=== PATIENT | female | born 1940 | race Caucasian/White ===

== ENCOUNTER 2019-11-13 14:49 | Outpatient (CLI) | payer MEDICARE, OTHER, SELFPAY ==
--- NOTE | ~2019-11-13 | MM_ITS ---
EXAMINATION: MM screening [facility] BI w cynthia HISTORY: Screening mammogram TECHNIQUE: Craniocaudal and mediolateral oblique 3-D tomosynthesis images were obtained and synthetic 2-D images were generated. CAD analysis was submitted and interpreted. COMPARISON: 10/16/2018, 09/06/2017, 07/18/2016 BREAST PARENCHYMAL COMPOSITION: There are scattered areas of fibroglandular density. FINDINGS: There is no evidence of suspicious mass, calcification, or architectural distortion to sugg est malignancy in either breast. There has been no suspicious interval change. IMPRESSION: 1. No mammographic evidence of malignancy. 2. Recommend routine screening mammography in one year. BI-RADS Category 1: Negative Reviewed, dictated and finalized at location A.
--- NOTE | ~2019-11-13 | DEXA_ITS ---
Bone Density Report Name: Elisabet Quan Age: 79 Sex: Female Ethnicity: White Date of : 1940 Indication: postmenopausal; prior fracture; asthma or emphysema; Referring Provider: NEELAM DODD Study: Bone densitometry was performed. Exam Date: November 13, 2019 Accession number: [id number] Bone Density: Region BMD T-score Z-score Classification AP Spine (L1-L4) 0.877 -1.5 1.0 Osteopenia Femoral Neck (Left) 0.559 -2.6 -0.4 Osteoporosis Total Hip (Left) 0.768 -1.4 0.5 Osteopenia Total Hip Bilateral Avg 0.760 -1.5 0.4 Osteopenia Femoral Neck (Right) 0.555 -2.6 -0.5 Osteoporosis Total Hip (Right) 0.750 -1.6 0.3 Osteopenia World Health Organization criteria for BMD impression classify patients as: Normal (T-score at or above -1.0), Osteopenia (T-score between -1.0 and -2.5), or Osteoporosis (T-score at or below -2.5). 10-year Fracture Risk: FRAX not reported because: Some T-score for Spine Total or Hip Total or Femoral Neck at or below -2.5 Clinical Information Provided by Patient: Has had a low trauma fracture Has used the following medications: Vitamin D Has the following medical conditions: Asthma or Emphysema Patient maximum height was 64 Menopause Age: 57 Does not regularly consume dairy products Drinks caffeinated beverages Onset of menses at age 16 Number of children 1 Impression: The patient has established osteoporosis, based on the Left Femoral Neck T-score and the existence of a prior fracture. The patient has risk factors, including: previous fracture. Discussion: HIGH RISK OF FRACTURE. BONE DENSITY IS UNDESIRABLY LOW AT ONE OR MORE SKELETAL SITES, CONSISTENT WITH POSTMENOPAUSAL OSTEOPOROSIS. This patient's lowest T-score, in a patient who has previously fractured, meets the World Health Organization's (WHO) criteria for severe osteoporosis. In untreated patients, the risk of osteoporotic fracture increases approximately two-fold for each 1.0 SD decrease in T-score. Low bone density is not the only risk factor for fracture; also consider factors such as patient's age, frailty or poor health, risk of falling, risk of injury, previous osteoporotic fracture, family history of osteoporosis, cigarette smoking, low body weight, etc. Not everyone with low bone mineral density has osteoporosis; osteomalacia and other metabolic bone disorders should also be considered. Patients who have osteoporosis should be evaluated for specific diseases and conditions (secondary causes) that may cause or contribute to bone loss. The [place] [employer]ocrinologists (AACE) and National Osteoporosis Foundation (NOF) recommend pharmacologic intervention for all postmenopausal women whose T-score is in this range. The patient should follow a healthful lifestyle (good nutrition with adequate calcium and vitamin D,
== END 2019-11-13 14:50 | disposition home or self-care (01) ==
LOC: ANHIMG 14:57
PROVIDERS: Visit Provider Obstetrics & Gynecology Gynecology
DX: Z12.31 Encounter for screening mammogram for malignant neoplasm of breast (principal); Z78.0 Asymptomatic menopausal state; M85.89 Other specified disorders of bone density and structure, multiple sites; M81.0 Age-related osteoporosis without current pathological fracture
CPT/HCPCS: 77063; 77067; 77080

== ENCOUNTER 2019-11-22 11:19 | Outpatient (CLI) | payer MEDICARE, OTHER, SELFPAY ==
--- NOTE | ~2019-11-22 | XR_ITS ---
XR foot RT min 3V 11/22/2019 11:43 Indication: Right foot pain. No recent trauma. Procedure: 4 views right foot Comparison: No prior studies for comparison. Findings: There is osteotomy of the first metatarsal medially consistent with hallux correction. Ther e is mild degenerative change of the first MTP joint. Osteopenia. Lisfranc joint intact. There is a d egenerative calcaneal enthesophyte of the plantar surface. No acute fracture or traumatic malalignmen t. No radiopaque foreign bodies. Impression: 1: Mild osteoarthritis of the first MTP joint with surgical changes consistent with hallux correction . Reviewed, dictated and finalized at location A. Impression: 1: Mild osteoarthritis of the first MTP joint with surgical changes consistent with hallux correction.
== END 2019-11-22 11:20 | disposition home or self-care (01) ==
LOC: ANHIMG 11:28
PROVIDERS: PCP Family Medicine; Visit Provider Physician Assistant
DX: M79.671 Pain in right foot (principal); M19.071 Primary osteoarthritis, right ankle and foot
CPT/HCPCS: 73630

== ENCOUNTER 2020-02-12 10:49 | Outpatient (CLI) | payer MEDICARE, OTHER, SELFPAY ==
--- NOTE | ~2020-02-12 | CT_ITS ---
EXAMINATION:CT lung screening DATE: 02/12/2020 11:05 INDICATION: Personal history of nicotine dependence. Smoker who quit 12 years ago with 45 pack year h istory. TECHNIQUE: Computed tomography (CT) of the chest was performed without intravenous contrast. Automate d exposure control and iterative reconstruction technique were employed. The dose-length product (DLP ) was 68.20 mGy-cm. COMPARISON: Chest CT 01/07/2019 FINDINGS: There is mild scarring at the lung apices. There is severe emphysema. There is mild atelect asis bilaterally. No pleural effusion. The heart size is normal. There are coronary artery calcificat ions. No pericardial effusion. There are old healed right rib fractures. There is mild thoracic spond ylosis. IMPRESSION: 1. Lung-RADS category 2: Benign appearance or behavior. Continue annual screening with noncontrast lo w-dose chest CT in 12 months. Reviewed, dictated and finalized at location A. IMPRESSION: 1. Lung-RADS category 2: Benign appearance or behavior. Continue annual screeni ng with noncontrast low-dose chest CT in 12 months.
== END 2020-02-12 10:50 | disposition home or self-care (01) ==
LOC: ANHIMG 10:51
PROVIDERS: PCP Family Medicine; Visit Provider Internal Medicine Critical Care Medicine
DX: Z12.2 Encounter for screening for malignant neoplasm of respiratory organs (principal); Z87.891 Personal history of nicotine dependence
CPT/HCPCS: G0297

== ENCOUNTER 2020-02-17 11:06 | Emergency (ER) | payer MEDICARE, OTHER, SELFPAY ==
--- NOTE | ~2020-02-17 | CT_ITS ---
EXAMINATION: CT facial & cervical spine wo DATE: 02/17/2020 13:44 INDICATION: Head injury. TECHNIQUE: Computed tomography (CT) of the maxillofacial region and cervical spine was performed with out intravenous contrast. Automated exposure control and iterative reconstruction technique were empl oyed. The dose-length product was 199.05 mGy-cm. COMPARISON: None FINDINGS: MAXILLOFACIAL CT: There are likely changes of ocular lens replacement surgeries. There is mild mucosal thickening in th e ethmoid sinuses. There is leftward deviation of the nasal septum. No fracture. CERVICAL SPINE CT: There is 11 degrees levoscoliosis of cervical spine. There is kyphosis of cervical spine. There is 2 mm anterolisthesis of C3 on C4. There is mild chronic height loss of T7 vertebral body. There is mild ly decreased disc height at C4-C5 and C5-C6 and moderately decreased disc height at C6-C7. The follow ing disc levels are specifically discussed: C2-C3: There is no uncovertebral joint osteoarthritis. There is severe bilateral facet joint osteoart hritis. There is no neural foraminal stenosis. There is no central canal stenosis. C3-C4: There is mild bilateral uncovertebral joint osteoarthritis. There is severe right and mild lef t facet joint osteoarthritis. There is mild right neural foraminal stenosis. There is mild central ca nal stenosis. C4-C5: There is severe right and mild left uncovertebral joint osteoarthritis. There is severe right facet joint osteoarthritis. There is mild right neural foraminal stenosis. There is mild central nam l stenosis. C5-C6: There is mild bilateral uncovertebral joint osteoarthritis. There is moderate facet joint oste oarthritis. There is mild right neural foraminal stenosis. There is mild central canal stenosis. C6-C7: There is mild right and severe left uncovertebral joint osteoarthritis. There is no facet join t osteoarthritis. There is mild left neural foraminal stenosis. There is mild central canal stenosis. C7-T1: There is no uncovertebral joint osteoarthritis. There is mild bilateral facet joint osteoarthr itis. There is no neural foraminal stenosis. There is no central canal stenosis. IMPRESSION: 1. No fracture. 2. Moderate cervical spondylosis. 3. Cervical levoscoliosis. Reviewed, dictated and finalized at location A.
--- NOTE | ~2020-02-17 | CT_ITS ---
EXAMINATION: CT brain wo con DATE: 02/17/2020 13:43 INDICATION: Head injury. TECHNIQUE: Computed tomography (CT) of the head was performed without intravenous contrast. The mA wa s adjusted according to patient size. Iterative reconstruction technique was employed. The dose-lengt h product was 605.33 mGy-cm. COMPARISON: None FINDINGS: There is no intracranial hemorrhage, acute infarction, or abnormal intracranial mass lesion . There are scattered areas of low attenuation in the cerebral white matter, which is within normal l imits for the patient's age. The ventricles are normal in size. There are likely changes of ocular le ns replacement surgeries. The paranasal sinuses are clear. The mastoid air cells are normal. IMPRESSION: 1. Normal aging brain. Reviewed, dictated and finalized at location A. IMPRESSION: 1. Normal aging brain.
[2020-02-17 11:15] VITALS: BP 151/67; PULSE 81; RESP 18; TEMP 37; O2SAT 97
--- NOTE | 2020-02-17 11:25 | PC.NURSE ---
Pt unable to verify home medications. Pt states she forgot her list at home.
--- NOTE | 2020-02-17 12:59 | ED.FALL ---
HPI - Fall General Chief Complaint: Fall Stated Complaint: fall, head injury Time Seen by Provider: 02/17/20 12:36 Source: patient History of Present Illness HPI Narrative: Patient 3 and her oxygen nasal cannula tube and fell forward, complaining of facial pain. Patient denies any loss of consciousness headache, possible neck pain. Patient denies other injuries, drove herself to the emergency room. Related Data Home Medications Medication Instructions Recorded Confirmed arformoterol 15 mcg/2 mL solution 2 ml INHALATION BID 06/10/19 10/17/19 for nebulization aspirin 81 mg tablet,delayed 81 mg PO DAILY 06/10/19 10/17/19 release fluticasone propionate 50 1 spray NASAL DAILY 06/10/19 10/17/19 mcg/actuation nasal spray,suspension revefenacin 175 mcg/3 mL solution 175 mcg INHALATION DAILY 06/10/19 10/17/19 for nebulization budesonide 0.5 mg/2 mL suspension 0.5 mg INHALATION BID ml 10/15/19 10/17/19 for nebulization Allergies Allergy/AdvReac Type Severity Reaction Status Date / Time amlodipine Allergy Unknown unk Verified 02/17/20 11:24 amoxicillin Allergy Unknown unk Verified 02/17/20 11:24 cefdinir Allergy Unknown unk Verified 02/17/20 11:24 fosinopril Allergy Unknown unk Verified 02/17/20 11:24 Sulfa (Sulfonamide Allergy Unknown unk Verified 02/17/20 11:24 Antibiotics) sulfamethizole Allergy Unknown unk Verified 02/17/20 11:24 trimethoprim Allergy Unknown unk Verified 02/17/20 11:24 promethazine AdvReac Severe Jittery Verified 02/17/20 11:24 Review of Systems Review of Systems: Narrative: CONSTITUTIONAL: Denies fever, chills, or sweats. EYES: Denies visual changes, redness, or discharge. ENT: Denies rhinorrhea, congestion, sore throat, or otalgia. CARDIOVASCULAR: Denies chest pain, palpitations, or edema. RESPIRATORY: Denies cough or dyspnea. GASTROINTESTINAL: Denies abdominal pain, nausea, vomiting, or diarrhea. GENITOURINARY: Denies dysuria or hematuria. SKIN: Denies rash or itching. MUSCULOSKELETAL: Denies back pain, joint pain, or myalgia. NEUROLOGIC: Denies headache, numbness, or weakness. PSYCHIATRIC: Denies anxiety or depression. [facility] Past Medical History Medical History Acute viral pharyngitis BMI 26.0-26.9,adult COPD exacerbation Depression with anxiety History of kidney stones History of peptic ulcer History of tobacco abuse Low back pain radiating to left leg Mixed hyperlipidemia Osteoarthritis involving multiple joints on both sides of body Right foot pain Seasonal allergic rhinitis Urinary frequency Vitamin D deficiency Family History Family History Mother Hypertension Cerebrovascular accident, Onset Age: 72 Sibling Asthma Father Acute myocardial infarction Family history of coronary artery disease Family history of congestive heart failure Patient's father is , Onset Age: 71 Grandparent Acute myocardial infarction Cerebrovascular accident Family history of malignant neoplasm Social History Social History Smoking status: Former smoker Smoking end date: 07/23/07 Alcohol intake: never Exam Narrative: Exam Narrative: General appearance: Well-developed, well-nourished Skin: Normal color, nasal abrasion, left forearm skin tear. Head: Normocephalic, nontraumatic Eyes: Clear conjunctiva ENT: Oropharynx normal, ears normal, nose normal Neck: Supple, nontender Chest and respiratory: Airway patent, no respiratory distress, no accessory muscle use Heart: Regular rate/rhythm Abdomen: Soft, nontender, no organomegaly, quiet bowel sounds Vascular: Normal peripheral pulses, normal capillary refill. Musculoskeletal: Normal range of motion, nontender back mild tenderness left neck, Neurologic: Alert and oriented ?3, TAP PULLER is normal as tested, no gross motor deficit
[2020-02-17] MEDS: ACETAMINOPHEN 325 MG TABLET 650 MG PO (13:27)
[2020-02-17] MEDS: IBUPROFEN 600 MG TABLET PO (13:28)
--- NOTE | 2020-02-17 13:28 | PC.NURSE ---
Pt to CT
[2020-02-17 14:30] VITALS: BP 162/78; PULSE 62; RESP 18; O2SAT 100
== END 2020-02-17 14:35 | disposition home or self-care (01) ==
PROVIDERS: Emergency Provider Emergency Medicine; PCP Family Medicine
DX: S00.83XA Contusion of other part of head, initial encounter (principal); J44.9 Chronic obstructive pulmonary disease, unspecified; E78.2 Mixed hyperlipidemia; M19.90 Unspecified osteoarthritis, unspecified site; E55.9 Vitamin D deficiency, unspecified; Z87.442 Personal history of urinary calculi; Z87.11 Personal history of peptic ulcer disease; Z87.891 Personal history of nicotine dependence; Z79.82 Long term (current) use of aspirin; W18.09XA Striking against other object with subsequent fall, initial encounter
CPT/HCPCS: 70450; 70486; 72125; 99284; A9270

== ENCOUNTER 2020-11-13 13:27 | Outpatient (CLI) | payer MEDICARE, OTHER, SELFPAY ==
[2020-11-13 15:04] LABS: Vitamin D 25 Hydroxy 82.8 ng/mL
== END 2020-11-13 13:28 | disposition home or self-care (01) ==
PROVIDERS: PCP Physician Assistant; Visit Provider Obstetrics & Gynecology Gynecology
DX: E55.9 Vitamin D deficiency, unspecified (principal)
CPT/HCPCS: 36415; 82306

== ENCOUNTER 2020-11-13 13:34 | Outpatient (CLI) | payer MEDICARE, OTHER, SELFPAY ==
--- NOTE | ~2020-11-13 | XR_ITS ---
XR wrist LT min 3V 11/13/2020 13:53 Indication: Left wrist pain Procedure: 4 views left wrist Comparison: No prior studies for comparison. Findings: There is polyarticular osteoarthritis of the triscaphe and first carpometacarpal joint. Nor mal mineralization. No significant soft tissue abnormality. No foreign bodies. No acute fracture or t raumatic malalignment. Impression: 1: No acute bone or joint abnormality. Reviewed, dictated and finalized at location A. Impression: 1: No acute bone or joint abnormality.
--- NOTE | ~2020-11-13 | XR_ITS ---
XR wrist RT min 3V 11/13/2020 13:53 Indication: Right wrist pain Procedure: 4 views right wrist Comparison: No prior studies for comparison. Findings: There is osteoarthritis of the first carpal metacarpal, MCP and triscaphe joints. No fractu re or traumatic malalignment. No significant soft tissue abnormality. No foreign bodies. Impression: 1: Moderate polyarticular osteoarthritis Reviewed, dictated and finalized at location A. Impression: 1: Moderate polyarticular osteoarthritis
== END 2020-11-13 13:35 | disposition home or self-care (01) ==
PROVIDERS: PCP Physician Assistant; Visit Provider Plastic Surgery
DX: M19.031 Primary osteoarthritis, right wrist (principal)
CPT/HCPCS: 36415; 73110; 82306

== ENCOUNTER 2020-11-20 10:56 | Outpatient (CLI) | payer MEDICARE, OTHER, SELFPAY ==
--- NOTE | ~2020-11-20 | MM_ITS ---
EXAMINATION: MM screening [facility] w cynthia HISTORY: Screening TECHNIQUE: Craniocaudal and mediolateral oblique 3-D tomosynthesis images were obtained and synthetic 2-D images were generated. CAD analysis was submitted and interpreted. COMPARISON: No prior mammogram is available for comparison at this institution. BREAST PARENCHYMAL COMPOSITION: There are scattered areas of fibroglandular density. FINDINGS: There is no evidence of suspicious mass, calcification, or architectural distortion to sugg est malignancy in either breast. There has been no suspicious interval change. IMPRESSION: 1. No mammographic evidence of malignancy. 2. Recommend routine screening mammography in one year. BI-RADS Category 1: Negative Reviewed, dictated and finalized at location A.
== END 2020-11-20 10:57 | disposition home or self-care (01) ==
LOC: ANHIMG 10:59
PROVIDERS: PCP Physician Assistant; Visit Provider Obstetrics & Gynecology Gynecology
DX: Z12.31 Encounter for screening mammogram for malignant neoplasm of breast (principal)
CPT/HCPCS: 77063; 77067

== ENCOUNTER 2020-11-20 11:28 | Outpatient (CLI) | payer MEDICARE, OTHER, SELFPAY ==
[2020-11-20 12:12] LABS: Alanine Aminotransferase 15 U/L (4-35); Alkaline Phosphatase 54 U/L (38-126); Anion Gap 6 mmol/L (8-16); Aspartate Amino Transferase 25 U/L (14-36); Bilirubin,Total 0.4 mg/dL (0.2-1.3); Blood Urea Nitrogen 28 mg/dL (7-17); Calcium 8.6 mg/dL (8.4-10.2); Carbon Dioxide 28 mmol/L (22-30); Chloride 107 mmol/L (98-107); Estimated Glomerular Filt Rate 48; Glucose 98 mg/dL (65-105); Potassium 4.5 mmol/L (3.4-5.0); Sodium 141 mmol/L (137-145)
[2020-11-20 12:43] LABS: Thyroid Stimulating Hormone 0.629 uIU/mL (0.465-4.680)
[2020-11-20 13:20] LABS: Folic Acid > 20.0 ng/mL (2.76->20)
== END 2020-11-20 11:29 | disposition home or self-care (01) ==
PROVIDERS: PCP Physician Assistant; Visit Provider Physician Assistant
DX: I10 Essential (primary) hypertension (principal)
CPT/HCPCS: 36415; 77063; 77067; 80053; 82607; 82746; 84443

== ENCOUNTER 2021-02-14 09:45 | Outpatient (CLI) | payer MEDICARE, OTHER, SELFPAY ==
--- NOTE | ~2021-02-14 | CT_ITS ---
EXAMINATION: CT lung screening DATE: 02/14/2021 10:12 INDICATION: Personal history of nicotine dependence, prior smoker with 80 pack year history TECHNIQUE: Computed tomography (CT) of the chest was performed without intravenous contrast. The dose -length product (DLP) was 81.96 mGy-cm. Automated exposure control and iterative reconstruction techn [employer] were employed. COMPARISON: 02/12/2020 FINDINGS: There is severe emphysema. The lungs are free of acute opacities. There is a 4 mm groundgla ss nodule of the right middle lobe on image 77. There is no pleural effusion or pneumothorax. No path ologically enlarged thoracic lymph nodes are identified. The heart size is normal. Calcified coronary artery atherosclerosis is noted. There is mild thoracic spondylosis. There are healed right rib frac tures. IMPRESSION: 1. Lung-RADS category 2: Benign appearance or behavior. Continue annual screening with noncontrast lo w-dose chest CT in 12 months. Reviewed, dictated and finalized at location A. IMPRESSION: 1. Lung-RADS category 2: Benign appearance or behavior. Continue annual screeni ng with noncontrast low-dose chest CT in 12 months.
== END 2021-02-14 09:46 | disposition home or self-care (01) ==
PROVIDERS: PCP Family Medicine; Visit Provider Internal Medicine Critical Care Medicine
DX: Z12.2 Encounter for screening for malignant neoplasm of respiratory organs (principal); Z87.891 Personal history of nicotine dependence
CPT/HCPCS: 71271

== ENCOUNTER 2021-03-10 14:11 | Outpatient (CLI) | payer MEDICARE, OTHER, SELFPAY ==
--- NOTE | ~2021-03-10 | US_ITS ---
EXAMINATION: US art doppler w press UE BI DATE: 03/10/2021 14:55 INDICATION: Peripheral vascular disease TECHNIQUE: Segmental pressures and plethysmographic and Doppler waveforms of the upper extremity kameron micaela were obtained. COMPARISON: None. FINDINGS: Right and left brachial artery pressures of 131 mm Hg and 141 mm Hg, respectively, are concordant (no rmal difference <= 30 mmHg). The right finger:brachial systolic pressure ratio is 0.91 (normal > 0.8) . Segmental pressure gradients are normal. Arterial waveforms are triphasic at the right brachial, ra dial and ulnar arteries and biphasic at the right subclavian and axillary arteries with brisk systoli c upstrokes throughout (normal upstroke < 0.2 s). The left finger:brachial systolic pressure ratio is 0.95. Segmental pressure gradients are normal. Ar terial waveforms are triphasic at the left radial and ulnar arteries and biphasic at the left subclav gela axillary and brachial arteries with brisk systolic upstrokes throughout. IMPRESSION: 1. No significant arterial occlusive disease to either upper limb with normal bilateral finger brachi al indices. Reviewed, dictated and finalized at location A. IMPRESSION: 1. No significant arterial occlusive disease to either upper limb with normal b ilateral finger brachial indices.
== END 2021-03-10 14:12 | disposition home or self-care (01) ==
PROVIDERS: PCP Family Medicine; Visit Provider Family Medicine
DX: I73.9 Peripheral vascular disease, unspecified (principal)
CPT/HCPCS: 93923

== ENCOUNTER 2021-04-21 11:13 | Outpatient (CLI) | payer MEDICARE, OTHER, SELFPAY ==
--- NOTE | 2021-04-21 11:18 | ECG_ITS ---
Measurements Intervals [place] Rate: 74 P: 79 AR: 144 QRS: 48 QRSD: 82 T: 62 QT: 366 QTc: 408 Interpretive Statements SINUS RHYTHM DELAYED PRECORDIAL R/S TRANSITION BORDERLINE ECG Electronically Signed On 04-21-2021 11:56:20 CDT by Gigi Capellan D.O.
[2021-04-21 15:04] LABS: Anion Gap 8 mmol/L (8-16); Blood Urea Nitrogen 32 mg/dL (7-17); Calcium 9.3 mg/dL (8.4-10.2); Carbon Dioxide 25 mmol/L (22-30); Chloride 108 mmol/L (98-107); Estimated Glomerular Filt Rate 36; Glucose 106 mg/dL (65-110); Potassium 4.8 mmol/L (3.4-5.0); Sodium 141 mmol/L (137-145)
== END 2021-04-21 11:14 | disposition home or self-care (01) ==
PROVIDERS: Anesthesiology; PCP Family Medicine; Visit Provider Plastic Surgery
DX: Z01.818 Encounter for other preprocedural examination (principal); I10 Essential (primary) hypertension; Z51.81 Encounter for therapeutic drug level monitoring; Z79.899 Other long term (current) drug therapy
CPT/HCPCS: 36415; 80048; 93005

== ENCOUNTER 2021-04-28 01:06 | Day surgery (SDC) | payer MEDICARE, OTHER, SELFPAY ==
[2021-04-18 10:48] VITALS: BMI 25.4
--- NOTE | 2021-04-27 12:50 | WPDANESEPPF ---
Anes - Initial Pre Proc Eval Procedure: Operation Date: 04/28/21 10:00 Proposed Procedures p Left Trapezium Resection Arthroplasty with Arthrex Internal Brace - Castillo Vasquez MD Date/Time: 04/27/21 12:50 Surgeon: Castillo Vasquez MD Pre Op Diagnosis: Lt Basal Joint Arthritis Patient Data Age: 80 Gender: F Height: 1.63 m Weight: 67.27 kg Allergies Allergy/AdvReac Type Severity Reaction Status Date / Time amoxicillin Allergy Unknown Gastrointestinal Verified 04/18/21 10:38 Upset cefdinir Allergy Unknown Gastrointestinal Verified 04/18/21 10:38 Upset fosinopril Allergy Unknown Gastrointestinal Verified 04/18/21 10:38 Upset Sulfa (Sulfonamide Allergy Unknown Gastrointestinal Verified 04/18/21 10:38 Antibiotics) Upset sulfamethizole Allergy Unknown Gastrointestinal Verified 03/02/21 14:18 Upset trimethoprim Allergy Unknown Gastrointestinal Verified 04/18/21 10:38 Upset promethazine AdvReac Severe Jittery Verified 03/02/21 14:18 Home Medications Medication Instructions Recorded Confirmed Type aspirin 81 mg tablet,delayed 81 mg PO HS 06/10/19 04/28/21 History release meloxicam 15 mg tablet 15 mg PO DAILY #30 tablet 12/31/19 04/28/21 Rx inhalational spacing device #1 ea 07/02/20 04/28/21 Rx methylcellulose (laxative) 500 mg 500 mg PO DAILY 07/05/20 04/28/21 History tablet mirabegron 50 mg tablet,extended 50 mg PO HS 07/05/20 04/28/21 History release 24 hr ergocalciferol (vitamin D2) 1,250 50,000 unit PO WEEKLY #12 cap 07/26/20 04/28/21 Rx mcg (50,000 unit) capsule gabapentin 100 mg capsule 100 mg PO QAM 08/05/20 04/28/21 History albuterol sulfate See Rx Instructions .ROUTE 08/16/20 04/28/21 Rx .COMPLEX #30 vial budesonide 0.5 mg/2 mL suspension See Rx Instructions .ROUTE 08/16/20 04/28/21 Rx for nebulization .COMPLEX #60 vial revefenacin 175 mcg/3 mL solution See Rx Instructions .ROUTE 08/16/20 04/28/21 Rx for nebulization .COMPLEX #30 vial arformoterol 15 mcg/2 mL solution 2 ml INHALATION BID 11/18/20 04/28/21 History for nebulization fluticasone propionate 50 1 - 2 spray INTRANASAL BID #16 ml 01/18/21 04/28/21 Rx mcg/actuation nasal spray,suspension lactobacillus combination no.4 3 3,000 mmu cells PO DAILY 03/02/21 04/28/21 History billion cell capsule multivitamin with minerals 1 tablet PO DAILY 03/02/21 04/28/21 History omeprazole 40 mg capsule,delayed 40 mg PO DAILY #30 cap 03/02/21 04/28/21 Rx release amiloride-hydrochlorothiazide 1 tablet PO HS 04/18/21 04/28/21 History escitalopram oxalate 10 mg PO QAM 04/18/21 04/28/21 History hydrocodone-acetaminophen 0.5 tablet PO HS PRN 04/18/21 04/28/21 History losartan 100 mg PO HS 04/18/21 04/28/21 History mupirocin 1 applic TOPICAL TID PRN 04/18/21 04/28/21 History Patient hx anesthesia problems: none Family hx anesthesia problems: none Results Review: All pre-operative results and documents have been reviewed as part of the pre-operative evaluation. [facility] Past Medical History Medical History (Updated 04/27/21 @ 12:50 by Maciel Buckner, ) Acute viral pharyngitis BMI 26.0-26.9,adult COPD exacerbation Depression with anxiety History of kidney stones History of peptic ulcer History of tobacco abuse Hypertension Idiopathic sleep related nonobstructive alveolar hypoventilation Internal hemorrhoids Kidney stone Low back pain radiating to left leg Melena Mixed hyperlipidemia On home O2 PRN Opioid use, unspecified, uncomplicated Osteoarthritis involving multiple joints on both sides of body Osteoarthritis of right knee Polyosteoarthritis Right foot pain Seasonal allergic rhinitis Sigmoid diverticulosis Urinary frequency Vitamin D deficiency Family History Family History Mother Hypertension Cerebrovascular accident, Onset Age: 72 Sibling Asthma Father Acute myocardial infarction Family hi
[2021-04-28] VITALS (7 sets, daily range): BP systolic 146–165; BP diastolic 60–82; PULSE 71–80; RESP 14–18; TEMP 36.1–36.4; O2SAT 93–100
--- NOTE | ~2021-04-28 | XR_ITS ---
EXAMINATION: XR surgery orthopedic DATE: 04/28/2021 11:01 INDICATION: Left thumb arthroplasty TECHNIQUE: 5 fluoroscopic images of the left hand centered at the base of the thumb were obtained dur ing procedure performed by Dr. Vasquez. Radiologist was not present for the imaging or procedure. The a mount of fluoroscopy time used during this procedure was 0.3 minutes. COMPARISON: None. FINDINGS: There is been resection of the trapezium for first carpal metacarpal suspension arthroplasty. A round lucency at the base of the first metacarpal likely represents anchor site for internal brace. Expect ed postoperative gas is seen at the resection bed on the images obtained with the film in traction. N o fracture. There is irregular cortical margin suggesting of some cystic change at the ulnar side of the proximal articular surface of the lunate which could be due to ulnocarpal impaction with suggesti on of mild ulnar positive variance. IMPRESSION: 1. Expected postoperative changes of first carpometacarpal suspension arthroplasty with resection of the trapezium. See procedure note for further detail. 2. Findings suggesting possible ulnocarpal impaction. Reviewed, dictated and finalized at location B. IMPRESSION: 1. Expected postoperative changes of first carpometacarpal suspension arthropla sty with resection of the trapezium. See procedure note for further detail. 2. Findings suggesting possible ulnocarpal impaction.
--- NOTE | 2021-04-28 07:13 | WPDHPUPDATE1 ---
History and Physical Update Update Date/Time: 04/28/21 07:13 History and Physical has been reviewed, including an updated exam of the patient. There are NO changes in the patient's condition. Risks, benefits, and alternatives have been discussed and questions answered. Patient agrees to proceed with procedure.
[2021-04-28] MEDS: LACTATED RINGERS 1,000 ML 30 ML IV CONT (08:23)
[2021-04-28] MEDS: ACETAMINOPHEN 500 MG TABLET 1000 MG PO (08:26)
[2021-04-28] MEDS: ceFAZolin 2 GM/D5W 50 ML 2 GM/50 ML BAG IVPB (09:44)
[2021-04-28] MEDS: LIDO 1%/EPINEPHRINE 1:100,000 50 ML VIAL INFILTRATE (10:52)
[2021-04-28] MEDS: BUPIVACAINE HCL 0.5% PF 30 ML VIAL INFILTRATE (11:00)
--- NOTE | 2021-04-28 11:35 | W.PM.PROC2 ---
Procedure Note - Detailed Date of Procedure 04/28/21 Pre-op Diagnosis Lt Basal Joint Arthritis Post-op Diagnosis same Procedure Performed Left trapezium resection arthroplasty with Arthrex internal brace Surgeon Castillo Vasquez MD Mounting Machine Operator Garrett johnson Anesthesia general Indications Failed conservative treatment Findings Severe osteoarthritis Description of Procedure The appropriate site at the left radial wrist was marked with the patient in the holding area. She was then taken to the operating room and placed supine on the operating table. A time-out was held and confirmed. She was given general anesthesia and the left upper extremity was prepped and draped in usual fashion. The operative site was remarked and locally infiltrated with 1% lidocaine with epinephrine. A 4 in Bobby wrap was used to exsanguinate the extremity and the tourniquet was inflated to 250 mmHg. The incision was made as marked and dissection was carried carefully through the subcutaneous tissue to the joint capsule. The interspace between the EPL and APB was accessed for that. A single branch of the superficial radial nerve was was identified and held out of the way with vessel loops. The trapezium was identified and dissected widely with a 15 blade and [place] elevator. The trapezium was removed with a rongeur. It did not require splinting. The entire structure was removed and that was confirmed with C-arm images. The Arthrex internal brace set was opened. The appropriate site at the base of the 2nd metacarpal was exposed and the guidewire inserted. The drill was passed over that and the hole was drilled for the SwiveLock. for the SwiveLock and SutureTape were inserted at that point that site was secure. The radial base of the 1st metacarpal was exposed and the guidewire passed appropriately into that. The hole was drilled and the 2nd SwiveLock was placed satisfactorily. The site was imaged again in extension and compression the site was irrigated with saline and the capsule repaired with 4-0 Vicryl. The wound was closed with intradermal 4-0 Vicryl. The region was infiltrated with 0.5% Marcaine. The usual bandage with the short thumb spica splint was applied. The patient was discharged from the operating room stable condition she has meloxicam and hydrocodone at home. She was given Ancef 2 g prior to surgery and also took a 1000 mg of oral 5 all in preop. Implants Arthrex internal brace ligament augmentation repair Estimated Blood Loss 2 Tourniquet Time 46 Drains No Packing No Pathology none sent Complications No immediate complications Condition stable Disposition PACU
== END 2021-04-28 12:45 | disposition home or self-care (01) ==
PROVIDERS: PCP Family Medicine; Visit Provider Plastic Surgery
PROC: (CPT 25447; principal; 2021-04-28 10:00)
DX: M18.12 Unilateral primary osteoarthritis of first carpometacarpal joint, left hand (principal); J44.9 Chronic obstructive pulmonary disease, unspecified; F41.8 Other specified anxiety disorders; I10 Essential (primary) hypertension; G47.34 Idiopathic sleep related nonobstructive alveolar hypoventilation; E78.2 Mixed hyperlipidemia; E55.9 Vitamin D deficiency, unspecified; Z79.891 Long term (current) use of opiate analgesic; Z99.81 Dependence on supplemental oxygen; Z79.82 Long term (current) use of aspirin; Z79.51 Long term (current) use of inhaled steroids; Z87.891 Personal history of nicotine dependence
CPT/HCPCS: 25447; A9270; C1713; J0690; J1100; J2405; J2704; J3010; J7120

== ENCOUNTER 2021-06-13 12:24 | Outpatient (CLI) | payer MEDICARE, OTHER, SELFPAY ==
--- NOTE | ~2021-06-13 | US_ITS ---
EXAMINATION: US carotid duplex BI DATE: 06/13/2021 13:01 INDICATION: Carotid stenosis and occlusion. TECHNIQUE: Grayscale, color Doppler, and pulsed Doppler images of the cervical carotid arteries were obtained. The degree of vessel stenosis is placed in one of the following categories: normal, <50%, 5 0-69%, >=70% but less than near-occlusion, near-occlusion, or total occlusion. Note that percent sten osis relative to normal distal artery lumen diameter is indirectly measured from velocity measurement s as described by Alexsander, et al. Radiology 2003; 229:340-346. COMPARISON: None. FINDINGS: RIGHT: The right common carotid artery (CCA) peak systolic velocity (PSV) is 86 cm/s. The right internal car otid artery (ICA) PSV is 89 cm/s. The right ICA end-diastolic velocity (EDV) is 24 cm/s. The right IC A/CCA PSV ratio is 1.0. Grayscale and color Doppler images yield an estimate of <50% diameter reducti on from plaque in the ICA. The external carotid artery (ECA) PSV is 82 cm/s. There is antegrade flow in the right vertebral artery. LEFT: The left CCA PSV is 86 cm/s. The left ICA PSV is 97 cm/s. The left ICA EDV is 22 cm/s. The left ICA/C CA PSV ratio is 1.1. Grayscale and color Doppler images yield an estimate of <50% diameter reduction from plaque in the ICA. The ECA PSV is 131 cm/s. There is antegrade flow in the left vertebral artery . IMPRESSION: 1. <50% stenosis in the right internal carotid artery. 2. <50% stenosis in the left internal carotid artery. Reviewed, dictated and finalized at location A. HANDLER
== END 2021-06-13 12:25 | disposition home or self-care (01) ==
LOC: ANHIMG 12:28
PROVIDERS: PCP Family Medicine; Visit Provider Family Medicine
DX: I65.23 Occlusion and stenosis of bilateral carotid arteries (principal)
CPT/HCPCS: 93880

== ENCOUNTER → 2021-08-09 10:45 | Outpatient (CLI) | payer MEDICARE, OTHER, SELFPAY ==
[2021-08-09 19:53] LABS: SARS-CoV-2 RNA PCR Negative
== END ==
PROVIDERS: PCP Family Medicine; Visit Provider Nurse Practitioner Family
DX: R68.89 Other general symptoms and signs (principal); Z20.822 Contact with and (suspected) exposure to COVID-19
CPT/HCPCS: C9803; U0003; U0005

== ENCOUNTER 2021-08-12 10:19 | Outpatient (CLI) | payer MEDICARE, OTHER, SELFPAY ==
--- NOTE | ~2021-08-12 | XR_ITS ---
XR chest 2V DATE: 08/12/2021 10:37 INDICATION: Shortness of breath TECHNIQUE: PA and lateral views COMPARISON: 02/14/2021 CT lung screening (lung BI-RADS Category 2) 01/15/2018 two-view chest FINDINGS: Relatively sparse lung markings in the upper half of the lungs, bilateral hyperinflation, c onsistent with bullous emphysema. No pulmonary infiltrate or consolidation, pleural effusion or pulmonary vascular congestion or pneumo thorax is detected. Normal heart size. No hilar or mediastinal enlargement. Aortic arch calcification. Posterolateral old right eighth and ninth rib fractures. IMPRESSION: Bullous emphysema Reviewed, dictated and finalized at location A. SS TEST TECHNICIAN IMPRESSION: Bullous emphysema
== END 2021-08-12 10:20 | disposition home or self-care (01) ==
PROVIDERS: PCP Family Medicine; Visit Provider Nurse Practitioner Family
DX: R06.02 Shortness of breath (principal); R09.3 Abnormal sputum; J43.8 Other emphysema
CPT/HCPCS: 71046

== ENCOUNTER 2021-09-03 11:52 | Outpatient (CLI) | payer MEDICARE, OTHER, SELFPAY ==
[2021-09-03 12:59] LABS: Anion Gap 2 mmol/L (8-16); Blood Urea Nitrogen 17 mg/dL (7-17); Calcium 9.3 mg/dL (8.4-10.2); Carbon Dioxide 30 mmol/L (22-30); Chloride 106 mmol/L (98-107); Estimated Glomerular Filt Rate 43; Glucose 108 mg/dL (65-110); Potassium 5.2 mmol/L (3.4-5.0); Sodium 138 mmol/L (137-145)
== END 2021-09-03 11:53 | disposition home or self-care (01) ==
PROVIDERS: PCP Family Medicine; Visit Provider Physician Assistant
DX: E87.5 Hyperkalemia (principal)
CPT/HCPCS: 36415; 80048

== ENCOUNTER 2021-11-07 13:34 | Outpatient (CLI) | payer MEDICARE, OTHER, SELFPAY ==
[2021-11-07 18:07] LABS: Vitamin D 25 Hydroxy 64.5 ng/mL
== END 2021-11-07 13:35 | disposition home or self-care (01) ==
LOC: ANHLAB 13:37
PROVIDERS: PCP Family Medicine; Visit Provider Obstetrics & Gynecology Gynecology
DX: E55.9 Vitamin D deficiency, unspecified (principal)
CPT/HCPCS: 36415; 82306

== ENCOUNTER 2022-02-16 15:10 | Outpatient (CLI) | payer MEDICARE, OTHER, SELFPAY ==
--- NOTE | ~2022-02-16 | DEXA_ITS ---
Bone Density Report Name: AZALIA FRANK Age: 81 Sex: Female Ethnicity: White Date of : 1940 Indication: osteopenia; monitoring treatment; height loss; asthma or emphysema; Referring Provider: NEELAM DODD Study: Bone densitometry was performed. Exam Date: February 16, 2022 Accession number: [id number] Bone Density: Region BMD T-score Z-score Classification AP Spine(L1-L4) 0.931 -1.1 1.6 Osteopenia Femoral Neck (Left) 0.596 -2.3 0.0 Osteopenia Total Hip (Left) 0.764 -1.5 0.6 Osteopenia Femoral Neck (Right) 0.576 -2.5 -0.2 Osteoporosis Total Hip (Right) 0.762 -1.5 0.5 Osteopenia Total Hip Mean 0.763 -1.5 0.6 Osteopenia World Health Organization criteria for BMD impression classify patients as: Normal (T-score at or above -1.0), Osteopenia (T-score between -1.0 and -2.5), or Osteoporosis (T-score at or below -2.5). 10-year Fracture Risk: FRAX not reported because: Some T-score for Spine Total or Hip Total or Femoral Neck at or below -2.5 Treated for osteoporosis Previous Exams: Region Exam Age BMD T-score BMD Change BMD Change Date g/cm2 vs Baseline vs Previous AP Spine (L1-L4) 02/16/2022 81 0.931 -1.1 0.054 (6.2%)* 0.054 (6.2%)* 11/13/2019 79 0.877 -1.5 Total Hip(Left) 02/16/2022 81 0.764 -1.5 -0.004 (-0.5%) -0.004 (-0.5%) 11/13/2019 79 0.768 -1.4 Total Hip(Right) 02/16/2022 81 0.762 -1.5 0.012 (1.6%) 0.012 (1.6%) 11/13/2019 79 0.750 -1.6 *Denotes significance at 95% confidence level, LSC for AP Spine = 0.022 g/cm2, LSC for Total Hip = 0.027 g/cm2 Clinical Information Provided by Patient: Is being treated for osteoporosis Has used the following medications: Prolia (i.e. denosumab), Vitamin D, Calcium Has the following medical conditions: Asthma or Emphysema Patient maximum height was 64.5 Menopause Age: 57 No regular weight bearing exercise Does not regularly consume dairy products Drinks caffeinated beverages Onset of menses at age 15 Number of children 1 Impression: The patient has osteoporosis, based on the Right Femoral Neck T-score. No significant bone loss was observed. Discussion: PATIENT UNDER TREATMENT WITH NO SIGNIFICANT BMD LOSS SINCE LAST EXAM. In an untreated patient, BMD typically declines with age. A lack of decline or gain is usually a sign that treatment is efficacious and fracture risk is reduced. It is important to ask patients whether they are taking their medications
--- NOTE | ~2022-02-16 | MM_ITS ---
EXAMINATION: MM screening marisela BI w cynthia HISTORY: Screening mammogram TECHNIQUE: Craniocaudal and mediolateral oblique 3-D tomosynthesis images were obtained and synthetic 2-D images were generated. CAD analysis was submitted and interpreted. COMPARISON: 11/20/2020, 11/13/2019, 10/16/2018 bilateral screening mammogram examinations BREAST PARENCHYMAL COMPOSITION: There are scattered areas of fibroglandular density. FINDINGS: There is no evidence of suspicious mass, calcification, or architectural distortion to sugg est malignancy in either breast. There has been no suspicious interval change. IMPRESSION: 1. No mammographic evidence of malignancy. 2. Recommend routine screening mammography in one year. BI-RADS Category 1: Negative Reviewed, dictated and finalized at location B.
== END 2022-02-16 15:11 | disposition home or self-care (01) ==
LOC: ANHIMG 15:11
PROVIDERS: PCP Family Medicine; Visit Provider Obstetrics & Gynecology Gynecology
DX: Z12.31 Encounter for screening mammogram for malignant neoplasm of breast (principal); Z78.0 Asymptomatic menopausal state; M85.89 Other specified disorders of bone density and structure, multiple sites; M81.0 Age-related osteoporosis without current pathological fracture
CPT/HCPCS: 77063; 77067; 77080

== ENCOUNTER 2022-03-17 15:01 | Outpatient (CLI) | payer MEDICARE, OTHER, SELFPAY ==
--- NOTE | ~2022-03-17 | CT_ITS ---
EXAMINATION: CT diagnostic chest wo con DATE: 03/17/2022 15:29 INDICATION: Lung nodule, history of tobacco use TECHNIQUE: Computed tomography (CT) of the chest was performed without intravenous contrast. The dose -length product (DLP) was 63.97 mGy-cm. Automated exposure control and iterative reconstruction techn ique were employed. COMPARISON: 02/14/2021 FINDINGS: There is severe emphysema. A stable 4 mm round glass nodule is noted in the right middle lo be. The lungs are free of acute opacities. No pleural effusion or pneumothorax. No pathologically enl arged thoracic lymph nodes are identified. The heart size is normal. Calcified coronary artery athero sclerosis is noted. There is mild thoracic spondylosis. IMPRESSION: 1. Severe emphysema. 2. Stable 4 mm groundglass nodule of the right middle lobe. Reviewed, dictated and finalized at location B.
== END 2022-03-17 15:02 | disposition home or self-care (01) ==
PROVIDERS: PCP Family Medicine; Visit Provider Physician Assistant
DX: R91.8 Other nonspecific abnormal finding of lung field (principal); J43.9 Emphysema, unspecified
CPT/HCPCS: 71250

== ENCOUNTER 2022-05-03 11:50 | Outpatient (CLI) | payer MEDICARE, OTHER, SELFPAY ==
[2022-05-03 12:20] LABS: Basophils Percent Auto 0.3 % (0.2-1.2); Eosinophils Absolute Auto 0.3 K/mm3 (0-0.3); Eosinophils Percent Auto 4.8 % (0-4.4); Hemoglobin 12.5 g/dL (12.0-15.0); Immature Granulocyte Absolute 0.03 K/mm3 (0.00-0.031); Immature Granulocyte Percent A 0.5 % (0-0.5); Lymphocytes Absolute Auto 0.84 K/mm3 (0.9-3.2); Lymphocytes Percent Auto 14.4 % (18.3-44.2); Mean Corpuscular HGB Conc 31.3 g/dl (32-36); Mean Corpuscular Volume 92.8 fl (80-100); Mean Platelet Volume 10.2 fl (7.4-10.4); Monocytes Absolute Auto 0.4 K/mm3 (0.1-0.6); Monocytes Percent Auto 7.2 % (2.6-8.5); Neutrophils Absolute Auto 4.3 K/mm3 (1.3-6.7); Neutrophils Percent Auto 72.8 % (45.5-73.1); Platelet Count Result 205 k/mm3 (150-375); Red Blood Count 4.31 M/mm3 (4.2-5.4); Red Cell Distribution Width 14.4 % (11.5-14.5); White Blood Count 5.8 K/mm3 (4.5-10.0)
[2022-05-03 12:31] LABS: Alanine Aminotransferase 16 U/L (6-35); Albumin Level 3.9 g/dL (3.5-5.1); Alkaline Phosphatase 55 U/L (38-126); Anion Gap 9 mmol/L (8-16); Aspartate Amino Transferase 20 U/L (14-36); Bilirubin,Total 0.6 mg/dL (0.2-1.3); Blood Urea Nitrogen 21 mg/dL (7-17); Calcium 8.9 mg/dL (8.4-10.2); Carbon Dioxide 27 mmol/L (22-30); Chloride 106 mmol/L (98-107); Cholesterol 215 mg/dL (0-200); Estimated Glomerular Filt Rate 53; Glucose 109 mg/dL (65-110); HDL Direct 62 mg/dL; Potassium 4.5 mmol/L (3.4-5.0); Sodium 142 mmol/L (137-145); Triglycerides 119 mg/dL (<150)
[2022-05-03 12:42] LABS: LDL Cholesterol Direct 107 mg/dL
== END 2022-05-03 11:51 | disposition home or self-care (01) ==
PROVIDERS: PCP Family Medicine; Visit Provider Family Medicine
DX: R53.83 Other fatigue (principal); N18.30 Chronic kidney disease, stage 3 unspecified; E55.9 Vitamin D deficiency, unspecified; E78.2 Mixed hyperlipidemia; Z00.00 Encounter for general adult medical examination without abnormal findings
CPT/HCPCS: 36415; 80053; 80061; 82306; 84443; 85025

== ENCOUNTER 2022-05-30 17:23 | Outpatient (CLI) | payer MEDICARE, OTHER, SELFPAY ==
--- NOTE | ~2022-05-30 | XR_ITS ---
EXAMINATION: XR abdomen/kub 1V INDICATION: Bilateral kidney stones TECHNIQUE: Supine views of the abdomen were obtained on 2 radiographs. COMPARISON: 04/23/[address] of the same date FINDINGS: There are multiple small stones of the right kidney without significant change which measur e up to 3 mm. There are multiple persistent stones at left ureteropelvic junction which measure up to 9 mm. Stones measuring up to 4 mm are present in the left kidney lower pole. These appear to have de creased in size. The bowel gas pattern is normal. The visualized lung bases are clear. IMPRESSION: 1. Bilateral nephrolithiasis and multiple stones at left ureteropelvic junction. Reviewed, dictated and finalized at location B. FISHER IMPRESSION: 1. Bilateral nephrolithiasis and multiple stones at left ureteropelvic junction .
--- NOTE | ~2022-05-30 | CT_ITS ---
EXAMINATION: CT abdomen pelvis wo con DATE: 05/30/2022 18:06 INDICATION: Bilateral kidney stones TECHNIQUE: Computed tomography (CT) of the abdomen and pelvis was performed without intravenous contr ast. Automated exposure control and iterative reconstruction technique were employed. Exam dose: 181 .19 mGy-cm total exam DLP. COMPARISON: 08/16/2017 CT abdomen pelvis FINDINGS: Mild atelectasis at the lung bases. Normal heart size. No pericardial or pleural effusion. The gallbladder is contracted. No hepatic, splenic, pancreatic or adrenal space-occupying mass lesion . No bile duct or pancreatic duct dilatation. Multiple right renal cysts are suggested on this limited noncontrast examination, the largest 3.2 cm. There are multiple bilateral renal calculi, at least 8 in number on the right, with multiple stones i n the lower pole of the left kidney and several mid and upper pole left renal calculi. There are multiple stones in the dependent aspect of the left renal pelvis. No ureteral calculus or o bstruction or hydronephrosis is detected on either side. Small calcified probable uterine fibroid. Uterus, adnexal areas and urinary bladder are otherwise unr emarkable. There is extensive calcification of the abdominal aorta but no aneurysm. No intraperitoneal or retrop eritoneal or pelvic mass lesion or adenopathy or ascites. Normal appendix. Scattered left and right colon diverticula; no CT evidence of diverticulitis. No bowel obstruction, b owel wall thickening, pneumatosis or intraperitoneal free air. Small fat-containing umbilical hernia. No suspicious osteolytic or osteoblastic lesions. IMPRESSION: Persistent prominent bilateral nephrolithiasis No ureteral calculus or hydroureteronephrosis Right renal cysts are suggested on this limited noncontrast examination Diverticulosis of the colon; no CT evidence of diverticulitis Normal appendix Reviewed, dictated and finalized at Location A. Reviewed, dictated and finalized at location A. GENERATION MARKETING MANAGER
== END 2022-05-30 17:24 | disposition home or self-care (01) ==
PROVIDERS: PCP Family Medicine; Visit Provider Nurse Practitioner Adult Health
DX: N20.0 Calculus of kidney (principal); N28.1 Cyst of kidney, acquired; K57.90 Diverticulosis of intestine, part unspecified, without perforation or abscess without bleeding
CPT/HCPCS: 74018; 74176

== ENCOUNTER 2022-07-18 16:26 | Outpatient (CLI) | payer MEDICARE, OTHER, SELFPAY ==
--- NOTE | ~2022-07-18 | XR_ITS ---
EXAMINATION: XR chest 2V Exam Date/Time: 07/18/2022 16:20 CONTINUOUS IMPROVEMENT COACH HISTORY: SOB, cough, COPD Comparison: 08/12/2021. RESULT: Lines, tubes, and devices: None. Lungs and pleura: Increased bilateral mid and lower lung reticular reticulonodular opacities. Emphys ematous change. Cardiomediastinal silhouette: Stable. Other: No acute osseous or upper abdominal finding. IMPRESSION: Pulmonary opacities may represent bronchiolitis, as can be seen with atypical infection, asthma, aspi ration, and small airways disease. Reviewed, dictated and finalized at location K. INUOUS IMPROVEMENT COACH IMPRESSION: Pulmonary opacities may represent bronchiolitis, as can be seen with atypical i nfection, asthma, aspiration, and small airways disease.
[2022-07-18 18:11] LABS: Influenza A QL RT-PCR Negative (Negative); Influenza B QL RT-PCR Negative (Negative); RSV RNA, RT-PCR Negative (Negative); SARS-CoV-2 RNA PCR Positive
== END 2022-07-18 16:27 | disposition home or self-care (01) ==
LOC: ANHIMG 16:26
PROVIDERS: PCP Family Medicine; Visit Provider Physician Assistant
DX: U07.1 COVID-19 (principal); R91.8 Other nonspecific abnormal finding of lung field; R06.02 Shortness of breath; J44.1 Chronic obstructive pulmonary disease with (acute) exacerbation
CPT/HCPCS: 71046; 87637

== ENCOUNTER 2022-10-30 14:12 | Outpatient (CLI) | payer MEDICARE, OTHER, SELFPAY ==
[2022-10-30 17:23] LABS: Vitamin D 25 Hydroxy 69.3 ng/mL
== END 2022-10-30 14:13 | disposition home or self-care (01) ==
PROVIDERS: PCP Family Medicine; Visit Provider Obstetrics & Gynecology Gynecology
DX: E55.9 Vitamin D deficiency, unspecified (principal)
CPT/HCPCS: 36415; 82306

== ENCOUNTER 2022-11-17 12:32 | Outpatient (CLI) | payer MEDICARE, OTHER, SELFPAY ==
[2022-11-17 12:50] VITALS: PULSE 80; O2SAT 94
[2022-11-17 12:55] VITALS: PULSE 96; O2SAT 86
[2022-11-17 13:00] VITALS: PULSE 97; O2SAT 88
[2022-11-17 13:05] VITALS: PULSE 96; O2SAT 91
[2022-11-17 13:20] VITALS: PULSE 84; O2SAT 94
--- NOTE | 2022-11-17 13:22 | HOMEO2EVAL ---
Evaluation was performed at [facility] Home Oxygen Evaluation RC: Home Oxygen (O2) Evaluation Start: 11/17/22 13:19 Freq: Status: Active Protocol: RPE Activity Type Activity Date Activity User E-sign Co-sign Detail Recorded Client Recorded Date Recorded By Document 11/17/22 12:50 [email or web address] [email or web address] 11/17/22 13:21 DJO Document 11/17/22 12:55 [email or web address] [email or web address] 11/17/22 13:21 DJO Document 11/17/22 13:00 [email or web address] [email or web address] 11/17/22 13:21 DJO Document 11/17/22 13:05 [email or web address] [email or web address] 11/17/22 13:21 DJO Document 11/17/22 13:20 [email or web address] [email or web address] 11/17/22 13:21 DJO 11/17/22 11/17/22 11/17/22 12:50 12:55 13:00 Home O2 Evaluation [Oxygen] -Test Phase Resting Exercise Exercise -Oxygen Delivery Room Air Room Air Nasal Cannula -Oxygen Flow Rate (L/min) 1 [Pulse Oximetry] -Pulse Oximetry (90-100 %) 94 86 L 88 L [Pulse Rate] -Pulse Rate (60-100 beats/min) 80 96 97 [Evaluation] -Activity Tolerance [Exercise] -Ambulation Distance (feet) -Ambulation Distance (meters) [Charges] -Treatment Charges O2 Evaluation - Outpatient 11/17/22 11/17/22 13:05 13:20 Home O2 Evaluation [Oxygen] -Test Phase Exercise Resting -Oxygen Delivery Nasal Cannula Room Air -Oxygen Flow Rate (L/min) 2 [Pulse Oximetry] -Pulse Oximetry (90-100 %) 91 94 [Pulse Rate] -Pulse Rate (60-100 beats/min) 96 84 [Evaluation] -Activity Tolerance Good [Exercise] -Ambulation Distance (feet) 750 -Ambulation Distance (meters) 228.58 [Charges] -Treatment Charges
== END 2022-11-17 12:33 | disposition home or self-care (01) ==
PROVIDERS: PCP Family Medicine; Visit Provider Physician Assistant
DX: R09.02 Hypoxemia (principal)
CPT/HCPCS: 94618

== ENCOUNTER 2023-02-01 12:38 | Outpatient (CLI) | payer MEDICARE, OTHER, SELFPAY ==
[2023-02-01 13:06] LABS: Basophils Percent Auto 0.2 % (0.2-1.2); Eosinophils Absolute Auto 0.4 K/mm3 (0-0.3); Eosinophils Percent Auto 7.8 % (0-4.4); Hematocrit 38.6 % (37.0-47.0); Hemoglobin 11.9 g/dL (12.0-15.0); Immature Granulocyte Absolute 0.01 K/mm3 (0.00-0.031); Immature Granulocyte Percent A 0.2 % (0-0.5); Lymphocytes Absolute Auto 0.49 K/mm3 (0.9-3.2); Lymphocytes Percent Auto 9.1 % (18.3-44.2); Mean Corpuscular HGB Conc 30.8 g/dl (32-36); Mean Corpuscular Volume 90.8 fl (80-100); Monocytes Absolute Auto 0.5 K/mm3 (0.1-0.6); Monocytes Percent Auto 9.7 % (2.6-8.5); Neutrophils Absolute Auto 3.9 K/mm3 (1.3-6.7); Platelet Count Result 202 k/mm3 (150-375); Red Blood Count 4.25 M/mm3 (4.2-5.4); Red Cell Distribution Width 13.4 % (11.5-14.5); White Blood Count 5.4 K/mm3 (4.5-10.0)
[2023-02-01 13:22] LABS: Alanine Aminotransferase 17 U/L (6-35); Alkaline Phosphatase 74 U/L (38-126); Anion Gap 6 mmol/L (8-16); Aspartate Amino Transferase 22 U/L (14-36); Bilirubin,Total 0.4 mg/dL (0.2-1.3); Blood Urea Nitrogen 22 mg/dL (7-17); Calcium 8.8 mg/dL (8.4-10.2); Carbon Dioxide 28 mmol/L (22-30); Chloride 106 mmol/L (98-107); Cholesterol 200 mg/dL (0-200); Estimated Glomerular Filt Rate 43; Glucose 98 mg/dL (65-110); HDL Direct 53 mg/dL; Potassium 4.2 mmol/L (3.4-5.0); Sodium 140 mmol/L (137-145); Triglycerides 174 mg/dL (<150)
[2023-02-01 13:33] LABS: LDL Cholesterol Direct 94 mg/dL
== END 2023-02-01 12:39 | disposition home or self-care (01) ==
LOC: ANHLAB 12:40
PROVIDERS: PCP Family Medicine; Visit Provider Family Medicine
DX: E78.2 Mixed hyperlipidemia (principal); N18.30 Chronic kidney disease, stage 3 unspecified; R53.83 Other fatigue
CPT/HCPCS: 36415; 80053; 80061; 84443; 85025

== ENCOUNTER 2023-02-12 13:41 | Outpatient (CLI) | payer MEDICARE, OTHER, SELFPAY ==
--- NOTE | ~2023-02-12 | US_ITS ---
EXAMINATION:US venous doppler LE RT INDICATION:Leg edema TECHNIQUE: Multiple grayscale, color flow and Doppler images of the right lower extremity deep venous systems were obtained and reviewed. COMPARISON:Ultrasound dated 01/16/2018 FINDINGS: The common femoral, superficial femoral and popliteal veins demonstrate normal respiratory variation, augmentation and compressibility. Color flow is also seen within the posterior tibial, pe roneal, greater saphenous and profunda veins. IMPRESSION: 1: No lower extremity deep venous thrombosis. Reviewed, dictated and finalized at location A.
== END 2023-02-12 13:42 | disposition home or self-care (01) ==
PROVIDERS: PCP Family Medicine; Visit Provider Physician Assistant Medical
DX: R58 Hemorrhage, not elsewhere classified (principal); R60.9 Edema, unspecified
CPT/HCPCS: 93971

== ENCOUNTER 2023-05-01 10:49 | Outpatient (CLI) | payer MEDICARE, OTHER, SELFPAY ==
--- NOTE | ~2023-05-01 | MM_ITS ---
EXAMINATION: MM screening marisela BI w cynthia HISTORY: Screening mammogram TECHNIQUE: Craniocaudal and mediolateral oblique 3-D tomosynthesis images were obtained and synthetic 2-D images were generated. CAD analysis was submitted and interpreted. COMPARISON: 02/16/2022, 11/20/2020, 11/13/2019 BREAST PARENCHYMAL COMPOSITION:There are scattered areas of fibroglandular density. FINDINGS: No suspicious mass, calcification, or architectural distortion are identified in either javier ast to suggest malignancy. There has been no suspicious interval change. IMPRESSION: No mammographic evidence of malignancy. Recommend routine screening mammography in one year. BI-RADS Category 1: Negative Reviewed, dictated and finalized at location .
== END 2023-05-01 10:50 | disposition home or self-care (01) ==
PROVIDERS: PCP Family Medicine; Visit Provider Obstetrics & Gynecology Gynecology
DX: Z12.31 Encounter for screening mammogram for malignant neoplasm of breast (principal)
CPT/HCPCS: 77063; 77067

== ENCOUNTER 2023-09-07 12:49 | Outpatient (CLI) | payer MEDICARE, OTHER, SELFPAY ==
[2023-09-07 13:22] LABS: Alanine Aminotransferase 17 U/L (6-35); Albumin Level 4.1 g/dL (3.5-5.1); Alkaline Phosphatase 71 U/L (38-126); Anion Gap 8 mmol/L (8-16); Aspartate Amino Transferase 31 U/L (14-36); Bilirubin,Total 0.4 mg/dL (0.2-1.3); Blood Urea Nitrogen 21 mg/dL (7-17); Calcium 9.8 mg/dL (8.4-10.2); Carbon Dioxide 23 mmol/L (22-30); Chloride 110 mmol/L (98-107); Cholesterol 206 mg/dL (0-200); Estimated Glomerular Filt Rate 48; Glucose 85 mg/dL (65-110); HDL Direct 69 mg/dL; Potassium 4.3 mmol/L (3.4-5.0); Sodium 141 mmol/L (137-145); Triglycerides 168 mg/dL (<150)
[2023-09-07 13:29] LABS: Basophils Percent Auto 0.5 % (0.2-1.2); Eosinophils Absolute Auto 0.4 K/mm3 (0-0.3); Eosinophils Percent Auto 5.8 % (0-4.4); Hematocrit 39.8 % (37.0-47.0); Hemoglobin 12.3 g/dL (12.0-15.0); Immature Granulocyte Absolute 0.02 K/mm3 (0.00-0.031); Immature Granulocyte Percent A 0.3 % (0-0.5); Lymphocytes Absolute Auto 0.59 K/mm3 (0.9-3.2); Lymphocytes Percent Auto 9.5 % (18.3-44.2); Mean Corpuscular HGB Conc 30.9 g/dl (32-36); Mean Corpuscular Hemoglobin 28.4 pg (26-34); Mean Corpuscular Volume 91.9 fl (80-100); Mean Platelet Volume 10.7 fl (7.4-10.4); Monocytes Absolute Auto 0.5 K/mm3 (0.1-0.6); Monocytes Percent Auto 8.6 % (2.6-8.5); Neutrophils Absolute Auto 4.7 K/mm3 (1.3-6.7); Neutrophils Percent Auto 75.3 % (45.5-73.1); Platelet Count Result 217 k/mm3 (150-375); Red Blood Count 4.33 M/mm3 (4.2-5.4); Red Cell Distribution Width 13.2 % (11.5-14.5); White Blood Count 6.2 K/mm3 (4.5-10.0)
[2023-09-07 13:32] LABS: LDL Cholesterol Direct 83 mg/dL
== END 2023-09-07 12:50 | disposition home or self-care (01) ==
LOC: ANHLAB 12:52
PROVIDERS: PCP Family Medicine; Visit Provider Internal Medicine Hematology & Oncology
DX: D64.9 Anemia, unspecified (principal); E78.2 Mixed hyperlipidemia; I10 Essential (primary) hypertension
CPT/HCPCS: 36415; 80053; 80061; 85025

== ENCOUNTER 2023-11-23 13:09 | Outpatient (CLI) | payer MEDICARE, OTHER, SELFPAY | END 2023-11-23 13:10 | disposition home or self-care (01) | LOC: ANHLAB 13:11 | PROVIDERS: PCP Family Medicine; Visit Provider Obstetrics & Gynecology Gynecology | DX: E55.9 Vitamin D deficiency, unspecified (principal) | CPT/HCPCS: 36415; 82306 ==

== ENCOUNTER 2023-11-26 13:06 | Emergency (ER) | payer MEDICARE, OTHER, SELFPAY ==
[2023-11-26] VITALS (9 sets, daily range): BP systolic 118–141; BP diastolic 56–97; PULSE 94–115; RESP 20–24; TEMP 36.3; O2SAT 96–100
--- NOTE | ~2023-11-26 | XR_ITS ---
EXAMINATION: XR chest 2V DATE: 11/26/2023 16:47 INDICATION: Shortest of breath. Wheezing. TECHNIQUE: Frontal and lateral views of the chest were obtained. COMPARISON: Chest 2 views 07/18/2022 FINDINGS: The lungs are hyperexpanded with lucencies, consistent with emphysema. No pleural effusion or pneumothorax. The heart size is normal. IMPRESSION: 1. Severe emphysema. Reviewed, dictated and finalized at location A. IMPRESSION: 1. Severe emphysema.
--- NOTE | 2023-11-26 16:04 | ED.SOB ---
HPI - SOB/Dyspnea General Chief Complaint: Shortness of Breath/Dyspnea <Randall Honeycutt APRN - Last Filed: 11/26/23 16:12> Stated Complaint: SOB <Randall Honeycutt APRN - Last Filed: 11/26/23 16:12> Time Seen by Provider: 11/26/23 16:05 <Randall Honeycutt APRN - Last Filed: 11/26/23 16:12> Focused HPI: Shawanda is a an 83-year-old female patient presenting to the ER today with complaints of shortness of breath since last night. She reports that she is bringing up some dark brown phlegm. Denies any fever or chills. Is on home O2 at 2 L via nasal cannula. History of COPD GENERAL: Well-appearing, well-nourished, and in no acute distress. HEAD: Normocephalic, atraumatic. CHEST: Lung sounds tight, diminished in the bases, with expiratory wheezing HEART: Regular rate and rhythm. NEURO: Alert and oriented x3. Patient screened in triage and initial orders placed. Additional care and disposition to be based upon diagnostic testing and treatment. <Randall Honeycutt APRN - Last Filed: 11/26/23 16:12> Source: patient <Randall Honeycutt APRN - Last Filed: 11/26/23 16:12> Mode of arrival: ambulatory <Randall Honeycutt APRN - Last Filed: 11/26/23 16:12> Limitations: no limitations <Randall Honeycutt APRN - Last Filed: 11/26/23 16:12> History of Present Illness HPI Narrative: Reports increased dyspnea - worse with exertion, cough since Sunday. Denies sick contacts, fevers, CP, BLE pain/swelling. States her portable home O2 has been out. Has been using her inhalers at home. Sees Dr. Pond's PA with Pulmonology. <Pao Leiva PA-C - Last Filed: 11/27/23 00:15> Related Data Home Medications: Home Medications Medication Instructions Recorded Confirmed lactobacillus combination no.4 3 3,000 mmu cells PO DAILY 03/02/21 11/22/23 billion cell capsule (Probiotic) multivitamin with minerals 1 tablet PO DAILY 03/02/21 11/22/23 (Hair,Skin and Nails tablet) aspirin 81 mg tablet,delayed 81 mg PO DAILY 01/30/23 11/22/23 release biotin 10,000 mcg chewable tablet 10,000 mcg PO BID 01/30/23 11/22/23 (Hair, Skin and Nails (biotin)) psyllium husk 0.4 gram capsule 0.4 g PO DAILY 01/30/23 11/22/23 (Daily Fiber) <Randall Honeycutt APRN - Last Filed: 11/26/23 16:12> Allergies/Adverse Reactions: Allergies Allergy/AdvReac Type Severity Reaction Status Date / Time amoxicillin Allergy Unknown Gastrointestinal Verified 11/22/23 10:29 Upset cefdinir Allergy Unknown Gastrointestinal Verified 11/22/23 10:29 Upset fosinopril Allergy Unknown Gastrointestinal Verified 11/22/23 10:29 Upset Sulfa (Sulfonamide Allergy Unknown Gastrointestinal Verified 11/22/23 10:29 Antibiotics) Upset sulfamethizole Allergy Unknown Gastrointestinal Verified 11/22/23 10:29 Upset trimethoprim Allergy Unknown Gastrointestinal Verified 11/22/23 10:29 Upset promethazine AdvReac Severe Jittery Verified 11/22/23 10:29 <Randall Honeycutt APRN - Last Filed: 11/26/23 16:12> Review of Systems Review of Systems: CONSTITUTIONAL: Denies fever, chills, or sweats. ENT: Denies rhinorrhea, congestion, sore throat. CARDIOVASCULAR: Denies chest pain, palpitations, or edema. RESPIRATORY: See HPI. MUSCULOSKELETAL: Denies back pain, extremity pain, myalgia. 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
[2023-11-26] MEDS: IPRATROPIUM 0.5 MG/ALBUTEROL SULFATE 2.5 MG AMPUL.NEB 3 ML INHALATION (16:53)
--- NOTE | 2023-11-26 16:57 | ECG_ITS ---
SEE SCANNED COPY FOR CONFIRMED REPORT. MTDD
[2023-11-26 17:14] LABS: Hematocrit 39.9 % (37.0-47.0); Hemoglobin 12.2 g/dL (12.0-15.0); Mean Corpuscular HGB Conc 30.6 g/dl (32-36); Mean Corpuscular Volume 91.7 fl (80-100); Mean Platelet Volume 10.6 fl (7.4-10.4); Platelet Count Result 207 k/mm3 (150-375); Red Blood Count 4.35 M/mm3 (4.2-5.4); Red Cell Distribution Width 14.3 % (11.5-14.5); White Blood Count 14.9 K/mm3 (4.5-10.0)
[2023-11-26 17:26] LABS: Alanine Aminotransferase 14 U/L (6-35); Albumin Level 4.6 g/dL (3.5-5.1); Alkaline Phosphatase 76 U/L (38-126); Anion Gap 7 mmol/L (4-12); Aspartate Amino Transferase 20 U/L (14-36); Bilirubin,Total 1.1 mg/dL (0.2-1.3); Blood Urea Nitrogen 21 mg/dL (7-17); Calcium 9.6 mg/dL (8.4-10.2); Carbon Dioxide 27 mmol/L (22-30); Chloride 106 mmol/L (98-107); Estimated CRCL calculation 24 ml/min; Estimated Glomerular Filt Rate 36; Glucose 122 mg/dL (65-110); Sodium 140 mmol/L (137-145)
[2023-11-26] MEDS: IPRATROPIUM BR 0.02% INH SOLN 0.5 MG/2.5 ML VIAL 1.5 MG INHALATION (17:31)
[2023-11-26] MEDS: LEVALBUTEROL NEB 1.25 MG/3 ML 2.5 MG INHALATION (17:31)
[2023-11-26 17:38] LABS: NT Pro B Type Natriuretic Pept 661 pg/mL (19.9-100); Troponin I < 0.012 ng/mL (0.000-0.034)
[2023-11-26 17:47] LABS: Band Neutrophils Percent 3 % (0-6); Lymphocytes Absolute Manual 0.89 K/mm3 (1.1-4.5); Monocytes Absolute Manual 1.19 K/mm3 (0.1-0.90); Monocytes Percent Manual 8 % (3-9); Neutrophils Absolute Manual 12.81 K/mm3 (1.7-7.2); Neutrophils Percent Manual 83 % (46-73); Total Cells Counted 100
[2023-11-26 17:48] LABS: Hypochromasia 1+; Platelet Estimate Adequate (Adequate); Schistocytes None Seen
[2023-11-26 17:58] LABS: Influenza A QL RT-PCR Negative (Negative); Influenza B QL RT-PCR Negative (Negative); RSV RNA, RT-PCR Negative (Negative); SARS-CoV-2 RNA PCR Negative (Negative)
[2023-11-26] MEDS: methylPREDNISolone SOD SUCC 125 MG VIAL IV PUSH (18:03)
[2023-11-26] MEDS: SODIUM CHLORIDE 0.9% IV 1,000 ML 999 ML IV CONT (19:18)
[2023-11-26 19:27] LABS: D Dimer 0.59 ug/mL (<0.48)
[2023-11-26] MEDS: levoFLOXacin 500 MG TABLET 750 MG PO (21:35)
== END 2023-11-26 21:32 | disposition home or self-care (01) ==
PROVIDERS: Nurse Practitioner Family; Emergency Provider Physician Assistant; PCP Family Medicine
DX: J44.1 Chronic obstructive pulmonary disease with (acute) exacerbation (principal); J96.11 Chronic respiratory failure with hypoxia; Z99.81 Dependence on supplemental oxygen; Z20.822 Contact with and (suspected) exposure to COVID-19; J43.9 Emphysema, unspecified; I12.9 Hypertensive chronic kidney disease with stage 1 through stage 4 chronic kidney disease, or unspecified chronic kidney disease; N18.30 Chronic kidney disease, stage 3 unspecified; E78.2 Mixed hyperlipidemia; E55.9 Vitamin D deficiency, unspecified; G47.34 Idiopathic sleep related nonobstructive alveolar hypoventilation; M17.11 Unilateral primary osteoarthritis, right knee; F41.8 Other specified anxiety disorders; Z87.11 Personal history of peptic ulcer disease; Z87.442 Personal history of urinary calculi; Z87.891 Personal history of nicotine dependence; Z79.82 Long term (current) use of aspirin; R00.0 Tachycardia, unspecified
CPT/HCPCS: 36415; 71046; 80053; 83880; 84484; 85025; 85380; 87637; 93005; 94640; 96361; 96374; 99284; A9270; J2919; J7030

== ENCOUNTER 2024-01-01 12:20 | Outpatient (CLI) | payer MEDICARE, OTHER, SELFPAY ==
--- NOTE | ~2024-01-01 | CT_ITS ---
CT Scan of the Chest without Contrast: Clinical Indication: COPD, hypoxia Technique: Contiguous sections were acquired throughout the chest without intravenous contrast. Dose reduction technique was used on this scan by utilizing automated exposure control and iterative recon struction technique. The dose-length product (DLP) was 168.81 mGy-cm. COMPARISON: 03/17/2022 Findings: There is no evidence of any significant mediastinal, hilar or axillary lymphadenopathy. There are ext ensive atherosclerotic calcifications of the aorta and coronary arteries. There is no evidence of pleural or pericardial effusion. Severe emphysema present. Stable 4 mm groundglass nodule in the right lower lobe. Images through the upper abdomen reveal 9 mm stone probably in the left renal pelvis. Additional nono bstructing left renal stones are present. Impression: Severe emphysema. Stable 4 mm groundglass pulmonary nodule right middle lobe.. Left nephrolithiasis, as above. Reviewed, dictated and finalized at [facility]. Impression: Severe emphysema. Stable 4 mm groundglass pulmonary nodule right middle lobe.. Left nephrolithiasis, as above.
[2024-01-01 13:17] LABS: Alveolar/Arterial O2 Gradient 28.9 mmHg; Carboxyhemoglobin 0.3 % THb (0-2.0); Fractional Inspired Oxygen 21 %; HCO3 ABG 24.1 mEq/l (22.0-26.0); Oxygen Content ABG 15.5 %vol (16.0-22.0); PCO2 ABG 41.8 mmHg (35.0-45.0); PO2 ABG 70.8 mmHg (80.0-100.0); PO2 FiO2 Ratio Arterial Blood 3.37 %; Reduced Hemoglobin 5.7 %THb (0-5.0); Total Hemoglobin 11.7 g/dL (12.0-18.0); pH ABG 7.379 (7.350-7.450)
[2024-01-01 13:19] LABS: Device ROOM AIR; Modified Allen's Test Pass
[2024-01-01 14:00] VITALS: PULSE 72; O2SAT 96
[2024-01-01 14:03] VITALS: PULSE 122; O2SAT 86
[2024-01-01 14:04] VITALS: PULSE 109; O2SAT 92
[2024-01-01 14:15] VITALS: PULSE 81; O2SAT 94
--- NOTE | 2024-01-01 14:44 | HOMEO2EVAL ---
Evaluation was performed at [facility] Home Oxygen Evaluation RC: Home Oxygen (O2) Evaluation Start: 01/01/24 14:42 Freq: Status: Active Protocol: RPE Activity Type Activity Date Activity User E-sign Co-sign Detail Recorded Client Recorded Date Recorded By Document 01/01/24 14:00 LANE [email or web address] 01/01/24 14:44 LANE Document 01/01/24 14:03 LANE [email or web address] 01/01/24 14:44 LANE Document 01/01/24 14:04 LANE [email or web address] 01/01/24 14:44 LANE Document 01/01/24 14:15 LANE [email or web address] 01/01/24 14:44 LANE 01/01/24 01/01/24 01/01/24 14:00 14:03 14:04 Home O2 Evaluation [Oxygen] -Test Phase Resting Exercise Exercise -Oxygen Delivery Room Air Room Air Nasal Cannula -Oxygen Flow Rate (L/min) 2 [Pulse Oximetry] -Pulse Oximetry (90-100 %) 96 86 L 92 [Pulse Rate] -Pulse Rate (60-100 beats/min) 72 122 H 109 H [Evaluation] -Activity Tolerance Good -Rating of Perceived Dyspnea (PD) +2 Mild, Some Difficulty, Noticeable to the Observer [Exercise] -Ambulation Distance (feet) 600 -Ambulation Distance (meters) 182.87 [Comments] -Home Oxygen Evaluation Comments PT REQUIRES 2 L HOME O2 WITH ACTIVITY [Charges] -Evaluation Charges O2 Evaluation by Pulmonary 01/01/24 14:15 Home O2 Evaluation [Oxygen] -Test Phase Resting -Oxygen Delivery Room Air -Oxygen Flow Rate (L/min) [Pulse Oximetry] -Pulse Oximetry (90-100 %) 94 [Pulse Rate] -Pulse Rate (60-100 beats/min) 81 [Evaluation] -Activity Tolerance -Rating of Perceived Dyspnea (PD) [Exercise] -Ambulation Distance (feet) -Ambulation Distance (meters) [Comments] -Home Oxygen Evaluation Comments [Charges] -Evaluation Charges
--- NOTE | 2024-01-01 16:05 | WPDPFTINT ---
PFT Procedure Performed PFT Procedure Performed Spirometry with Pre/Post Bronchodilator Plethysmography (Lung Vol) Diffusing Cap (DLCO) Flow Vol Loop PFT Interpretation This is a pulmonary function test with pre and post-bronchodilator spirometry, plethysmography, diffusing capacity and rest room air arterial blood gas. The test was performed and results interpreted in accordance with the 2019 and 2005 ATS/ERS Task Force guidelines respectively using the Global Lung Function Initiative-2012 reference equations. Patient demonstrated good effort and cooperation. Reproducibility criteria were met. The quality of the pre bronchodilator spirometry maneuver was Grade A and post bronchodilator spirometry maneuver was Grade B. Findings: Spirometry: There is decreased maximal expiratory airflow at all lung volumes with a concave expiratory flow tracing. The contour the inspiratory flow tracing is normal. The pre bronchodilator FVC is 1.79 L, 71% predicted. The pre bronchodilator FEV1 is 0.66 L, 35% predicted. The pre bronchodilator FEV1: FVC ratio is 37%. The post bronchodilator FVC is 1.82 L, representing a 2% increase. The post bronchodilator FEV1 is 0.70 L, representing a 5% increase. The post bronchodilator FEV1: FVC ratio is 38%. Plethysmography: The total lung capacity is 5.77 L, 114% predicted. The functional residual capacity is 4.57 L, 156% predicted. The residual volume is 3.93 L, 163% predicted. The residual volume: Total lung capacity ratio is 68%. Diffusing capacity: The diffusing capacity unadjusted for hemoglobin and carboxyhemoglobin is 6.6, 34% predicted. The diffusing capacity adjusted for alveolar volume is 2.70, 66% predicted. Rest room air arterial blood gas: PH 7.38, PaCO2 42, PaO2 71. In comparison to previous pulmonary function testing on 11/01/2017 the post bronchodilator FVC is unchanged from 1.75 L to 1.82 L. The post bronchodilator FEV1 is decreased from 0.90 L to 0.70 L. The total lung capacity is unchanged from 5.60 L to 5.77 L. The functional residual capacity is unchanged from 4.39 L to 4.57 L. The residual volume is unchanged from 3.47 L to 3.93 L. The residual volume: Total lung capacity ratio is unchanged from 62% to 68%. The diffusing capacity unadjusted for hemoglobin and carboxyhemoglobin is decreased from 8.8 to 6.6. The diffusing capacity adjusted for alveolar volume is unchanged from 2.72 to 2.70. Impression: There is a severe obstructive abnormality. There is no significant improvement after inhaling a single dose of albuterol. The increase in residual volume to total lung volume ratio is consistent with hyperinflation from an obstructive abnormality. The diffusing capacity unadjusted for hemoglobin and carboxyhemoglobin is severely decreased and remains mildly decreased when adjusted for alveolar volume. Rest room air arterial blood gas demonstrates a normal pH, PaCO2, and PaO2 when adjusted for patient's age. In comparison to previous pulmonary function testing on 11/01/2017 there has been a greater than anticipated time dependent decrease in the FEV1 and diffusing capacity unadjusted for hemoglobin and carboxyhemoglobin with no significant change in the FVC, total lung capacity, functional residual capacity, residual volume and diffusing capacity adjusted for alveolar volume. Clinical correlation is recommended.
== END 2024-01-01 12:21 | disposition home or self-care (01) ==
LOC: ANHPFT 12:21
PROVIDERS: PCP Family Medicine; Visit Provider Physician Assistant
DX: J44.9 Chronic obstructive pulmonary disease, unspecified (principal); R09.02 Hypoxemia; G47.34 Idiopathic sleep related nonobstructive alveolar hypoventilation; R94.2 Abnormal results of pulmonary function studies; J43.9 Emphysema, unspecified; R91.1 Solitary pulmonary nodule; N20.0 Calculus of kidney
CPT/HCPCS: 36600; 71250; 82375; 82805; 83050; 94060; 94618; 94726; 94729

== ENCOUNTER 2024-01-14 08:25 | Outpatient (CLI) | payer MEDICARE, OTHER, SELFPAY ==
--- NOTE | ~2024-01-14 | NM_ITS ---
EXAMINATION: NM carolynn stress w perfusion DATE: 01/14/2024 10:28 INDICATION: Other forms of dyspnea. TECHNIQUE: Rest images were obtained following intravenous administration of 10.9 mCi Tc99m tetrofosm in (Myoview). The patient was infused intravenously with Lexiscan (Regadenoson). Then, 34 mCi Tc99m t etrofosmin (Myoview) was administered intravenously, and stress images were obtained. Data was recons tructed into short axis and horizontal and vertical long axis SPECT images. Gated SPECT images were a lso obtained. COMPARISON: None. FINDINGS: There is no definite reversible or fixed perfusion abnormality to suggest ischemia or infar ction. There is normal left ventricular chamber size, wall motion and ejection fraction. Left ventr icular ejection fraction measures >70%. IMPRESSION: 1. Normal myocardial perfusion during stress. 2. Left ventricular ejection fraction measuring >70%. Reviewed, dictated and finalized at location B.
--- NOTE | 2024-01-14 08:49 | EST_ITS ---
Patient Info Name: Elisabet Quan Age: 83 years : 1940 Gender: Female Ht: 64 in Wt: 135 lbs BSA: 1.67 m2 HR: 70 bpm BP: 148 / 66 mmHg Exam Date: 01/14/2024 9:22 AM Exam Location: Echo Lab Patient Status: Outpatient Admit Date: 01/14/2024 Staff Ordering Physician: Mae Alves PA-C Attending Provider: Mae Alves PA-C Exercise Technologist: Shikha Bustillos RDCS Exercise Physician: Gigi Capellan DO Exam Type: CA stress carolynn w NM Study Info A regadenoson stress test was performed. Summary 1. 1. Negative lexiscan stress test for ischemic ST changes by ECG criteria. 2. 2. Baseline hypertension. 3. 3. Nuclear scan to follow and will be reported separately. Please correlate with it. 4. 4. Patient informed of the above results. Protocol: Lexiscan Stress ECG Details Stage: REST Duration (min): 1 min : 33 sec HR (bpm): 71 SBP (mmHg): 148 DBP (mmHg): 66 Stage: REST Duration (min): 13 min : 9 sec HR (bpm): 72 SBP (mmHg): 148 DBP (mmHg): 66 Stage: STAGE 1 Duration (min): 0 min : 59 sec HR (bpm): 91 SBP (mmHg): 154 DBP (mmHg): 70 Stage: RECOVERY Duration (min): 1 min : 0 sec HR (bpm): 105 SBP (mmHg): 154 DBP (mmHg): 70 Stage: RECOVERY Duration (min): 2 min : 0 sec HR (bpm): 104 SBP (mmHg): 154 DBP (mmHg): 70 Stage: RECOVERY Duration (min): 3 min : 0 sec HR (bpm): 102 SBP (mmHg): 163 DBP (mmHg): 63 Stage: RECOVERY Duration (min): 3 min : 13 sec HR (bpm): 104 SBP (mmHg): 163 DBP (mmHg): 63 Rest HR: 72 bpm Peak HR: 108 bpm Rest Sys BP: 148 mmHg Peak Sys BP: 163 mmHg Max Pred HR: 139 bpm % Max Pred HR: 78 % Target HR: 118 bpm Max RPP: 17,604 bpm*mmHg Termination Reason: Completed protocol Cardiac Symptoms: Shortness of breath Total Time: 1 min : 0 sec Rest Jurado BP: 66 mmHg Peak Jurado BP: 63 mmHg Total Dose: 0.4 mg Resting ECG Sinus rhythm. Stress ECG No ST changes. Arrhythmias None. Report Signatures
== END 2024-01-14 08:26 | disposition home or self-care (01) ==
PROVIDERS: PCP Family Medicine; Visit Provider Physician Assistant
DX: R06.09 Other forms of dyspnea (principal); J44.9 Chronic obstructive pulmonary disease, unspecified; R09.02 Hypoxemia; I10 Essential (primary) hypertension
CPT/HCPCS: 78452; 93017; A9502; J2785

== ENCOUNTER 2024-04-11 12:02 | Outpatient (CLI) | payer MEDICARE, OTHER, SELFPAY ==
[2024-04-11 12:34] LABS: Basophils Percent Auto 0.4 % (0.2-1.2); Eosinophils Absolute Auto 0.3 K/mm3 (0-0.3); Hematocrit 39.7 % (37.0-47.0); Hemoglobin 12.4 g/dL (12.0-15.0); Immature Granulocyte Absolute 0.03 K/mm3 (0.00-0.031); Immature Granulocyte Percent A 0.5 % (0-0.5); Lymphocytes Absolute Auto 0.66 K/mm3 (0.9-3.2); Lymphocytes Percent Auto 11.7 % (18.3-44.2); Mean Corpuscular HGB Conc 31.2 g/dl (32-36); Mean Corpuscular Hemoglobin 28.3 pg (26-34); Mean Corpuscular Volume 90.6 fl (80-100); Mean Platelet Volume 10.5 fl (7.4-10.4); Monocytes Absolute Auto 0.5 K/mm3 (0.1-0.6); Monocytes Percent Auto 8.8 % (2.6-8.5); Neutrophils Absolute Auto 4.2 K/mm3 (1.3-6.7); Neutrophils Percent Auto 73.6 % (45.5-73.1); Platelet Count Result 254 k/mm3 (150-375); Red Blood Count 4.38 M/mm3 (4.2-5.4); Red Cell Distribution Width 12.6 % (11.5-14.5); White Blood Count 5.7 K/mm3 (4.5-10.0)
[2024-04-11 12:46] LABS: Alanine Aminotransferase 16 U/L (6-35); Albumin Level 4.1 g/dL (3.5-5.1); Alkaline Phosphatase 74 U/L (38-126); Anion Gap 7 mmol/L (4-12); Aspartate Amino Transferase 22 U/L (14-36); Bilirubin,Total 0.5 mg/dL (0.2-1.3); Blood Urea Nitrogen 24 mg/dL (7-17); Calcium 9.9 mg/dL (8.4-10.2); Carbon Dioxide 29 mmol/L (22-30); Chloride 103 mmol/L (98-107); Cholesterol 190 mg/dL (0-200); Estimated Glomerular Filt Rate 43; Glucose 105 mg/dL (65-110); HDL Direct 67 mg/dL; Potassium 4.8 mmol/L (3.4-5.0); Sodium 139 mmol/L (137-145); Triglycerides 188 mg/dL (<150)
[2024-04-11 12:57] LABS: LDL Cholesterol Direct 80 mg/dL
[2024-04-11 13:25] LABS: Vitamin D 25 Hydroxy 79.1 ng/mL
== END 2024-04-11 12:03 | disposition home or self-care (01) ==
LOC: ANHLAB 12:08
PROVIDERS: PCP Family Medicine; Visit Provider Family Medicine
DX: R53.83 Other fatigue (principal); E55.9 Vitamin D deficiency, unspecified; E78.2 Mixed hyperlipidemia; N18.30 Chronic kidney disease, stage 3 unspecified; E11.9 Type 2 diabetes mellitus without complications
CPT/HCPCS: 36415; 80053; 80061; 82306; 84443; 85025

== ENCOUNTER 2024-05-09 14:59 | Outpatient (CLI) | payer MEDICARE, OTHER, SELFPAY ==
--- NOTE | ~2024-05-09 | MM_ITS ---
EXAMINATION: MM screening marisela BI w cynthia HISTORY: Screening TECHNIQUE: Craniocaudal and mediolateral oblique 3-D tomosynthesis images were obtained and synthetic 2-D images were generated. CAD analysis was submitted and interpreted. COMPARISON: Comparison to multiple prior studies sequentially, with oldest reviewed study dated 09/06. BREAST PARENCHYMAL COMPOSITION: Not dense: There are scattered areas of fibroglandular density. FINDINGS: There is no evidence of suspicious mass, calcification, or architectural distortion to sugg est malignancy in either breast. There has been no suspicious interval change. IMPRESSION: 1. No mammographic evidence of malignancy. 2. Recommend routine screening mammography in one year. BI-RADS Category 1: Negative Reviewed, dictated and finalized at location B.
== END 2024-05-09 15:00 | disposition home or self-care (01) ==
LOC: ANHIMG 15:00
PROVIDERS: PCP Family Medicine; Visit Provider Obstetrics & Gynecology Gynecology
DX: Z12.31 Encounter for screening mammogram for malignant neoplasm of breast (principal)
CPT/HCPCS: 77063; 77067

== ENCOUNTER 2024-05-15 14:45 | Outpatient (RCR) | payer MEDICARE, OTHER, SELFPAY ==
[2024-01-22 15:20] VITALS: BP 152/54; PULSE 84; RESP 18; O2SAT 97
[2024-01-22 15:47] VITALS: PULSE 87
== END 2024-05-15 23:59 | disposition home or self-care (01) ==
LOC: ANHCPREHAB 14:45
PROVIDERS: PCP Family Medicine; Visit Provider Internal Medicine Critical Care Medicine
DX: J44.9 Chronic obstructive pulmonary disease, unspecified (principal)
CPT/HCPCS: 94625

== ENCOUNTER 2024-05-19 14:06 | Outpatient (RCR) | payer MEDICARE, OTHER, SELFPAY | END 2024-09-01 07:30 | disposition home or self-care (01) | LOC: ANHCPREHAB 14:06 | PROVIDERS: PCP Family Medicine; Visit Provider Internal Medicine Critical Care Medicine | DX: J44.9 Chronic obstructive pulmonary disease, unspecified (principal) | CPT/HCPCS: 94625 ==

== ENCOUNTER 2024-05-23 13:01 | Outpatient (CLI) | payer MEDICARE, OTHER, SELFPAY ==
--- NOTE | ~2024-05-23 | XR_ITS ---
Clinical Indication: COPD PA and lateral views of the chest: Comparison: 11/26/2023 Findings: The lungs are clear, without evidence of focal consolidation or pleural effusion. Stable CO PD pattern. Cardiomediastinal silhouette is stable.. Bones and soft tissues are unremarkable. Impression: COPD. Possible endobronchial valves now present in the right perihilar region. Otherwise clear lungs. Reviewed, dictated and finalized at location . Impression: COPD. Possible endobronchial valves now present in the right perihilar region. Otherwise clear lungs.
== END 2024-05-23 13:02 | disposition home or self-care (01) ==
PROVIDERS: PCP Family Medicine; Visit Provider Physician Assistant
DX: J44.9 Chronic obstructive pulmonary disease, unspecified (principal)
CPT/HCPCS: 71046; 94618

== ENCOUNTER 2024-06-09 08:06 | Outpatient (CLI) | payer MEDICARE, OTHER, SELFPAY ==
--- NOTE | 2024-06-09 11:25 | WPDPFTINT ---
PFT Procedure Performed PFT Procedure Performed Spirometry with Pre/Post Bronchodilator Plethysmography (Lung Vol) Diffusing Cap (DLCO) Flow Vol Loop PFT Interpretation This is a pulmonary function test with pre and post-bronchodilator spirometry, plethysmography and diffusing capacity. The test was performed and results interpreted in accordance with the 2019 and 2005 ATS/ERS Task Force guidelines respectively using the Global Lung Function Initiative-2012 reference equations. Patient demonstrated good effort and cooperation. Reproducibility criteria were met. The quality of the pre bronchodilator spirometry maneuver was Grade A and post bronchodilator spirometry maneuver was Grade A. Findings: Spirometry: There is decreased maximal expiratory airflow at all lung volumes with concave expiratory flow tracing. The contour the inspiratory flow tracing is normal. The pre bronchodilator FVC is 2.05 L, 81% predicted. The pre bronchodilator FEV1 is 0.71 L, 37% predicted. The pre bronchodilator FEV1: FVC ratio is 34%. The post bronchodilator FVC is 2.32 L, representing a 14 % increase. The post bronchodilator FEV1 is 0.86 L, representing a 22% increase. The post bronchodilator FEV1: FVC ratio is 37%. plethysmography: The total lung capacity is 5.29 L, 104% predicted. The functional residual capacity is 3.93 L, 134% predicted. The residual volume is 3.10 L, 128% predicted. Diffusing capacity: The diffusing capacity unadjusted for hemoglobin and carboxyhemoglobin is 6.7, 35% predicted. The diffusing capacity adjusted for alveolar volume is 2.39, 58% predicted. In comparison to previous pulmonary function testing on 01/01/2024 the post bronchodilator FVC has increased from 1.82 L to 2.32 L. The post bronchodilator FEV1 has increased from 0.70 L to 0.86 L. The total lung capacity is unchanged from 5.77 L to 5.29 L. The functional residual capacity is unchanged from 4.57 L to 3.93 L. The residual volume is decreased from 3.93 L to 3.10 L. The diffusing capacity unadjusted for hemoglobin and carboxyhemoglobin is unchanged from 6.6 to 6.7. The diffusing capacity adjusted for alveolar volume is unchanged from 2.70 to 2.39. Impression: There is a severe obstructive abnormality. There is significant improvement after inhaling a single dose of albuterol. The lung volumes are normal. The diffusing capacity unadjusted for hemoglobin and carboxyhemoglobin is severely decreased and remains moderately decreased when adjusted for alveolar volume. In comparison to previous pulmonary function testing on 01/01/2024 there has been a greater than anticipated time dependent increase in the FVC and FEV1 with a greater than anticipated time dependent decrease in the residual volume. There has been no significant change in the total lung capacity, functional residual capacity or diffusing capacity. Clinical correlation is recommended.
== END 2024-06-09 08:07 | disposition home or self-care (01) ==
LOC: ANHPFT 08:08
PROVIDERS: PCP Family Medicine; Visit Provider Physician Assistant
DX: R94.2 Abnormal results of pulmonary function studies (principal); J44.9 Chronic obstructive pulmonary disease, unspecified
CPT/HCPCS: 94060; 94726; 94729

== ENCOUNTER 2024-08-13 14:05 | Outpatient (CLI) | payer MEDICARE, OTHER, SELFPAY ==
[2024-08-13 14:35] LABS: Basophils Percent Auto 0.4 % (0.2-1.2); Eosinophils Absolute Auto 0.2 K/mm3 (0-0.3); Eosinophils Percent Auto 3.2 % (0-4.4); Hematocrit 36.8 % (37.0-47.0); Hemoglobin 11.4 g/dL (12.0-15.0); Immature Granulocyte Absolute 0.03 K/mm3 (0.00-0.031); Immature Granulocyte Percent A 0.6 % (0-0.5); Lymphocytes Absolute Auto 0.63 K/mm3 (0.9-3.2); Lymphocytes Percent Auto 12.7 % (18.3-44.2); Mean Corpuscular Hemoglobin 28.2 pg (26-34); Mean Corpuscular Volume 91.1 fl (80-100); Mean Platelet Volume 10.1 fl (7.4-10.4); Monocytes Absolute Auto 0.4 K/mm3 (0.1-0.6); Monocytes Percent Auto 8.3 % (2.6-8.5); Neutrophils Absolute Auto 3.7 K/mm3 (1.3-6.7); Neutrophils Percent Auto 74.8 % (45.5-73.1); Platelet Count Result 233 k/mm3 (150-375); Red Blood Count 4.04 M/mm3 (4.2-5.4); Red Cell Distribution Width 13.2 % (11.5-14.5)
[2024-08-13 14:51] LABS: Alanine Aminotransferase 16 U/L (6-35); Albumin Level 3.7 g/dL (3.5-5.1); Alkaline Phosphatase 107 U/L (38-126); Anion Gap 11 mmol/L (4-12); Aspartate Amino Transferase 21 U/L (14-36); Bilirubin,Total 0.4 mg/dL (0.2-1.3); Blood Urea Nitrogen 22 mg/dL (7-17); Calcium 8.9 mg/dL (8.4-10.2); Carbon Dioxide 27 mmol/L (22-30); Chloride 105 mmol/L (98-107); Cholesterol 175 mg/dL (0-200); Estimated Glomerular Filt Rate 40; Glucose 114 mg/dL (65-110); HDL Direct 61 mg/dL; Potassium 4.4 mmol/L (3.4-5.0); Sodium 143 mmol/L (137-145); Triglycerides 232 mg/dL (<150)
[2024-08-13 15:03] LABS: LDL Cholesterol Direct 70 mg/dL
[2024-08-13 16:39] LABS: Vitamin D 25 Hydroxy 81.3 ng/mL
[2024-08-13 16:53] LABS: Thyroid Stimulating Hormone Reflex 0.807 uIU/mL (0.465-4.68)
--- OUTSIDE RECORDS SUMMARY | 2024-08-15 01:49 | XMS_ITS | Clinical Summary ---
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 4 Active omeprazole (PriLOSEC) 40 mg Capsule, Delayed Release(E.C.) Take 40 mg by mouth daily. 4 Active mupirocin calcium (BACTROBAN) 2 % Cream Apply to affected area 3 times daily. 4 Active losartan (COZAAR) 100 mg tablet Take 100 mg by mouth daily. 4 Active DULoxetine (CYMBALTA) 20 mg Capsule, Delayed Release(E.C.) Take 20 mg by mouth 2 times daily. 4 Active budesonide (PULMICORT RESPULE) 0.5 mg/2 mL Suspension for Nebulization Take 0.5 mg by inhalation 2 times daily. 4 Active arformoteroL (Brovana) 15 mcg/2 mL Solution for Nebulization Take 15 mcg by inhalation 2 times daily. 4 Active aMILoride-hydroCH LOROthiazide (MODURETIC) 5-50 mg Tablet Take 1 Tablet by mouth daily. 4 Active albuterol (PROVENTIL,VENTOL IN) 2.5 mg /3 mL (0.083 %) Solution for Nebulization Take 2.5 mg by inhalation every 4 hours. Active clobetasoL (TEMOVATE) 0.05 % Cream Apply to affected area 2 times daily. Active HYDROcodone-aceta minophen 2.5-325 mg Tablet Take 1 Tablet by mouth every 4 hours as needed for Pain. Active fluticasone propionate (FLONASE) 50 mcg/spray [place], Suspension nasal inhaler Administer 2 Sprays in each nostril daily. Active Active Problems Problem Noted Date Diagnosed Date Anxiety 05/03/2024 COPD (chronic obstructive pulmonary disease) 01/2024 Encounters Date Type Department Care Team Description 08/14/2024 External Device Data [facility] Provider, Abstract 08/12/2024 External Device Data [facility] Provider, Abstract 08/05/2024 External Device Data [facility] Provider, Abstract 06/09/[address] [facility] [place] [address] [place] [address] Provider, Abstract 06/07/[address] [facility] [place] [address] [place] [address] Provider, Abstract from Last 3 Months Social History Tobacco Use Types Packs/Day Years Used Date Smoking Tobacco: Former Cigarettes 2 45 1 963 - 2008 Tobacco Cessation:Counseling Given: Not Answered Comments Unknown Sex and Gender Information Value Date Recorded Sex Assigned at Not on file Legal Sex Female 10:08 AM CDT Gender Identity Not on file Sexual Orientation Not on file Last Filed Vital Signs Vital Sign Reading Time Taken Comments Blood Pressure 146/70 05/07/2024 3:36 PM CDT Pulse 88 05/07/2024 3:36 PM CDT Temperature - - Respiratory Rate 20 05/07/2024 3:36 PM CDT Oxygen Saturation 95% 05/07/2024 3:36 PM CDT Inhaled Oxygen Concentration - - Weight 61.9 kg (136 lb 7.4 oz) 05/07/2024 3:36 P M CDT Height 162.6 cm (5' 4 ) 05/07/2024 3:36 PM CDT Body Mass Index 23.42 05/07/2024 3:36 PM CDT Plan of Treatment Health Maintenance Due Date Last Done Comments DTAP/TDAP/TD VACCINES (1 - Tdap) 1961 PNEUMOCOCCAL VACCINE 65+ YEARS (1 of 2 - PCV) 10/31/18 62 ZOSTER VACCINE (1 of 2) 1992 OSTEOPOROSIS SCREENING 11/01/2007 RSV VACCINE (60+ or ) (1 - 1-dose 75+ series) 2017 INFLUENZA VACCINE (#1) 2024 Insurance [employer]
--- OUTSIDE RECORDS SUMMARY | 2024-08-15 01:49 | XMS_ITS | Encounter Summary ---
Author Organization [facility] Address [address] [place] [address] Care Team Providers Care Cover Stripper Name Role Phone Kennedy Benson MD Primary Care Provider Nubia Bradford MD Primary Care Provider Encounter Details Date Type Department Care Team (Late st Contact Info) Description 01/03/2021 Telephone [facility] ([facility]) [address] [place] [address] Barbie Banks, RT Social History Tobacco Use Types Packs/Day Years Used Date Smoking Tobacco: Former Smokeless Tobacco: Former Alcohol Use Standard Drinks/Week Comments Yes 0 (1 standard drink = 0.6 oz pur e alcohol) Comments Unknown Sex and Gender Information Value Date Recorded Sex Assigned at Not on file Legal Sex Female 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
--- OUTSIDE RECORDS SUMMARY | 2024-08-15 01:49 | XMS_ITS | Encounter Summary ---
Author Organization [facility] Address [address] [place] [address] Care Team Providers Care Break Out Man Name Role Phone Unavailable Primary Care Provider Unavailabl e Encounter Details Date Type Department Care Team (Late st Contact Info) Description 08/12/2024 External Device Data [facility] Provider, Abstract NO ADDRESS ON FILE Social History Tobacco Use Types Packs/Day Years Used Date Smoking Tobacco: Former Cigarettes 2 45 1 963 - 2008 Comments Unknown Sex and Gender Information Value Date Recorded Sex Assigned at Not on file Legal Sex Female 10:08 AM CDT Gender Identity Not on file Sexual Orientation Not on file documented as of this encounter Plan of Treatment Not on file documented as of this encounter Visit Diagnoses Not on filedocumented in this encounter
--- OUTSIDE RECORDS SUMMARY | 2024-08-15 01:49 | XMS_ITS | Referral Summary ---
Author Organization [facility] Address [address] [place] [address] Care Team Providers Care Motor Rebuilder Name Role Phone Nubia Bradford MD Primary Care Provider [phone] Allergies Active Allergy Reactions Criticality Noted Date Comments Sulfa (Sulfonamide Antibiotics) Unknown 08/24 Medications aMILoride-hydroCHL OROthiazide (MODURETIC) 5-50 mg tablet TK 1 T PO QD 4 7 Active amoxicillin-clavul anate (AUGMENTIN) 875-125 mg per tablet TK 1 T PO Q 12 H 0 8 Active SYMBICORT 160-4.5 mcg/actuation inhaler INL 2 PUFFS PO BID 4 7 Active cephalexin (KEFLEX) 500 mg capsule TK 1 C PO BID 0 8 Active VIRTUSSIN AC 10-100 mg/5 mL liquid TK 1 TO 2 JOSE ROBERTO PO BID PRF COUGH 0 7 Active escitalopram (LEXAPRO) 20 mg tablet TK 1 T PO QD 4 7 Active FLUAD [id number], 65 YR UP,,PF, 45 mcg (15 mcg x 3)/0.5 mL syringe ADM 0.5ML IM UTD 0 8 Active HYDROcodone-acetam inophen (NORCO) 5-325 mg per tabletIndications: Pain TK 1 TO 2 TS PO BID PRN 0 7 Active levoFLOXacin (LEVAQUIN) 500 mg tablet TK 1 T PO QOD 0 8 Active losartan (COZAAR) 100 mg tablet TK 1 T PO QD 3 8 Active meloxicam (MOBIC) 15 mg tablet TK 1 T PO QD 3 8 Active MYRBETRIQ 50 mg tablet extended release 24 hr TK 1 T PO D 12 8 Active nitrofurantoin monohydrate (MACROBID) 100 mg capsule TK 1 C PO BID 0 7 Active ondansetron (ZOFRAN) 4 mg tablet TK 1 T PO Q 6 H PRF NAUSEA OR VOM 0 8 Active omeprazole (PriLOSEC) 20 mg capsule TK 1 C PO D 0 8 Active predniSONE (DELTASONE) 20 mg tablet 0 8 Active promethazine (PHENERGAN) 25 mg tablet TK 1 T PO Q 4 TO 6 H PRF NAUSEA 0 8 Active aspirin 81 mg chewable tablet Take 81 mg by mouth daily. Active traMADol (ULTRAM) 50 mg tablet Take 50 mg by mouth every 6 (six) hours as needed for pain. Active fish oil-dha-epa 1,200-144-216 mg capsule Take by mouth. Active multivitamin tabletIndications: Vitamin Deficiency Prevention Take 1 tablet by mouth. Active smvoxpdnvrq-I9-Iko wellia serr 1,500-400-100 mg-unit-mg tablet Take by mouth. Active cyanocobalamin, vitamin B-12, 1,000 mcg/mL kit Inject as directed. Active PROVENTIL HFA 90 mcg/actuation inhaler INHALE 2 PUFFS PO BID PRN 11 8 Active ergocalciferol (VITAMIN D) 50,000 unit capsule TK ONE C PO Q WEEK 4 8 Active PREVNAR 13, PF, 0.5 mL vaccine ADM 0.5ML IM UTD 0 8 Active chlorhexidine (PERIDEX) 0.12 % solution RINSE WITH 15 ML PO FOR 30 SECONDS AND SPIT OUT BID. THEN DO NOT EAT OR DRINK FOR 30 MINUTES. 0 8 Active ciprofloxacin (CIPRO) 250 mg tablet TK 1 T PO BID 0 8 Active FLUAD [id number], 65 YR UP,,PF, 45 mcg (15 mcg x 3)/0.5 mL syringe ADM 0.5ML IM UTD 0 8 Active ketoconazole (NIZORAL) 2 % cream JAMEE TOPICALLY TO SCALY AREAS ON NOSE AND FOREHEAD BID FOR 4 WKS 0 Active ketoconazole (NIZORAL) 2 % shampoo 10 9 Active gabapentin (NEURONTIN) 100 mg capsuleIndications :Lumbosacral radiculopathy Take 1 capsule (100 mg total) by mouth 3 (three) times a day 90 capsule 11 2 Active Active Problems No known active problems Social History Tobacco Use Types Packs/Day Years Used Date Smoking Tobacco: Former Smokeless Tobacco: Former Alcohol Use Standard Drinks/Week Comments Yes 0 (1 standard drink = 0.6 oz pur e alcohol) Personal Safety Answer Date Recorded Getting School Help Needed Not on file 09/19 Comments Unknown Sex and Gender Information Value Date Recorded Sex Assigned at Not on file Legal Sex Female 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 Gender Identity Not on file Sexual Orientation Not on file Last Filed Vital Signs Vital Sign Reading Time Taken Comments Blood Pressure 153/68 01/17/2022 1:26 PM CDT Pulse 77 01/17/2022 1:26 PM CDT Temperature - - Respiratory Rate 16 01/17/2022 1:26 PM CDT Oxygen Saturation - - Inhaled Oxygen Concentration - - Weight 61.2 kg (135 lb) 09/17/2018 3:27 PM DIRECTOR OF INFECTION CONTROL Height 162.6 cm (5' 4 ) 09/17/2018 3:27 PM DIRECTOR OF INFECTION CONTROL Body Mass Index 23.17 09/17/2018 3:27 PM DIRECTOR OF INFECTION CONTROL Plan of Treatment Not on file Insurance MEDICARE [employer] MEDICARE MEDICARE [employer] Care Teams Motor Rebuilder Relationship Specialty Start Date End Date Nubia Bradford MD PCP - General Family Medicine 09/21/22
--- OUTSIDE RECORDS SUMMARY | 2024-08-15 01:49 | XMS_ITS | Clinical Summary ---
Author Organization [facility] 8 [facility] Address [address] [place] [address] Care Team Providers Care Family Dinner Service Specialist Name Role Phone Nubia Bradford MD Primary Care Provider [phone] Allergies Active Allergy Reactions Criticality Noted Date [...] T PO QD 4 7 Active FLUAD 9548-3050, 67 YR UP,,PF, 45 mcg (15 mcg [...] Prevention Take 1 tablet by mouth. Active nvmsemtvcod-N8-Xzy wellia serr 1,500-400-100 mg-unit-mg tablet Take by [...] T PO BID 0 8 Active FLUAD 5655-6643, 67 YR UP,,PF, 45 mcg (15 mcg [...] Active Active Problems No known active problems Surgical History Surgery Date Site/Laterality Comments FL UPPER GI AIR CONTRAST W KUB 10/08/2018 Left FL UPPER GI AIR CONTRAST W KUB 02/17/2019 Left FL UPPER GI AIR CONTRAST W KUB 06/23/2019 Left FL FLUORO GUIDED LUMBAR PUNCTURE 11/01/2020 Right FL FLUORO GUIDED LUMBAR PUNCTURE 01/04/2021 Right FL FLUORO GUIDED LUMBAR PUNCTURE 03/15/2021 Right FL FLUORO GUIDED LUMBAR PUNCTURE 01/17/2022 Right Medical History Medical History Date Comments Kidney stone Anxiety Arthritis Emphysema of lung (HCC) Hiatal hernia Hypertension Family History Medical History Relation Name Comments Hypertension Mother Cancer Son Lung disease Neg Hx Stroke Neg Hx Relation Name Status Comments Mother Son Social History Tobacco Use Types Packs/Day Years [...] on file Legal Sex Female 12:13 PM BUSINESS 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 Gender Identity Not on file Sexual Orientation Not on file Obstetrics History Last Filed Vital Signs Vital Sign Reading Time Taken Comments Blood Pressure 153/68 01/17/2022 1:26 PM CDT Pulse 77 01/17/2022 1:26 PM CDT Temperature - - Respiratory Rate 16 01/17/2022 1:26 PM CDT Oxygen Saturation - - Inhaled Oxygen Concentration - - Weight 61.2 kg (135 lb) 09/17/2018 3:27 PM BUSINESS 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 Height 162.6 cm (5' 4 ) 09/17/2018 3:27 PM BUSINESS 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 Body Mass Index 23.17 09/17/2018 3:27 PM BUSINESS 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 Plan of Treatment Health Maintenance Due Date Last Done Comments Depression Screening 1940 Fall Risk Assessment 1940 Osteoporosis Screening-Bone Density Scan 1940 DTaP/Tdap/Td Vaccine (1 - Tdap) 1953 Hepatitis B Screening 1960 Well Visit 65+ 11/01/2007 Zoster Vaccine (2 of 3) 08/20/2012 06/25/2012 Pneumococcal vaccine 65+ (2 of 2 - PPSV23 or PCV20) 01/01/2018 Influenza Vaccine (#1) 2024 07/24/2017 [place] [address] Universal Ad Universal Ad MEDICARE MEDICARE Universal Ad Care Teams Family Dinner Service Specialist Relationship Specialty Start Date End Date Nubia Bradford MD PCP - General Family Medicine 09/21/22
== END 2024-08-13 14:06 | disposition home or self-care (01) ==
LOC: ANHLAB 14:07
PROVIDERS: PCP Family Medicine; Visit Provider Family Medicine
DX: R53.83 Other fatigue (principal); E78.2 Mixed hyperlipidemia; I10 Essential (primary) hypertension; E55.9 Vitamin D deficiency, unspecified
CPT/HCPCS: 36415; 80053; 80061; 82306; 84443; 85025

== ENCOUNTER 2024-08-22 13:28 | Outpatient (CLI) | payer MEDICARE, OTHER, SELFPAY ==
--- NOTE | ~2024-08-22 | DEXA_ITS ---
Bone Density Report Name: AZALIA FRANK Age: 83 Sex: Female Ethnicity: White Date of : 1940 Indication: osteopenia; Referring Provider: FE GIMENEZ Study: Bone densitometry was performed. Exam Date: August 22, 2024 Accession number: [id number] Bone Density: Region BMD T-score Z-score Classification AP Spine(L1-L4) 0.893 -1.4 1.4 Osteopenia Femoral Neck (Left) 0.541 -2.8 -0.4 Osteoporosis Total Hip (Left) 0.685 -2.1 0.1 Osteopenia Femoral Neck (Right) 0.587 -2.4 0.0 Osteopenia Total Hip (Right) 0.715 -1.9 0.3 Osteopenia Total Hip Mean 0.700 -2.0 0.2 Osteopenia World Health Organization criteria for BMD impression classify patients as: Normal (T-score at or above -1.0), Osteopenia (T-score between -1.0 and -2.5), or Osteoporosis (T-score at or below -2.5). 10-year Fracture Risk: FRAX not reported because: Some T-score for Spine Total or Hip Total or Femoral Neck at or below -2.5 Previous Exams: Region Exam Age BMD T-score BMD Change BMD Change Date g/cm2 vs Baseline vs Previous AP Spine (L1-L4) 08/22/2024 83 0.893 -1.4 0.016 (1.9%)# -0.038 (-4.1%) 02/16/2022 81 0.931 -1.1 0.054 (6.2%)* 0.054 (6.2%)* 11/13/2019 79 0.877 -1.5 Total Hip(Left) 08/22/2024 83 0.685 -2.1 -0.083 (-10.8% -0.079 (-10.4% 02/16/2022 81 0.764 -1.5 -0.004 (-0.5%) -0.004 (-0.5%) 11/13/2019 79 0.768 -1.4 Total Hip(Right) 08/22/2024 83 0.715 -1.9 -0.035 (-4.7%) -0.048 (-6.3%) 02/16/2022 81 0.762 -1.5 0.012 (1.6%) 0.012 (1.6%) 11/13/2019 79 0.750 -1.6 *Denotes significance at 95% confidence level, LSC for AP Spine = 0.022 g/cm2, LSC for Total Hip = 0.027 g/cm2 # Denotes dissimilar scan types or analysis methods Clinical Information Provided by Patient: Has used the following medications: Vitamin D, Calcium Patient maximum height was 64 Menopause Age: 57 Drinks caffeinated beverages Onset of menses at age 14 Number of children 1 Impression: The patient has osteoporosis, based on the Left Femoral Neck T-score. No significant bone loss was observed. Discussion: INCREASED RISK OF FRACTURE. BONE DENSITY IS UNDESIRABLY LOW AT ONE OR MORE SKELETAL SITES, CONSISTENT WITH POSTMENOPAUSAL OSTEOPOROSIS. This patient's lowest T-score meets the World Health Organization's (WHO) criteria for osteoporosis at one or more sites (T-score -2.5 or below). In untreated patients, the risk of osteoporotic fracture increases approximately two-fold for each 1.0 SD decrease in T-score. Low bone density is not the only risk factor for fracture; also consider factors such as patient's age, frailty or poor health, risk of falling, risk of injury, previous osteoporotic fracture, family history of osteoporosis, cigarette smoking, low body weight, etc. Not everyone with low bone mineral density has osteoporosis; osteomalacia and other metabolic bone disorders should also be considered. Patients who have osteoporosis should be evaluated for specific diseases and conditions (secondary causes) that may cause or contribute to bone loss. The [place] Association of Clinical Endocrinologists (AACE) and National Osteoporosis Foundation (NOF) recommend pharmacologic intervention for all postmenopausal women whose T-score is in this range. The patient should follow a healthful lifestyle (good nutrition with adequate calcium and vitamin D, and appropriate weight-bearing exercise). Follow-Up: Consider a repeat BMD and Vertebral Fracture Assessment (VFA) exam in 2 years or sooner if medically necessary, to reassess this patient's status. Reported by: JASON on 08/22/2024 1:55:00 PM. Reviewed, dictated and finalized at location A. CAROLYN
--- OUTSIDE RECORDS SUMMARY | 2024-08-22 13:32 | XMS_ITS | Clinical Summary ---
Author Organization [facility] S [facility] Address [address] [place] [address] Care Team Providers Care Job Order Clerk Name Role Phone Unavailable Primary Care Provider [...] Pain. Active fluticasone propionate (FLONASE) 50 mcg/spray [place], Suspension nasal inhaler Administer 2 Sprays in each nostril daily. Active Active Problems Problem Noted Date Diagnosed Date Anxiety 05/03/2024 COPD (chronic obstructive pulmonary disease) 01/2024 Encounters Date Type Department Care Team Description 08/14/2024 External Device Data ST[facility] ABSTRACTION Provider, Abstract 08/13/2024 External Device Data ST[facility] ABSTRACTION Provider, Abstract 08/12/2024 External Device Data [facility] ABSTRACTION Provider, Abstract 08/05/2024 External Device Data ST[facility] ABSTRACTION Provider, Abstract 06/09/2024 Abstract [facility] [place] [address] [place] [address] Provider, Abstract 06/07/2024 Abstract [facility] [address] [address] Provider, Abstract from Last 3 Months Social [...] series) 2017 INFLUENZA VACCINE (#1) 2024 Insurance MEDICARE PART A AND B [employer]
== END 2024-08-22 13:29 | disposition home or self-care (01) ==
PROVIDERS: PCP Family Medicine; Visit Provider Family Medicine
DX: M81.0 Age-related osteoporosis without current pathological fracture (principal); M85.89 Other specified disorders of bone density and structure, multiple sites; Z78.0 Asymptomatic menopausal state
CPT/HCPCS: 77080

== ENCOUNTER 2024-12-02 13:09 | Outpatient (CLI) | payer MEDICARE, OTHER, SELFPAY ==
[2024-12-02 13:59] LABS: Basophils Percent Auto 0.4 % (0.2-1.2); Eosinophils Absolute Auto 0.3 K/mm3 (0-0.3); Eosinophils Percent Auto 4.4 % (0-4.4); Hematocrit 39.5 % (37.0-47.0); Hemoglobin 11.9 g/dL (12.0-15.0); Immature Granulocyte Absolute 0.02 K/mm3 (0.00-0.031); Immature Granulocyte Percent A 0.4 % (0-0.5); Lymphocytes Absolute Auto 0.65 K/mm3 (0.9-3.2); Lymphocytes Percent Auto 11.5 % (18.3-44.2); Mean Corpuscular HGB Conc 30.1 g/dl (32-36); Mean Corpuscular Hemoglobin 26.8 pg (26-34); Mean Platelet Volume 10.1 fl (7.4-10.4); Monocytes Absolute Auto 0.6 K/mm3 (0.1-0.6); Monocytes Percent Auto 9.8 % (2.6-8.5); Neutrophils Absolute Auto 4.1 K/mm3 (1.3-6.7); Neutrophils Percent Auto 73.5 % (45.5-73.1); Platelet Count Result 214 k/mm3 (150-375); Red Blood Count 4.44 M/mm3 (4.2-5.4); Red Cell Distribution Width 13.7 % (11.5-14.5); White Blood Count 5.6 K/mm3 (4.5-10.0)
[2024-12-02 14:28] LABS: Alanine Aminotransferase 15 U/L (6-35); Albumin Level 3.9 g/dL (3.5-5.1); Alkaline Phosphatase 91 U/L (38-126); Anion Gap 5 mmol/L (4-12); Aspartate Amino Transferase 23 U/L (14-36); Bilirubin,Total 0.5 mg/dL (0.2-1.3); Blood Urea Nitrogen 28 mg/dL (7-17); Calcium 8.3 mg/dL (8.4-10.2); Carbon Dioxide 27 mmol/L (22-30); Chloride 107 mmol/L (98-107); Cholesterol 194 mg/dL (0-200); Estimated Glomerular Filt Rate 37; Glucose 95 mg/dL (65-110); HDL Direct 61 mg/dL; Potassium 4.9 mmol/L (3.4-5.0); Sodium 139 mmol/L (137-145); Triglycerides 147 mg/dL (<150)
[2024-12-02 14:35] LABS: Iron 84 ug/dL (37-170)
[2024-12-02 14:39] LABS: LDL Cholesterol Direct 80 mg/dL
[2024-12-02 14:54] LABS: Percent Iron Saturation 29 % (20-50)
[2024-12-02 15:16] LABS: Thyroid Stimulating Hormone Reflex 0.642 uIU/mL (0.465-4.68)
[2024-12-02 15:26] LABS: Vitamin D 25 Hydroxy 91.8 ng/mL
[2024-12-02 15:45] LABS: Folic Acid > 20.0 ng/mL (2.76->20)
[2024-12-02 19:33] LABS: Hemoglobin A1C 5.4 % (<5.7)
== END 2024-12-02 13:10 | disposition home or self-care (01) ==
PROVIDERS: PCP Family Medicine; Visit Provider Family Medicine
DX: D64.9 Anemia, unspecified (principal); Z13.1 Encounter for screening for diabetes mellitus; E78.2 Mixed hyperlipidemia; R53.83 Other fatigue; N18.30 Chronic kidney disease, stage 3 unspecified; E55.9 Vitamin D deficiency, unspecified
CPT/HCPCS: 36415; 80053; 80061; 82306; 82607; 82728; 82746; 83036; 83540; 83550; 84443; 85025

== ENCOUNTER 2025-04-22 15:57 | Outpatient (CLI) | payer MEDICARE, OTHER, SELFPAY ==
--- NOTE | ~2025-04-22 | XR_ITS ---
EXAMINATION: XR chest 2V 04/22/2025 16:17 INDICATION: Shortness of breath PROCEDURE: 2 View chest COMPARISON: Comparison to multiple prior studies sequentially, with oldest reviewed study dated 11/26/2023. FINDINGS: The lungs are clear. The cardiomediastinal silhouette is within normal limits. There are no pleural effusions. There is no pneumothorax suspected. There is a surgical device overlies the right hilum, possibly pulmonary artery filter. Clinically correlate. IMPRESSION: 1: NO ACUTE CARDIOPULMONARY DISEASE. Reviewed, dictated and finalized at location B.
--- OUTSIDE RECORDS SUMMARY | 2025-04-22 16:03 | XMS_ITS | Clinical Summary ---
Author Organization [facility] Address [address] [place] [address] Care Team Providers Care Butcher Scullion Name Role Phone Nubia Bradford MD Primary Care Provider [phone] Allergies Active Allergy Reactions Criticality Noted Date [...] T PO QD 4 7 Active FLUAD 9763-3843, 67 YR UP,,PF, 45 mcg (15 mcg [...] Prevention Take 1 tablet by mouth. Active dxnzvmtplov-L3-Fmv wellia serr 1,500-400-100 mg-unit-mg tablet Take by [...] T PO BID 0 8 Active FLUAD 3954-5098, 67 YR UP,,PF, 45 mcg (15 mcg [...] Kidney stone Anxiety Arthritis Emphysema of lung Hiatal hernia Hypertension Family History Medical History [...] on file Legal Sex Female 12:13 PM MANAGER SCIENCE Gender Identity Not on file Sexual Orientation Not on file Obstetrics History Last Filed Vital Signs Vital Sign Reading Time Taken Comments Blood Pressure 153/68 01/17/2022 1:26 PM CDT Pulse 77 01/17/2022 1:26 PM CDT Temperature - - Respiratory Rate 16 01/17/2022 1:26 PM CDT Oxygen Saturation - - Inhaled Oxygen Concentration - - Weight 61.2 kg (135 lb) 09/17/2018 3:27 PM MANAGER SCIENCE Height 162.6 cm (5' 4) 09/17/2018 3:27 PM MANAGER SCIENCE Body Mass Index 23.17 09/17/2018 3:27 PM MANAGER SCIENCE Plan of Treatment Not on file Insurance MEDICARE [employer] MEDICARE MEDICARE [employer] Care Teams Butcher Scullion Relationship Specialty Start Date End Date Nubia Bradford MD PCP - General Family Medicine 09/21/22
--- OUTSIDE RECORDS SUMMARY | 2025-04-22 16:03 | XMS_ITS | Clinical Summary ---
Author Organization [facility] Address [address] [place] [address] Care Team Providers Care Pourer Buggy Ladle Name Role Phone Unavailable Primary Care Provider [...] Pain. Active fluticasone propionate (FLONASE) 50 mcg/spray [place], Suspension nasal inhaler Administer 2 Sprays in each nostril daily. Active Active Problems Problem Noted Date Diagnosed Date Anxiety 05/03/2024 COPD (chronic obstructive pulmonary disease) 01/2024 Encounters Date Type Department Care Team Description 04/07/2025 External Device Data STL ABSTRACTION Provider, Abstract 02/04/2025 External Device Data STL ABSTRACTION Provider, Abstract 02/03/2025 External Device Data STL ABSTRACTION Provider, Abstract from Last 3 Months Social [...] P M CDT Height 162.6 cm (5' 4) 05/07/2024 3:36 PM CDT Body Mass Index 23.42 05/07/2024 3:36 PM CDT Plan of Treatment Health Maintenance Due Date Last Done Comments DTAP/TDAP/TD VACCINES (1 - Tdap) 1961 PNEUMOCOCCAL VACCINE 50+ YEARS (1 of 2 - PCV) 10/31/18 62 ZOSTER VACCINE (1 of 2) 1992 OSTEOPOROSIS SCREENING 11/01/2007 RSV VACCINE (60+ or ) (1 - 1-dose 75+ series) 2017 INFLUENZA VACCINE (#1) 2025 Insurance MEDICARE PART A AND B [employer]
--- OUTSIDE RECORDS SUMMARY | 2025-04-22 16:03 | XMS_ITS | Encounter Summary ---
Author Organization [facility] Healthcare Address [address] [place] [address] Care Team Providers Care Fuel Distribution System Operator Name Role Phone Kennedy Benson MD Primary Care Provider [phone] Nubia Bradford MD Primary Care Provider [phone] Encounter Details Date Type Department Care Team (Late st Contact Info) Description 01/03/2021 Telephone [facility] ([facility]) [address] [place] [address] Barbie Banks, RT Social History Tobacco Use Types Packs/Day Years Used Date Smoking Tobacco: Former Smokeless Tobacco: Former Alcohol Use Standard Drinks/Week Comments Yes 0 (1 standard drink = 0.6 oz pur e alcohol) Comments Unknown Sex and Gender Information Value Date Recorded Sex Assigned at Not on file Legal Sex Female 12:13 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
== END 2025-04-22 15:58 | disposition home or self-care (01) ==
DX: R06.02 Shortness of breath (principal)
CPT/HCPCS: 71046

== ENCOUNTER 2025-05-03 13:02 | Inpatient (IN) | payer MEDICARE, OTHER, SELFPAY ==
[2025-05-03] VITALS (8 sets, daily range): BP systolic 121–168; BP diastolic 44–88; PULSE 82–105; RESP 16–20; TEMP 36.4–37.1; O2SAT 91–100; BMI 23.1
--- NOTE | ~2025-05-03 | XR_ITS ---
EXAMINATION: XR UGI water soluble wo kub DATE: 05/06/2025 09:53 INDICATION: Perforated duodenal ulcer post repair TECHNIQUE: 200 mL water-soluble contrast was administered through the patient's existing nasogastric tube. A total of 25 fluoroscopic images and 2 overhead radiographs of the distal esophagus, stomach, and proximal small bowel were obtained. Fluoroscopy exposure time was 1.7 minutes. Total DAP was 15.397 Gycm^ 2. COMPARISON: 05/04/2025 FINDINGS: Interval postoperative changes are seen with right upper quadrant surgical drain which extends across the midline with distal tip in the left epigastric region and bilateral superficial abdominal wall soft tissue gas. Nasogastric tube tip at the gastric antrum with proximal side-port in the body the stomach. There is a small sliding-type hiatal hernia with gastroesophageal reflux was observed along side the nasogastric tube extending to the midesophagus. Contrast extends into the duodenum and proximal jejunum. There are some residual oral contrast material more distally in the small bowel. There is irregular mucosal contour at the duodenal bulb likely representing the site of duodenal ulcer and subsequent repair. No evident noncontained extraluminal extravasation of contrast. IMPRESSION: 1. Postoperative changes associated with a repair of a perforated ulcer at the first portion of the duodenum with no evident residual extraluminal leakage of contrast. 2. Small sliding-type hiatal hernia with gastroesophageal reflux. Reviewed, dictated and finalized at location A.
--- NOTE | ~2025-05-03 | XR_ITS ---
EXAMINATION: XR UGI water soluble wo kub DATE: 05/04/2025 10:56 INDICATION: Perforated duodenal ulcer TECHNIQUE: Water-soluble contrast was administered through the patient's existing nasogastric tube. Initial imaging demonstrated contrast extending primarily into the distal esophagus through the proximal side-port just above level of the gastroesophageal junction. The nasogastric tube was advanced and additional 5 cm and additional contrast was administered vertebral measured volume of 100 mL Gastrografin water-soluble contrast. Fluoroscopic images were obtained with the patient in the supine position and in the right lateral decubitus position. A total of 12 fluoroscopic images of the esophagus, stomach, and proximal small bowel were obtained. Fluoroscopy exposure time was 1.8 minutes. Total DAP was 14 Gycm^2. COMPARISON: CT dated 05/03/2025 FINDINGS: There is a small sliding-type hiatal hernia. The stomach appears normal. There is contrast extravasation which extends through a 3 mm defect in the wall of the duodenal bulb with contrast extending laterally along the inferior margin of the right hepatic lobe. IMPRESSION: 1. External contrast extravasation through a small perforated ulcer at the duodenal bulb. 2. Small sliding-type hiatal hernia. Reviewed, dictated and finalized at location A. IMPRESSION: 1. External contrast extravasation through a small perforated ulcer at the duod enal bulb. 2. Small sliding-type hiatal hernia.
--- NOTE | ~2025-05-03 | XR_ITS ---
EXAMINATION: XR abdomen gastric tube insert, 05/03/2025 17:10 CDT HISTORY: ng tube placement COMPARISON: No comparisons available. Technique: 3 view. Findings: Bowel gas pattern unremarkable. No obstruction. No free air. No abnormal calcifications No acute osseous abnormality. Nasogastric tube terminates in the stomach Impression: 1. No acute abnormality. Reviewed, dictated and finalized at location P. Impression: 1. No acute abnormality.
--- NOTE | ~2025-05-03 | CT_ITS ---
Elisabet Quan EXAMINATION: CT abdomen pelvis w con COMPARISON: None HISTORY: Abdominal pain TECHNIQUE: Axial images were obtained through the abdomen, pelvis post administration of IV contrast. Oral contrast was also administered. Coronal reconstruction images were obtained from the axial views. CT scan performed using dose optimization techniques including the following automated exposure control; adjustment of mA and/or kV; use of iterative reconstruction technique. Automatic exposure control was used to reduce radiation dose. Permanent radiation dose record is archived to PACS. FINDINGS: CT abdomen: LUNG BASES: The lung bases are clear. The visualized portions of the heart and pericardium are unremarkable. LIVER: Mild hepatic steatosis. Portal vein patent. No intrahepatic biliary duct dilatation. SPLEEN: Unremarkable. KIDNEYS: Right Kidney: Right kidney renal calculi the largest mid pole 3 mm, no hydronephrosis, simple appearing renal cysts the largest mid pole 4 x 4 cm. Left Kidney: Left kidney renal calculi the largest mid pole 10 x 11 mm, no hydronephrosis. ADRENAL GLANDS: Unremarkable. PANCREAS: Unremarkable. GALLBLADDER/BILIARY: Mild hyperemia of the gallbladder. STOMACH AND ESOPHAGUS: Thickening of the esophagus may represent mild esophagitis. Hyperemia of the distal stomach and proximal duodenum noted. BOWEL/MESENTERY: Moderate diverticulosis, no colitis or diverticulitis. Appendix normal. There is stranding within the mesentery in the right upper quadrant. There are tiny posterior extraluminal air noted adjacent to the duodenum. No thickened or dilated loops of small bowel otherwise appreciated. ADENOPATHY/RETROPERITONEUM: No lymphadenopathy. AORTA/VASCULATURE: Normal caliber aorta. FREE FLUID OR FREE AIR: Scattered foci of intra-abdominal free air. No free fluid.. CT pelvis: SOLID ORGANS/REPRODUCTIVE: Uterus atrophic with subcentimeter probable calcified fibroid. Cystic left ovarian lesion 2.5 x 2.5 cm incompletely evaluated, outpatient pelvic ultrasound recommended. BLADDER: Within normal limits. OSSEOUS STRUCTURES: No acute osseous abnormality.No suspicious lesions. OVERLYING SOFT TISSUES: Unremarkable. IMPRESSION: Probable perforated duodenal ulcer. No abscess identified. Results discussed with the referring clinician immediately Reviewed, dictated and finalized at location P. IMPRESSION: Probable perforated duodenal ulcer. No abscess identified. Results discussed wi th the referring clinician immediately
--- OUTSIDE RECORDS SUMMARY | 2025-05-03 13:05 | XMS_ITS | Clinical Summary ---
Author Organization [facility] 8 [facility] Address [address] [place] [address] Care Team Providers Care Pipe Fitter Maintenance Name Role Phone Nubia Bradford MD Primary Care Provider [phone] Allergies Active Allergy Reactions Criticality Noted Date [...] T PO QD 4 7 Active FLUAD 5669-7723, 67 YR UP,,PF, 45 mcg (15 mcg [...] Prevention Take 1 tablet by mouth. 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 Gender Identity Not on file Sexual Orientation Not on file Obstetrics History Last Filed Vital Signs Vital Sign Reading Time Taken Comments Blood Pressure 153/68 01/17/2022 1:26 PM CDT Pulse 77 01/17/2022 1:26 PM CDT Temperature - - Respiratory Rate 16 01/17/2022 1:26 PM CDT Oxygen Saturation - - Inhaled Oxygen Concentration - - Weight 61.2 kg (135 lb) 09/17/2018 3:27 PM J2EE PROGRAMMER Height 162.6 cm (5' 4) 09/17/2018 3:27 PM J2EE PROGRAMMER Body Mass Index 23.17 09/17/2018 3:27 PM J2EE PROGRAMMER Plan of Treatment Not on file Insurance MEDICARE [employer] [place] [place] [address] [employer] Care Teams Pipe Fitter Maintenance Relationship Specialty Start Date End Date Nubia Bradford MD PCP - General Family Medicine 09/21/22
--- OUTSIDE RECORDS SUMMARY | 2025-05-03 13:05 | XMS_ITS | Encounter Summary ---
Author Organization [facility] Healthcare Address [address] [place] [address] Care Team Providers Care Potato Seed Cutter Name Role Phone Kennedy Benson MD Primary Care Provider [phone] Nubia Bradford MD Primary Care Provider [phone] Encounter Details Date Type Department Care Team (Late st Contact Info) Description 01/03/2021 Telephone [facility] ([facility]) [address] [place] [address] Barbie Banks, RT Social History Tobacco Use Types Packs/Day Years Used Date Smoking Tobacco: Former Smokeless Tobacco: Former Alcohol Use Standard Drinks/Week Comments Yes 0 (1 standard drink = 0.6 oz pur e alcohol) Comments Unknown Sex and Gender Information Value Date Recorded Sex Assigned at Not on file Legal Sex Female 12:13 PM BODY WELDER Gender Identity Not on file Sexual Orientation Not on file documented as of this encounter Plan of Treatment Not on file documented as of this encounter Visit Diagnoses Not on filedocumented in this encounter Care Teams Potato Seed Cutter Relationship Specialty Start Date End Date Kennedy Benson MD [address] [place] [address] PCP - General Family Medicine 01/09/18 09/20/22 Nubia Bradford MD [address] [place] [address] PCP - General Family Medicine 09/21/22 documented as of this encounter
--- OUTSIDE RECORDS SUMMARY | 2025-05-03 13:05 | XMS_ITS | Clinical Summary ---
Author Organization [facility] Address [address] [place] [address] Care Team Providers Care Supervisor Hanging And Trimming Name Role Phone Unavailable Primary Care Provider [...] Pain. Active fluticasone propionate (FLONASE) 50 mcg/spray [place], Suspension nasal inhaler Administer 2 Sprays in [...] 2025 Insurance MEDICARE PART A AND B [employer]
[2025-05-03 15:01] LABS: Hematocrit 45.5 % (37.0-47.0); Hemoglobin 14.3 g/dL (12.0-15.0); Mean Corpuscular HGB Conc 31.4 g/dl (32-36); Mean Corpuscular Hemoglobin 27.6 pg (26-34); Mean Corpuscular Volume 87.7 fl (80-100); Platelet Count Result 314 k/mm3 (150-375); Red Blood Count 5.19 M/mm3 (4.2-5.4); White Blood Count 29.0 K/mm3 (4.5-10.0)
--- NOTE | 2025-05-03 15:09 | PC.NURSE ---
Pt states she is unable to urinate at this time
[2025-05-03 15:22] LABS: Alanine Aminotransferase 18 U/L (6-35); Albumin Level 4.1 g/dL (3.5-5.1); Alkaline Phosphatase 76 U/L (38-126); Anion Gap 7 mmol/L (4-12); Aspartate Amino Transferase 31 U/L (14-36); Bilirubin,Total 0.7 mg/dL (0.2-1.3); Blood Urea Nitrogen 35 mg/dL (7-17); Calcium 8.9 mg/dL (8.4-10.2); Carbon Dioxide 24 mmol/L (22-30); Chloride 103 mmol/L (98-107); Estimated CRCL calculation 27 ml/min; Estimated Glomerular Filt Rate 41; Glucose 176 mg/dL (65-110); Lipase 380 U/L (23-300); Potassium 4.8 mmol/L (3.4-5.0); Sodium 134 mmol/L (137-145); Total Protein 7.2 g/dL (6.3-8.2)
--- OUTSIDE RECORDS SUMMARY | 2025-05-03 15:25 | XMS_ITS | Clinical Summary ---
Author Organization [facility] 8 [facility] Address [address] [place] [address] Care Team Providers Care Multiskill Operator Name Role Phone Nubia Bradford MD Primary Care Provider [phone] Allergies Active Allergy Reactions Criticality Noted Date [...] T PO QD 4 7 Active FLUAD 0450-8678, 67 YR UP,,PF, 45 mcg (15 mcg [...] Prevention Take 1 tablet by mouth. Active dugqrmrzjsi-W4-Klp wellia serr 1,500-400-100 mg-unit-mg tablet Take by [...] T PO BID 0 8 Active FLUAD 9061-0938, 67 YR UP,,PF, 45 mcg (15 mcg [...] on file Legal Sex Female 12:13 PM OPTICIAN MANAGER Gender Identity Not on file Sexual Orientation Not on file Obstetrics History Last Filed Vital Signs Vital Sign Reading Time Taken Comments Blood Pressure 153/68 01/17/2022 1:26 PM CDT Pulse 77 01/17/2022 1:26 PM CDT Temperature - - Respiratory Rate 16 01/17/2022 1:26 PM CDT Oxygen Saturation - - Inhaled Oxygen Concentration - - Weight 61.2 kg (135 lb) 09/17/2018 3:27 PM OPTICIAN MANAGER Height 162.6 cm (5' 4) 09/17/2018 3:27 PM OPTICIAN MANAGER Body Mass Index 23.17 09/17/2018 3:27 PM OPTICIAN MANAGER Plan of Treatment Not on file Insurance MEDICARE [place] [employer] [place] [address] [employer] Care Teams Multiskill Operator Relationship Specialty Start Date End Date Nubia Bradford MD PCP - General Family Medicine 09/21/22
--- OUTSIDE RECORDS SUMMARY | 2025-05-03 15:25 | XMS_ITS | Encounter Summary ---
Author Organization [facility] Healthcare Address [address] [place] [address] Care Team Providers Care English Composition Instructor Name Role Phone Kennedy Benson MD Primary Care Provider [phone] Nubia Bradford MD Primary Care Provider [phone] Encounter Details Date Type Department Care Team (Late st Contact Info) Description 01/03/2021 Telephone [facility] ([facility]) [address] [place] [address] Barbie Banks, RT Social History Tobacco Use Types Packs/Day Years Used Date Smoking Tobacco: Former Smokeless Tobacco: Former Alcohol Use Standard Drinks/Week Comments Yes 0 (1 standard drink = 0.6 oz pur e alcohol) Comments Unknown Sex and Gender Information Value Date Recorded Sex Assigned at Not on file Legal Sex Female 12:13 PM FLEET MANAGER Gender Identity Not on file Sexual Orientation Not on file documented as of this encounter Plan of Treatment Not on file documented as of this encounter Visit Diagnoses Not on filedocumented in this encounter Care Teams English Composition Instructor Relationship Specialty Start Date End Date Kennedy Benson MD [address] [place] [address] PCP - General Family Medicine 01/09/18 09/20/22 Nubia Bradford MD [address] [place] [address] PCP - General Family Medicine 09/21/22 documented as of this encounter
--- OUTSIDE RECORDS SUMMARY | 2025-05-03 15:25 | XMS_ITS | Clinical Summary ---
Author Organization [facility] Address [address] [place] [address] Care Team Providers Care Finisher Accordion Name Role Phone Unavailable Primary Care Provider [...] Pain. Active fluticasone propionate (FLONASE) 50 mcg/spray [place], Suspension nasal inhaler Administer 2 Sprays in [...] 2025 Insurance MEDICARE PART A AND B [email or web address]
[2025-05-03 15:28] LABS: Band Neutrophils Percent 4 % (0-6); Lymphocytes Absolute Manual 1.74 K/mm3 (1.1-4.5); Lymphocytes Percent Manual 6.0 % (18-44); Monocytes Absolute Manual 0.58 K/mm3 (0.1-0.90); Monocytes Percent Manual 2 % (3-9); Neutrophils Absolute Manual 26.68 K/mm3 (1.3-6.7); Neutrophils Percent Manual 88 % (46-73); Schistocytes None Seen; Total Cells Counted 100
[2025-05-03 15:29] LABS: Anisocytosis 1+; Hypochromasia 1+
[2025-05-03] MEDS: ONDANSETRON INJ 4 MG/2 ML VIAL IV PUSH (16:15)
[2025-05-03] MEDS: MORPHINE SULFATE (*CRX) 4 MG/ML INJ 2 MG IV PUSH ×3 (16:15→22:21)
[2025-05-03] MEDS: SODIUM CHLORIDE 0.9% IV 1,000 ML 999 ML IV CONT ×2 (16:16→16:47)
[2025-05-03] MEDS: PANTOPRAZOLE SODIUM IV 40 MG VIAL IV PUSH (16:16)
--- NOTE | 2025-05-03 16:21 | ED_ITS ---
HPI - General Adult General Chief complaint: Abdominal Pain Stated complaint: SWEATING, R LOWER RIB PAIN, COUGHING Time Seen by Provider: 05/03/25 15:21 History of Present Illness HPI narrative: Patient 84-year-old female who presents emergency department with chief complaint of epigastric and right upper quadrant pain patient states she has been having discomfort for the last 4 days reports she has had some nausea with it but no actual vomiting patient reports she has had bowel movements patient reports that she has had no prior abdominal surgeries Related Data Home Medications ?Medication ?Instructions ?Recorded ?Confirmed ?Last Taken ?Type lactobacillus combination no.4 3 3,000 mmu cells PO DA PAYTON 03/02/21 04/29/25 10/08/24 History billion cell capsule (Probiotic) multivitamin with minerals 1 tablet PO DAILY 03/02/21 04/29/25 Unknown History (Hair,Skin and Nails tablet) biotin 10,000 mcg chewable tablet 10,000 mcg PO BID 04/29/25 Unknown History (Hair, Skin and Nails (biotin)) psyllium husk 0.4 gram capsule 0.4 g PO DAILY 01/30/23 04/29/25 Unknown History (Daily Fiber) cholecalciferol (vitamin D3) 1,250 1,250 mcg PO MONTHL Y 09/03/24 04/29/25 Unknown History mcg (50,000 unit) capsule Allergies Allergy/AdvReac Type Severity Reaction Status Date / Time amoxicillin Allergy Unknown Gastrointestinal Verified 05/03/25 13:03 Upset cefdinir Allergy Unknown Gastrointestinal Verified 05/03/25 13:03 Upset fosinopril Allergy Unknown Gastrointestinal Verified 05/03/25 13:03 Upset Sulfa (Sulfonamide Allergy Unknown Gastrointestinal Verified 05/03/25 13:03 Antibiotics) Upset sulfamethizole Allergy Unknown Gastrointestinal Verified 05/03/25 13:03 Upset trimethoprim Allergy Unknown Gastrointestinal Verified 05/03/25 13:03 Upset promethazine AdvReac Severe Jittery Verified 05/03/25 13:03 Review of Systems 2 Review of Systems: A 10 system review of systems was completed on the patient and is negative except for what is stated in the HPI. Nursing and ancillary documentation was reviewed. 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 Internal hemorrhoids Sigmoid diverticulosis Melena BMI 26.0-26.9,adult Acute viral pharyngitis Right foot pain Vitamin D deficiency Seasonal allergic rhinitis History of kidney stones Low back pain radiating to left leg Mixed hyperlipidemia Depression with anxiety Urinary frequency Osteoarthritis involving multiple joints on both sides of body COPD exacerbation History of peptic ulcer History of tobacco abuse Surgical History Surgical History (Updated 05/03/25 @ 17:22 by Eugene Alexandra DO) No significant past surgical history Family History Family History Mother Hypertension Cerebrovascular accident, Onset Age: 72 Sibling Asthma Diabetes mellitus Father Acute myocardial infarction Patient's father is , Onset Age: 71 Family history of coronary artery disease Family history of congestive heart failure Grandparent Family history of malignant neoplasm Acute myocardial infarction Cerebrovascular accident Social History Social History Smoking packs per day: 2 Smoking cigarettes per day: 40.0 Years smoked: 40 Smoking pack-years: 80.00 Smoking status: Former smoker Tobacco type: cigarettes Second hand tobacco smoke exposure: No Smoking end date: 07/23/07 Additional smoking assessment comments: STATES QUIT 2007 Alcohol intake: never Substance use: never Substance use type: does not use Lack of Transportation: No Lack of Food: Never True Current Housing: Decline to Answer Concerned About Future Housing: Decline to Answer Difficulty Paying Gas/Electric Bills: Decline to Answer Difficulty Paying for Meds: Decline to Answer Currently Unemployed: Decline to Answer Education: High School Diploma/GED Difficulty w/ Childcare or Family Care: No Living arrangements: alone Occupation/Education: retired Gender identity (if verbalized by the patient): Female Spiritual care concerns: No Agree to blood products: Yes Exam 2 Narrative: GENERAL: Well-appearing, well-nourished, and in no acute distress. HEAD: Normocephalic, atraumatic. EYES: PERRLA and EOMI. ENT: Nares clear, no rhinorrhea or epistaxis. Mucous membranes moist. NECK: Supple. CHEST: Clear to auscultation. No respiratory distress. HEART: Regular rate and rhythm. No murmur heard. Normal peripheral pulses. ABDOMEN: Soft, tenderness to palpation the epigastric and right side of the abdomen, nondistended, normal active bowel sounds. EXTREMITIES: Normal range of motion. No edema. SKIN: Warm, dry, no rash. NEURO: No focal deficits. Alert and oriented x3. PSYCH: Normal mood and affect. Course Vital Signs Vital signs: Vital Signs Temperature 36.4 C 05/03/25 13:06 Pulse Rate 82 05/03/25 13:06 Respiratory Rate 20 05/03/25 13:06 Blood Pressure 154/70 H 05/03/25 13:06 Pulse Oximetry 97 05/03/25 13:06 Oxygen Delivery Room Air 05/03/25 13:06 Temperature 36.4 C 05/03/25 13:06 Pulse Rate 99 05/03/25 17:06 Respiratory Rate 20 05/03/25 17:06 Blood Pressure 139/88 05/03/25 17:06 Pulse Oximetry 91 05/03/25 17:06 Oxygen Delivery Room Air 05/03/25 13:06 Medical Decision Making MDM Narrative Medical decision making narrative: Differential diagnosis includes visceral perforation, ulcer, intra-abdominal infection, diverticulitis, colitis, cholecystitis, appendicitis Laboratory studies were obtained on the patient showed a white count of 29 lipase was 380 The patient received IV pain medications and IV fluids and antiemetics. CT scan of the abdomen pelvis was obtained that showed Probable perforated duodenal ulcer. No abscess identified. Results discussed with the referring clinician immediately The case was discussed with the surgeon on-call who will come in and evaluate the patient and decide whether emergent surgical intervention is required. The patient was seen by surgery in the emergency department at this time will be managed conservatively with IV antibiotics and NG tube Vital Signs Vital Signs: Vital Signs Temperature 36.4 C 05/03/25 13:06 Pulse Rate 82 05/03/25 13:06 Respiratory Rate 20 05/03/25 13:06 Blood Pressure 154/70 H 05/03/25 13:06 Pulse Oximetry 97 05/03/25 13:06 Oxygen Delivery Room Air 05/03/25 13:06 Temperature 36.4 C 05/03/25 13:06 Pulse Rate 99 05/03/25 17:06 Respiratory Rate 20 05/03/25 17:06 Blood Pressure 139/88 05/03/25 17:06 Pulse Oximetry 91 05/03/25 17:06 Oxygen Delivery Room Air 05/03/25 13:06 Lab Data 05/03/25 14:55 05/03/25 14:55 Labs: Lab Results 05/03/25 05/03/25 05/03/25 Range/Units 14:55 16:21 16:34 WBC 29.0 H (4.5-10.0) K/mm3 RBC 5.19 (4.2-5.4) M/mm3 Hgb 14.3 (12.0-15.0) g/dL Hct 45.5 (37.0-47.0) % MCV 87.7 (80-100) fl MCH 27.6 (26-34) pg MCHC 31.4 L (32-36) g/dl RDW 14.2 (11.5-14.5) % Plt Count 314 (150-375) k/mm3 MPV 10.1 (7.4-10.4) fl Immature Gran % (Auto) Not Reportable Neut % (Auto) Not Reportable Lymph % (Auto) Not Reportable Sharkey % (Auto) Not Reportable Eos % (Auto) Not Reportable Baso % (Auto) Not Reportable Lymph # (Auto) Not Reportable Sharkey # (Auto) Not Reportable Eos # (Auto) Not Reportable Baso # (Auto) Not Reportable Abs Immat Gran (auto) Not Reportable Absolute Neuts (auto) Not Reportable Absolute Nucleated RBC Not Reportable Total Counted 100 Neutrophils % (Manual) 88 H (46-73) % Band Neutrophils % 4 (0-6) % Lymphocytes % (Manual) 6.0 L (18-44) % Monocytes % (Manual) 2 L (3-9) % Nucleated RBC % Not Reportable Abs Neuts (Manual) 26.68 H (1.3-6.7) K/mm3 Abs Lymphs (Manual) 1.74 (1.1-4.5) K/mm3 Abs Monocytes (Manual) 0.58 (0.1-0.90) K/mm3 Platelet Estimate Adequate (Adequate) Hypochromasia 1+ Anisocytosis 1+ Schistocytes None seen Sodium 134 L (137-145) mmol/L Potassium 4.8 (3.4-5.0) mmol/L Chloride 103 (98-107) mmol/L Carbon Dioxide 24 (22-30) mmol/L Anion Gap 7 (4-12) mmol/L BUN 35 H (7-17) mg/dL Creatinine 1.25 H (0.7-1.0) mg/dL Estim Creat Clear Calc 27 ml/min Estimated GFR 41 L (59 - ) Glucose 176 H (65-110) mg/dL Lactic Acid 2.4 H (0.7-2.0) mmol/L Calcium 8.9 (8.4-10.2) mg/dL Total Bilirubin 0.7 (0.2-1.3) mg/dL AST 31 (14-36) U/L ALT 18 (6-35) U/L Alkaline Phosphatase 76 (38-126) U/L Total Protein 7.2 (6.3-8.2) g/dL Albumin 4.1 (3.5-5.1) g/dL Lipase 380 H (23-300) U/L Urine Color Yellow (Yellow) Urine Appearance Clear (Clear) Urine pH 5.0 (5.0-9.0) Ur Specific [place] 1.041 H (1.001-1.035) Urine Protein Trace (Negative) mg/dL Urine Glucose (UA) Negative (Negative) mg/dL Urine Ketones Negative (Negative) mg/dL Ur Blood (Man) Negative (Negative) Urine Nitrate Negative (Negative) Urine Bilirubin Negative (Negative) Urine Urobilinogen 0.2 (<2.0) mg/dL Leukocyte Esterase Rfl Trace H (Negative) CODIE/UL Urine RBC 0-2 (0-2) /hpf Urine WBC 11-20 H (0-3) /hpf Ur Squamous Epith Cells None seen (Few) /hpf Urine Bacteria None seen /hpf Urine Casts 3-5 Critical Care Time Critical Care Time Critical Care Time: Yes Total Critical Care Time: 35 Discharge Plan Discharge Clinical Impression: Abdominal pain, Leukocytosis, Duodenal perforation Patient Disposition: Still a Patient Condition: Stable Instructions: Antibiotic Form Patient Language: Georgian Prescriptions: No Action Probiotic 3 billion cell capsule 3,000 mmu cells PO DAILY Rx Instructions: administer with a meal multivitamin with minerals [Hair,Skin and Nails] Tablet 1 tablet PO DAILY conjugated estrogens 0.625 mg/gram cream 0.3125 mg vaginal DAILY Qty: 30 0RF (DME) Aerochamber MV Spacer See Rx Instructions .ROUTE .MEDSUPPLY Qty: 1 0RF Rx Instructions: As directed Hair, Skin and Nails (biotin) 10,000 mcg tablet,chewable 10,000 mcg PO BID psyllium husk [Daily Fiber] 0.4 gram capsule 0.4 g PO DAILY fluticasone propionate [Flonase Allergy Relief] 50 mcg/actuation spray,suspension 2 spray intranasal BID Qty: 48 3RF Rx Instructions: administer into each nostril. Aim back/up/out benzonatate 200 mg capsule 200 mg PO TID Qty: 30 0RF (DME) [facility] for [facility] See Rx Instructions .Route .MEDSUPPLY Qty: 1 0RF Rx Instructions: As directed for administration by [facility] albuterol sulfate 2.5 mg /3 mL (0.083 %) solution for nebulization See Rx Instructions .ROUTE .COMPLEX Qty: 30 11RF Dose Instruction: USE 1 VIAL IN NEBULIZER DAILY - (For Rescue) Rx Instructions: USE 1 VIAL IN NEBULIZER DAILY - (For Rescue) clobetasol 0.05 % cream 1 applic topical DAILY Qty: 60 0RF Rx Instructions: Apply thin layer sparingly to affected area mupirocin 2 % ointment 1 applic topical TID Qty: 15 0RF cholecalciferol (vitamin D3) 1,250 mcg (50,000 unit) capsule 1,250 mcg PO MONTHLY arformoterol 15 mcg/2 mL solution for nebulization See Rx Instructions .ROUTE .COMPLEX Qty: 60 11RF Dose Instruction: USE 1 VIAL IN NEBULIZER TWICE DAILY - morning and evening Rx Instructions: USE 1 VIAL IN NEBULIZER TWICE DAILY - morning and evening budesonide 0.5 mg/2 mL suspension for nebulization See Rx Instructions .ROUTE .COMPLEX Qty: 60 11RF Dose Instruction: USE 1 VIAL IN NEBULIZER TWICE DAILY - rinse mouth after treatment Rx Instructions: USE 1 VIAL IN NEBULIZER TWICE DAILY - rinse mouth after treatment Yupelri 175 mcg/3 mL solution for nebulization See Rx Instructions .ROUTE .COMPLEX Qty: 30 11RF Dose Instruction: USE 1 VIAL IN NEBULIZER DAILY - - DO NOT MIX WITH OTHER NEBULIZER MEDICATION Rx Instructions: USE 1 VIAL IN NEBULIZER DAILY - - DO NOT MIX WITH OTHER NEBULIZER MEDICATION omeprazole 40 mg capsule,delayed release(DR/EC) 40 mg PO DAILY Qty: 90 3RF duloxetine 20 mg capsule,delayed release(DR/EC) 20 mg PO BID Qty: 60 4RF amiloride-hydrochlorothiazide 5-50 mg tablet 1 tablet PO HS Qty: 90 1RF hydrocodone-acetaminophen 5-325 mg tablet 1 tablet PO Q4H PRN (Reason: pain) Qty: 30 0RF losartan 100 mg tablet 100 mg PO HS Qty: 90 1RF Follow-up/Referrals: Christy Gallardo PA-C [Primary Care Provider, [facility]] Time of Disposition: 17:24
[2025-05-03 16:43] LABS: Add Urine Microscopic? YES; Appearance Urine Clear (Clear); Glucose Urine UA Negative (Negative); Leukocyte Esterase Ur Trace LEU/UL (Negative); Nitrate Urine Negative (Negative); Specific Grav Ur 1.041 (1.001-1.035)
--- NOTE | 2025-05-03 17:17 | PM.CNGS ---
Assessment and Plan Assessment and plan (1) Duodenal perforation: Code(s): K63.1 - Perforation of intestine (nontraumatic) Status: Acute Assessment and Plan: I reviewed the CT and discussed the findings with the patient after my assessment. She has evidence of a few small bubbles of free air near the duodenum which seems consistent with a perforated duodenal ulcer. There does not appear to be any free fluid to suggest a large perforation. With this condition, there is significant consideration for requiring emergent surgery. However given the localized nature to the couple small areas of free air and the fact that patient is hemodynamically stable, this might be a small microscopic perforation that has a good chance of being treated non operatively. Patient will be started on broad-spectrum IV antibiotics and NG tube will be placed. Will also start Protonix 40 mg IV q.12 hours. If patient does not show a quick turnaround within the next 12-24 hours, she may need surgical exploration and possible perforated ulcer repair. Will continue to follow the patient with serial abdominal exams. (2) GERD (gastroesophageal reflux disease): Code(s): K21.9 - Gastro-esophageal reflux disease without esophagitis Status: Acute (3) Chronic obstructive pulmonary disease: Qualifiers: COPD type: unspecified COPD Qualified Code(s): J44.9 - Chronic obstructive pulmonary disease, unspecified Code(s): J44.9 - Chronic obstructive pulmonary disease, unspecified Status: Acute (4) Essential (primary) hypertension: Code(s): I10 - Essential (primary) hypertension Status: Acute History of Present Illness Consult details Consult date: 05/03/25 Reason for consult: other (Perforated ulcer) Requesting physician: Italo Olvera MD Narrative: This is an 84-year-old woman who I was called to the emergency department to evaluate for probable perforated duodenal ulcer. She began having acute onset of severe abdominal pain this afternoon. She states she had eaten a half a hamburger answer fries for lunch and then shortly after began experiencing the pain. She was having some chills and sweats just after eating. She had been having some occasional dysphagia and abdominal discomfort over the past 3 days leading up to this. She does have a history of GERD and takes omeprazole. She takes a baby aspirin but denies any NSAID use. She is a former smoker. She denies any alcohol use. In the emergency department she was noted to have an elevated white blood count and CT showed evidence of a few small areas of extraluminal air near the duodenum suspicious for perforated duodenal ulcer. She states her pain is currently coming and going but at times it is rated at 10/10 and then it will subside or feel a little bit less. Review of Systems Review of Systems: All systems reviewed & are unremarkable except as noted in HPI and below Constitutional: Constitutional: Reports chills Eyes: Eyes: Denies change in vision ENT: Denies hearing loss, Denies neck pain and Denies sore throat Cardiovascular: Cardiovascular: Denies chest pain and Denies dyspnea Respiratory: Respiratory: Denies cough, Denies dyspnea and Denies wheezing Gastrointestinal: Gastrointestinal: Reports as per HPI Genitourinary: Genitourinary: Denies hematuria and Denies dysuria Musculoskeletal: Musculoskeletal: Denies arthralgias, Denies joint swelling and Denies neck pain Allergic/Immunologic: Allergic/Immunologic: Denies wheezing 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 Internal hemorrhoids Sigmoid diverticulosis Melena BMI 26.0-26.9,adult Acute viral pharyngitis Right foot pain Vitamin D deficiency Seasonal allergic rhinitis History of kidney stones Low back pain radiating to left leg Mixed hyperlipidemia Depression with anxiety Urinary frequency Osteoarthritis involving multiple joints on both sides of body COPD exacerbation History of peptic ulcer History of tobacco abuse Surgical History Surgical History (Updated 05/03/25 @ 17:22 by Eugene Alexandra DO) No significant past surgical history Family History Family History Mother Hypertension Cerebrovascular accident, Onset Age: 72 Sibling Asthma Diabetes mellitus Father Acute myocardial infarction Patient's father is , Onset Age: 71 Family history of coronary artery disease Family history of congestive heart failure Grandparent Family history of malignant neoplasm Acute myocardial infarction Cerebrovascular accident Social History Social History Smoking packs per day: 2 Smoking cigarettes per day: 40.0 Years smoked: 40 Smoking pack-years: 80.00 Smoking status: Former smoker Tobacco type: cigarettes Second hand tobacco smoke exposure: No Smoking end date: 07/23/07 Additional smoking assessment comments: STATES QUIT 2008 Alcohol intake: never Substance use: never Substance use type: does not use Lack of Transportation: No Lack of Food: Never True Current Housing: Decline to Answer Concerned About Future Housing: Decline to Answer Difficulty Paying Gas/Electric Bills: Decline to Answer Difficulty Paying for Meds: Decline to Answer Currently Unemployed: Decline to Answer Education: High School Diploma/GED Difficulty w/ Childcare or Family Care: No Living arrangements: alone Occupation/Education: retired Gender identity (if verbalized by the patient): Female Spiritual care concerns: No Agree to blood products: Yes Meds Home Medications and Allergies Home Medications ?Medication ?Instructions ?Recorded ?Confirmed ?Type lactobacillus combination no.4 3 3,000 mmu cells PO DAILY 03/02/21 04/29/25 History billion cell capsule (Probiotic) multivitamin with minerals 1 tablet PO DAILY 03/02/21 04/29/25 History (Hair,Skin and Nails tablet) inhalational spacing device #1 ea 12/06/21 04/29/25 Rx (Aerochamber MV spacer) conjugated estrogens 0.625 mg/gram 0.3125 mg vaginal DAILY #30 grams 11/24/22 04/29/25 Rx vaginal cream biotin 10,000 mcg chewable tablet 10,000 mcg PO BID 01/30/23 04/29/25 History (Hair, Skin and Nails (biotin)) psyllium husk 0.4 gram capsule 0.4 g PO DAILY 01/30/23 04/29/25 History (Daily Fiber) [facility] Cancer center for Prolia #1 ea 08/07/23 04/29/25 Rx fluticasone propionate 50 2 spray intranasal BID #48 mL 11/22/23 04/29/25 Rx mcg/actuation nasal spray,suspension (Flonase Allergy Relief) albuterol sulfate 2.5 mg/3 mL See Rx Instructions .Route 11/29/23 04/29/25 Rx (0.083 %) solution for nebulization .COMPLEX #30 vials clobetasol 0.05 % topical cream 1 applic topical DAILY #60 grams 12/11/23 04/29/25 Rx mupirocin 2 % topical ointment 1 applic topical TID #15 grams 02/18/24 04/29/25 Rx cholecalciferol (vitamin D3) 1,250 1,250 mcg PO MONTHLY 09/03/24 04/29/25 History mcg (50,000 unit) capsule arformoterol 15 mcg/2 mL solution See Rx Instructions .Route 09/29/24 04/29/25 Rx for nebulization .COMPLEX #60 ea budesonide 0.5 mg/2 mL suspension See Rx Instructions .Route 09/29/24 04/29/25 Rx for nebulization .COMPLEX #60 ea revefenacin 175 mcg/3 mL solution See Rx Instructions .Route 11/05/24 04/29/25 Rx for nebulization (Yupelri) .COMPLEX #30 vials omeprazole 40 mg capsule,delayed 40 mg PO DAILY #90 caps 11/25/24 04/29/25 Rx release duloxetine 20 mg capsule,delayed 20 mg PO BID #60 caps 11/27/24 04/29/25 Rx release amiloride 5 mg-hydrochlorothiazide 1 tablet PO HS #90 tabs 02/04/25 04/29/25 Rx 50 mg tablet hydrocodone 5 mg-acetaminophen 325 1 tablet PO Q4H PRN pain #30 tabs 02/17/25 04/29/25 Rx mg tablet losartan 100 mg tablet 100 mg PO HS #90 tabs 04/09/25 04/29/25 Rx benzonatate 200 mg capsule 200 mg PO TID #30 caps 04/29/25 04/29/25 Rx Allergies Allergy/AdvReac Type Severity Reaction Status Date / Time amoxicillin Allergy Unknown Gastrointestinal Verified 05/03/25 13:03 Upset cefdinir Allergy Unknown Gastrointestinal Verified 05/03/25 13:03 Upset fosinopril Allergy Unknown Gastrointestinal Verified 05/03/25 13:03 Upset Sulfa (Sulfonamide Allergy Unknown Gastrointestinal Verified 05/03/25 13:03 Antibiotics) Upset sulfamethizole Allergy Unknown Gastrointestinal Verified 05/03/25 13:03 Upset trimethoprim Allergy Unknown Gastrointestinal Verified 05/03/25 13:03 Upset promethazine AdvReac Severe Jittery Verified 05/03/25 13:03 Vital Signs Vital Signs - 24 hr 05/03/25 13:06 05/03/25 16:21 05/03/25 17:06 Temperature 97.6 F Pulse Rate 82 100 99 Respiratory Rate 20 18 20 Blood Pressure 154/70 H 121/68 139/88 Pulse Oximetry 97 95 91 Oxygen Delivery Room Air Exam Const: General: alert; No acute distress Orientation/consciousness: patient oriented x3 Limitations: no limitations HENMT: Head: normocephalic and atraumatic Ears: hearing grossly normal bilaterally Face/Nose/Sinus: Normal external nose present and Normal nares present Mouth: Yes Normal oral and palatal mucosa present and Yes moist mucous membranes Eyes: General: appearance normal, both eyes and all related structures Conjunctivae: conjunctivae normal Sclera: sclerae normal Pupils: Equal, round and reactive pupils present EOM: EOMs intact bilaterally Neck: Neck: normal visual inspection, full ROM, no lymphadenopathy, supple and no JVD Lymphatic: no lymphadenopathy noted Chest: Chest palpation & inspection: normal inspection of the chest Resp: Effort & Inspection: normal respiratory effort and able to speak in complete sentences Auscultation: clear to auscultation bilaterally Percussion: percussion normal Cardio: Jugular venous distension: no JVD Rate: regular rate Rhythm: regular rhythm Heart sounds: S1 normal heart sound present and S2 normal heart sound present Peripheral pulses: Peripheral pulses 2+ throughout GI: Inspection: normal to inspection and non-distended GI Palp: Yes Soft to palpation, Yes Tenderness to palpation present (GI) (Epigastric and right lower quadrant), Yes Guarding due to palpation present (GI) (Epigastric and Right lower quadrant) and No Rebound tenderness present Auscultation: Hypoactive bowel sounds present : General: Yes no CVA tenderness Back/Spine/Pelvis: Back: no CVA tenderness Skin: General skin exam: normal color and dry skin Neuro: General: patient oriented x3, gait normal, moves all extremities, no focal motor deficits and CN's II-XI intact bilaterally Cranial nerves: Yes Equal, round and reactive pupils present Speech: normal speech Extrem: General: normal to inspection and capillary refill normal Results Labs 05/03/25 14:55 05/03/25 14:55 Labs: Abnormal lab results 05/03/25 05/03/25 05/03/25 Range/Units 14:55 16:21 16:34 WBC 29.0 H (4.5-10.0) K/mm3 MCHC 31.4 L (32-36) g/dl Neutrophils % (Manual) 88 H (46-73) % Lymphocytes % (Manual) 6.0 L (18-44) % Monocytes % (Manual) 2 L (3-9) % Abs Neuts (Manual) 26.68 H (1.3-6.7) K/mm3 Sodium 134 L (137-145) mmol/L BUN 35 H (7-17) mg/dL Creatinine 1.25 H (0.7-1.0) mg/dL Estimated GFR 41 L (59 - ) Glucose 176 H (65-110) mg/dL Lactic Acid 2.4 H (0.7-2.0) mmol/L Lipase 380 H (23-300) U/L Ur Specific [place] 1.041 H (1.001-1.035) Leukocyte Esterase Rfl Trace H (Negative) CODIE/UL Urine WBC 11-20 H (0-3) /hpf Diabetes panel 05/03/25 Range/Units 14:55 Sodium 134 L (137-145) mmol/L Potassium 4.8 (3.4-5.0) mmol/L Chloride 103 (98-107) mmol/L Carbon Dioxide 24 (22-30) mmol/L BUN 35 H (7-17) mg/dL Creatinine 1.25 H (0.7-1.0) mg/dL Glucose 176 H (65-110) mg/dL Calcium 8.9 (8.4-10.2) mg/dL AST 31 (14-36) U/L ALT 18 (6-35) U/L Alkaline Phosphatase 76 (38-126) U/L Total Protein 7.2 (6.3-8.2) g/dL Albumin 4.1 (3.5-5.1) g/dL Calcium panel 05/03/25 Range/Units 14:55 Calcium 8.9 (8.4-10.2) mg/dL Albumin 4.1 (3.5-5.1) g/dL Pituitary panel 05/03/25 Range/Units 14:55 Sodium 134 L (137-145) mmol/L Potassium 4.8 (3.4-5.0) mmol/L Chloride 103 (98-107) mmol/L Carbon Dioxide 24 (22-30) mmol/L BUN 35 H (7-17) mg/dL Creatinine 1.25 H (0.7-1.0) mg/dL Glucose 176 H (65-110) mg/dL Calcium 8.9 (8.4-10.2) mg/dL Adrenal panel 05/03/25 Range/Units 14:55 Sodium 134 L (137-145) mmol/L Potassium 4.8 (3.4-5.0) mmol/L Chloride 103 (98-107) mmol/L Carbon Dioxide 24 (22-30) mmol/L BUN 35 H (7-17) mg/dL Creatinine 1.25 H (0.7-1.0) mg/dL Glucose 176 H (65-110) mg/dL Calcium 8.9 (8.4-10.2) mg/dL Total Bilirubin 0.7 (0.2-1.3) mg/dL AST 31 (14-36) U/L ALT 18 (6-35) U/L Alkaline Phosphatase 76 (38-126) U/L Total Protein 7.2 (6.3-8.2) g/dL Albumin 4.1 (3.5-5.1) g/dL All other labs normal. Imaging Additional studies: ITS Impressions Abdomen/Pelvis CT 05/03/25 16:07 IMPRESSION: Probable perforated duodenal ulcer. No abscess identified. Results discussed with the referring clinician immediately
--- NOTE | 2025-05-03 17:49 | PM.IMHP ---
H&P: HPI History of Present Illness Date/Time: 05/03/25 17:49 Chief Complaint: Right upper quadrant pain Narrative: 84-year-old female past medical history of CKD 3, HTN, depression with anxiety, hyperlipidemia, COPD, GERD, presented to the emergency department on 05/03/2025 with complaints right upper abdominal pain for the past 3 days but the pain became severe this afternoon after eating lunch. Also endorses nausea but no vomiting. She is having bowel movements. Denies prior abdominal surgeries. Patient denies NSAID use and alcohol use. Does not have a hx of PUD. She is a former smoker. Patient describes the pain as a constant dull ache and increases after eating. ED course: Lab showed WBC 29, baseline CKD, lactic acid 2.4, lipase 380. UA shows trace leuko Esterase and wbc's [id number] pending CXR: No acute cardiopulmonary disease Abdominal pelvic CT: Nonobstructing renal calculi bilaterally. Esophageal thickening, diverticulosis without diverticulitis, and posterior extraluminal air adjacent to the duodenum; suspicious for perforated duodenal ulcer. No abscess noted. Patient was started on meropenem and NGT was placed in the ED. General surgery consulted and assessed patient in ED. 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 Internal hemorrhoids Sigmoid diverticulosis Melena BMI 26.0-26.9,adult Acute viral pharyngitis Right foot pain Vitamin D deficiency Seasonal allergic rhinitis History of kidney stones Low back pain radiating to left leg Mixed hyperlipidemia Depression with anxiety Urinary frequency Osteoarthritis involving multiple joints on both sides of body COPD exacerbation History of peptic ulcer History of tobacco abuse Surgical History Surgical History (Updated 05/03/25 @ 17:22 by Eugene Alexandra DO) No significant past surgical history Family History Family History Mother Hypertension Cerebrovascular accident, Onset Age: 72 Sibling Asthma Diabetes mellitus Father Acute myocardial infarction Patient's father is , Onset Age: 71 Family history of coronary artery disease Family history of congestive heart failure Grandparent Family history of malignant neoplasm Acute myocardial infarction Cerebrovascular accident Social History Social History Smoking packs per day: 2 Smoking cigarettes per day: 40.0 Years smoked: 40 Smoking pack-years: 80.00 Smoking status: Former smoker Second hand tobacco smoke exposure: No Additional smoking assessment comments: STATES QUIT 2007 Alcohol intake: never Substance use: never Substance use type: does not use Lack of Transportation: No Lack of Food: Never True Current Housing: Decline to Answer Concerned About Future Housing: Decline to Answer Difficulty Paying Gas/Electric Bills: Decline to Answer Difficulty Paying for Meds: Decline to Answer Currently Unemployed: Decline to Answer Education: High School Diploma/GED Difficulty w/ Childcare or Family Care: No Living arrangements: alone Occupation/Education: retired Gender identity (if verbalized by the patient): Female Spiritual care concerns: No Agree to blood products: Yes Meds Home Medications and Allergies Home Medications ?Medication ?Instructions ?Recorded ?Confirmed ?Type lactobacillus combination no.4 3 3,000 mmu cells PO DAILY 03/02/21 05/03/25 History billion cell capsule (Probiotic) inhalational spacing device #1 ea 12/06/21 05/03/25 Rx (Aerochamber MV spacer) conjugated estrogens 0.625 mg/gram 0.3125 mg vaginal DAILY #30 grams 11/24/22 05/03/25 Rx vaginal cream psyllium husk 0.4 gram capsule 0.4 g PO DAILY 01/30/23 05/03/25 History (Daily Fiber) [facility] Cancer center for Prolia #1 ea 08/07/23 04/29/25 Rx fluticasone propionate 50 2 spray intranasal BID #48 mL 11/22/23 05/03/25 Rx mcg/actuation nasal spray,suspension (Flonase Allergy Relief) albuterol sulfate 2.5 mg/3 mL See Rx Instructions .Route 11/29/23 05/03/25 Rx (0.083 %) solution for nebulization .COMPLEX #30 vials clobetasol 0.05 % topical cream 1 applic topical DAILY #60 grams 12/11/23 05/03/25 Rx cholecalciferol (vitamin D3) 1,250 1,250 mcg PO MONTHLY 09/03/24 05/03/25 History mcg (50,000 unit) capsule arformoterol 15 mcg/2 mL solution See Rx Instructions .Route 09/29/24 05/03/25 Rx for nebulization .COMPLEX #60 ea budesonide 0.5 mg/2 mL suspension See Rx Instructions .Route 09/29/24 05/03/25 Rx for nebulization .COMPLEX #60 ea revefenacin 175 mcg/3 mL solution See Rx Instructions .Route 11/05/24 05/03/25 Rx for nebulization (Jace) .COMPLEX #30 vials omeprazole 40 mg capsule,delayed 40 mg PO DAILY #90 caps 11/25/24 05/03/25 Rx release duloxetine 20 mg capsule,delayed 20 mg PO BID #60 caps 11/27/24 05/03/25 Rx release amiloride 5 mg-hydrochlorothiazide 1 tablet PO HS #90 tabs 02/04/25 05/03/25 Rx 50 mg tablet losartan 100 mg tablet 100 mg PO HS #90 tabs 04/09/25 05/03/25 Rx aspirin 81 mg tablet 81 mg PO DAILY 05/03/25 05/03/25 History Allergies Allergy/AdvReac Type Severity Reaction Status Date / Time amoxicillin Allergy Unknown Gastrointestinal Verified 05/03/25 13:03 Upset cefdinir Allergy Unknown Gastrointestinal Verified 05/03/25 13:03 Upset fosinopril Allergy Unknown Gastrointestinal Verified 05/03/25 13:03 Upset Sulfa (Sulfonamide Allergy Unknown Gastrointestinal Verified 05/03/25 13:03 Antibiotics) Upset sulfamethizole Allergy Unknown Gastrointestinal Verified 05/03/25 13:03 Upset trimethoprim Allergy Unknown Gastrointestinal Verified 05/03/25 13:03 Upset promethazine AdvReac Severe Jittery Verified 05/03/25 13:03 Vital Signs Vital Signs - 24 hr 05/03/25 13:06 05/03/25 16:21 05/03/25 17:06 Temperature 97.6 F Pulse Rate 82 100 99 Respiratory Rate 20 18 20 Blood Pressure 154/70 H 121/68 139/88 Pulse Oximetry 97 95 91 Oxygen Delivery Room Air H&P: Results Labs Labs: Short CBC 05/03/25 Range/Units 14:55 WBC 29.0 H (4.5-10.0) K/mm3 Hgb 14.3 (12.0-15.0) g/dL Hct 45.5 (37.0-47.0) % Plt Count 314 (150-375) k/mm3 BMP 05/03/25 14:55 Sodium 134 L Potassium 4.8 Chloride 103 Carbon Dioxide 24 BUN 35 H Creatinine 1.25 H Glucose 176 H Calcium 8.9 Liver Function 05/03/25 Range/Units 14:55 Total Bilirubin 0.7 (0.2-1.3) mg/dL AST 31 (14-36) U/L ALT 18 (6-35) U/L Alkaline Phosphatase 76 (38-126) U/L Albumin 4.1 (3.5-5.1) g/dL Urine 05/03/25 Range/Units 16:34 Urine Color Yellow (Yellow) Urine Appearance Clear (Clear) Urine pH 5.0 (5.0-9.0) Ur Specific [place] 1.041 H (1.001-1.035) Urine Protein Trace (Negative) mg/dL Urine Glucose (UA) Negative (Negative) mg/dL Assessment and Plan Assessment and plan (1) Duodenal perforation: Code(s): K63.1 - Perforation of intestine (nontraumatic) Status: Acute Assessment and Plan: Patient presented to the ED is abdominal pain that became severe today after eating. No episodes of emesis. Abdominal pelvic CT revealed posterior extraluminal air adjacent to the duodenum; suspicious for perforated duodenal ulcer. No abscess noted. -general surgery consulted -no plans for surgery at this time -NPO -NGT placed -Meropenem started due to patient's allergies to several antibiotics -pantoprazole 40 mg IVP q.12 -control pain with morphine p.r.n. (2) SIRS (systemic inflammatory response syndrome): Code(s): R65.10 - Systemic inflammatory response syndrome (SIRS) of non-infectious origin without acute organ dysfunction Status: Acute Assessment and Plan: meets SIRS criteria due to HR >90, WBC greater than 12 - 30 mL/kg = 1830 mL. 2 L total given in ED - suspected source: Perforated duodenal ulcer - started on meropenem on 05/03 - blood cultures drawn on 05/03 - UA: Culture pending. Currently covered with meropenem - CXR: No acute cardiopulmonary processes -see above for CT results regarding perforated duodenal ulcer. -trend CBC, BMP -check magnesium -follow lactic acid (3) GERD (gastroesophageal reflux disease): Qualifiers: Esophagitis bleeding: without hemorrhage Esophagitis presence: with esophagitis Qualified Code(s): K21.00 - Gastro-esophageal reflux disease with esophagitis, without bleeding Code(s): K21.9 - Gastro-esophageal reflux disease without esophagitis Status: Chronic Assessment and Plan: Omeprazole 40 mg at home with history of PUD -pantoprazole 40 mg IV q.12 (4) Chronic obstructive pulmonary disease: Qualifiers: COPD type: unspecified COPD Qualified Code(s): J44.9 - Chronic obstructive pulmonary disease, unspecified Code(s): J44.9 - Chronic obstructive pulmonary disease, unspecified Status: Chronic Assessment and Plan: Not currently in exacerbation. -albuterol nebulizer p.r.n. -arformoterol nebulizer b.i.d. -revefenacin nebulizer daily (5) Depression with anxiety: Code(s): F41.8 - Other specified anxiety disorders Status: Chronic Assessment and Plan: Continue duloxetine 20 mg b.i.d. (6) Essential (primary) hypertension: Code(s): I10 - Essential (primary) hypertension Status: Chronic Assessment and Plan: -continue amiloride 5 mg-hydrochlorothiazide 50 mg -duloxetine 20 mg b.i.d. Plan Diet: NPO GI prophylaxis: Pantoprazole mg b.i.d. DVT prophylaxis: SCDs lines/drains: PIV, NGT Fluids: 2 L bolus NS Code status: Full Quality VTE Prophylaxis VTE prophylaxis: mechanical ordered Hospitalist MIPS Advance Care Plan I have confirmed that the patient's Advanced Care Plan is present, code status is documented, or surrogate decision maker is listed in patient medical record.: Yes Medication Reconciliation I have utilized all available resources to obtain, update and review the patients current medications (includes all prescriptions, OTC, herbals, cannabis, and nutritional supplements).: Yes
[2025-05-03] MEDS: MEROPENEM 1 GM in SODIUM CHLORIDE 0.9% IV 100 ML 200 ML IVPB (18:09)
--- OUTSIDE RECORDS SUMMARY | 2025-05-03 18:30 | XMS_ITS | Clinical Summary ---
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 Active fluticasone propionate (FLONASE) 50 mcg/spray [place], Suspension nasal inhaler Administer 2 Sprays in [...] 2025 Insurance MEDICARE PART A AND B [employer]
--- OUTSIDE RECORDS SUMMARY | 2025-05-03 18:30 | XMS_ITS | Clinical Summary ---
Author Organization [facility] 8 [facility] Address [address] [place] [address] Care Team Providers Care Hardwood Floor Sander Name Role Phone Nubia Bradford MD Primary Care Provider [phone] Allergies Active Allergy Reactions Criticality Noted Date [...] T PO QD 4 7 Active FLUAD [id number], 67 YR UP,,PF, 45 mcg (15 mcg [...] Prevention Take 1 tablet by mouth. Active yxfhohxicxx-B3-Drr wellia serr 1,500-400-100 mg-unit-mg tablet Take by [...] T PO BID 0 8 Active FLUAD [id number], 67 YR UP,,PF, 45 mcg (15 mcg [...] on file Legal Sex Female 12:13 PM [employer] Gender Identity Not on file Sexual Orientation Not on file Obstetrics History Last Filed Vital Signs Vital Sign Reading Time Taken Comments Blood Pressure 153/68 01/17/2022 1:26 PM CDT Pulse 77 01/17/2022 1:26 PM CDT Temperature - - Respiratory Rate 16 01/17/2022 1:26 PM CDT Oxygen Saturation - - Inhaled Oxygen Concentration - - Weight 61.2 kg (135 lb) 09/17/2018 3:27 PM [employer] Height 162.6 cm (5' 4) 09/17/2018 3:27 PM [employer]NA[employer] Body Mass Index 23.17 09/17/2018 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
--- OUTSIDE RECORDS SUMMARY | 2025-05-03 18:30 | XMS_ITS | Encounter Summary ---
Author Organization [facility] Healthcare Address [address] [place] [address] Care Team Providers Care Reconciliation Accountant Name Role Phone Kennedy Benson MD Primary Care Provider [phone] Nubia Bradford MD Primary Care Provider [phone] Encounter Details Date Type Department Care Team (Late st Contact Info) Description 01/03/[address] 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
--- NOTE | 2025-05-03 18:40 | ADMGEN ---
This patient, Elisabet Quan, was admitted to [facility] Surg Room 311-01. Patient/family oriented to hospital policies and general routines including ID bracelet, bed and alarms, visiting hours, pain management, procedures, bathroom and other care routines, personal items, smoking policy, room service/diet, and visiting hours. Information on how to activate the Rapid Response Team has been discussed. Patient/Family are encouraged to report perceived risks to care and to ask questions if they do not understand what they are told or what they should do.
[2025-05-03] MEDS: SODIUM CHLORIDE 0.9% IV 1,000 ML 125 ML IV CONT (19:01)
[2025-05-03 19:48] LABS: Magnesium 1.6 mg/dL (1.6-2.3)
[2025-05-03] MEDS: LOSARTAN POTASSIUM 100 MG TABLET PO (21:35)
[2025-05-03] MEDS: BUDESONIDE RESPULE NEB 0.5 MG/2 ML AMP NEBULIZE (22:27)
[2025-05-03 23:40] LABS: Procalcitonin 5.2 ng/mL
[2025-05-04] VITALS (19 sets, daily range): BP systolic 112–146; BP diastolic 50–72; PULSE 66–101; RESP 12–19; TEMP 36.1–37.1; O2SAT 91–100
[2025-05-04] MEDS: MORPHINE SULFATE (*CRX) 4 MG/ML INJ 2 MG IV PUSH ×2 (00:07→11:17)
[2025-05-04] MEDS: MORPHINE SULFATE (*CRX) 4 MG/ML INJ IV PUSH (01:34)
[2025-05-04] MEDS: SODIUM CHLORIDE 0.9% IV 1,000 ML 125 ML IV CONT ×2 (01:57→13:07)
--- NOTE | 2025-05-04 03:40 | PC.NURSE ---
05/03/252099: Patient offered scheduled dose Hydrochlorothiazide 50mg PO. Patient refused medication, stated, That's not one of my home medication, I'm not familiar with name of that medication. Patient educated on the purpose of the medication to low blood pressures in addition is a diuretic and the potential risk of increasing heart rar and blood pressure if not taken. Patient verified understanding but continued to refuse. Wilbert Ang APRN notified and acknowledged refusal. Will continue to monitor vitals ans reasses.
[2025-05-04] MEDS: HYDROmorphone HCL INJ (*CRX) 1 MG/ML SYR 0.5 MG IV PUSH ×2 (04:33→06:37)
[2025-05-04] MEDS: MEROPENEM 1 GM in SODIUM CHLORIDE 0.9% IV 100 ML 200 ML IVPB ×2 (05:36→17:54)
[2025-05-04 06:45] LABS: Hematocrit 39.7 % (37.0-47.0); Hemoglobin 12.2 g/dL (12.0-15.0); Immature Granulocyte Percent A 1.2 % (0-0.5); Lymphocytes Absolute Auto 0.46 K/mm3 (0.9-3.2); Mean Corpuscular HGB Conc 30.7 g/dl (32-36); Mean Corpuscular Hemoglobin 27.5 pg (26-34); Mean Corpuscular Volume 89.4 fl (80-100); Nucleated Red Blood Cells Absolute Auto 0.000 K/mm3 (0.0-0.012); Nucleated Red Blood Cells Perc 0.0 % (0.0-0.2); Platelet Count Result 224 k/mm3 (150-375); Red Blood Count 4.44 M/mm3 (4.2-5.4); White Blood Count 24.1 K/mm3 (4.5-10.0)
--- NOTE | 2025-05-04 07:36 | P.PNIM_ITS ---
Progress Note: A&P Assessment and Plan (1) Duodenal perforation: Code(s): K63.1 - Perforation of intestine (nontraumatic) Status: Acute Assessment and Plan: Patient presented to the ED is abdominal pain that became severe today after eating. No episodes of emesis. Abdominal pelvic CT revealed posterior extraluminal air adjacent to the duodenum; suspicious for perforated duodenal ulcer. No abscess noted. * NPO * NGT placed * Meropenem started due to patient's allergies to several antibiotics * pantoprazole 40 mg IVP q.12 * control pain with morphine p.r.n. * general surgery consulted * no plans for surgery at this time * Follow surgery for any further recommendations * Upper GI series: External contrast extravasation through a small perforated ulcer at the duodenal bulb. Small sliding-type hiatal hernia. (2) SIRS (systemic inflammatory response syndrome): Code(s): R65.10 - Systemic inflammatory response syndrome (SIRS) of non-infectious origin without acute organ dysfunction Status: Acute Assessment and Plan: meets SIRS criteria due to HR >90, WBC greater than 12 * 30 mL/kg = 1830 mL. 2 L total given in ED * suspected source: Perforated duodenal ulcer * started on meropenem on 05/03 * blood cultures drawn on 05/03 * UA: Culture pending. Currently covered with meropenem * CXR: No acute cardiopulmonary processes * see above for CT results regarding perforated duodenal ulcer. * trend CBC, BMP * Mg 1.6 * lactic acid 0.9 (3) GERD (gastroesophageal reflux disease): Qualifiers: Esophagitis bleeding: without hemorrhage Esophagitis presence: with esophagitis Qualified Code(s): K21.00 - Gastro-esophageal reflux disease with esophagitis, without bleeding Code(s): K21.9 - Gastro-esophageal reflux disease without esophagitis Status: Chronic Assessment and Plan: Omeprazole 40 mg at home with history of PUD * pantoprazole 40 mg IV q.12 (4) Chronic obstructive pulmonary disease: Qualifiers: COPD type: unspecified COPD Qualified Code(s): J44.9 - Chronic obstructive pulmonary disease, unspecified Code(s): J44.9 - Chronic obstructive pulmonary disease, unspecified Status: Chronic Assessment and Plan: * Not currently in exacerbation. * albuterol nebulizer p.r.n. * arformoterol nebulizer b.i.d. * revefenacin nebulizer daily (5) Depression with anxiety: Code(s): F41.8 - Other specified anxiety disorders Status: Chronic Assessment and Plan: * Continue duloxetine 20 mg b.i.d. (6) Essential (primary) hypertension: Code(s): I10 - Essential (primary) hypertension Status: Chronic Assessment and Plan: * continue amiloride 5 mg-hydrochlorothiazide 50 mg * duloxetine 20 mg b.i.d. (7) Abnormal urinalysis: Code(s): R82.90 - Unspecified abnormal findings in urine Status: Acute Assessment and Plan: - UA: Trace leukocyte esterase, 11-20 WBCs - UC obtained on 05/03 - started on meropenem - Bladder scan p.r.n. Plan Diet: NPO GI prophylaxis: Pantoprazole mg b.i.d. DVT prophylaxis: SCDs lines/drains: PIV, NGT Fluids: 2 L bolus NS Code status: Full Subjective Date/time seen: 05/04/25 07:36 Interval history: 84-year-old female past medical history of CKD 3, HTN, depression with anxiety, hyperlipidemia, COPD, GERD, presented to the emergency department on 05/03/2025 with complaints right upper abdominal pain for the past 3 days but the pain became severe this afternoon after eating lunch. 05/04/2025 Patient sititng comfortably in bed at time of exam. Denies any chest pain, shortness of breath, n/v. Still having abdominal pain w/ movement. Complaining of urinary pressure and requesting urinary catheter. Bladder scan shows approx 150 mls. Review of Systems Review of Systems: All systems reviewed & are unremarkable except as noted in HPI and below Exam Narrative: GENERAL: non-toxic appearing, in no acute distress. HEAD: Normocephalic, atraumatic. EYES: PERRLA. Conjunctivae clear. NOSE: NGT in place to LIS THROAT: Pharynx clear, no exudate. NECK: Trachea midline. No adenopathy, no masses. RESPIRATORY: Airway patent, respirations nonlabored. CTA. CARDIOVASCULAR: Regular rate and rhythm. BREASTS: Defer GASTROINTESTINAL: Abdomen is soft and mildly tender with palpation to the right upper quadrant. No organomegaly. Bowel sounds normal in all quadrants. GENITOURINARY: Defer MUSCULOSKELETAL: Moves all extremities. No gross deformities. Moves all extremities well. No calf tenderness. SKIN: Warm, dry, normal color. NEURO: A&O X4. Speech clear PSYCHIATRIC: Normal interaction Objective Data Vital Signs Vital Signs: Vital Signs - 24 hr 05/03/25 13:06 05/03/25 16:21 05/03/25 17:06 Temperature 97.6 F Pulse Rate 82 100 99 Respiratory Rate 20 18 20 Blood Pressure 154/70 H 121/68 139/88 Pulse Oximetry 97 95 91 Oxygen Delivery Room Air Oxygen Flow Rate 05/03/25 18:25 05/03/25 20:00 05/03/25 22:19 Temperature 98.7 F Pulse Rate 105 H Respiratory Rate 16 Blood Pressure 168/74 H Pulse Oximetry 93 93 93 Oxygen Delivery Nasal Cannula Nasal Cannula Oxygen Flow Rate 2 2 05/03/25 22:21 05/03/25 22:29 05/04/25 06:00 Temperature 98.4 F 98.2 F Pulse Rate 94 102 H 98 Respiratory Rate 20 20 18 Blood Pressure 137/44 L 133/59 L Pulse Oximetry 100 100 Oxygen Delivery Oxygen Flow Rate Intake/Output Intake/Output: Intake & Output 05/01/25 05/02/25 05/03/25 05/04/25 23:59 23:59 23:59 23:59 Intake Total 1999 966.7 Output Total 50 Balance 1999 916.7 Meds/Results Medications: Active Medications Generic Name Dose Route Start Last Admin Trade Name Freq PRN Reason Stop Dose Admin Amiloride HCl 5 mg 05/03/25 21:00 05/03/25 21:36 Amiloride Hcl 5 Mg Tablet PO 5 mg HS EDDIE Administration Budesonide 0.5 mg 05/03/25 20:00 05/03/25 22:27 Budesonide Respule Neb 0.5 Mg/2 Ml Amp NEBULIZE 0.5 mg Q12HRT EDDIE Administration Clobetasol Propionate 1 applic 05/04/25 09:00 Clobetasol Propionate 0.05% Cream 15 Gm TOPICAL DAILY EDDIE Dextrose 12.5 gm 05/03/25 20:21 Dextrose 50% 25 Gm/50 Ml Syringe IV PUSH PRN PRN Hypoglycemia Protocol Duloxetine HCl 20 mg 05/03/25 19:35 05/03/25 21:33 Duloxetine Hcl 20 Mg Capsule.Dr PO 20 mg BID EDDIE Administration Fluticasone Propionate 2 spray 05/03/25 19:35 05/03/25 21:38 Fluticasone Propionate 0.05% Na Spr 16 Gm Btl (*Bkc) NASAL Not Given BID EDDIE Glucagon 1 mg 05/03/25 20:21 Glucagon For Inj 1 Mg Vial IM PRN PRN Hypoglycemia Protocol Glucose 15 gm 05/03/25 20:21 Glucose Oral Gel 15 Gm Of Glucse In 37.5 Gm Tube PO PRN PRN Hypoglycemia Protocol Hydrochlorothiazide 50 mg 05/03/25 21:00 05/03/25 21:33 Hydrochlorothiazide 25 Mg Tablet PO Not Given HS EDDIE Hydromorphone HCl 1 mg 05/04/25 06:40 Hydromorphone Hcl Inj (*Crx) 1 Mg/Ml Syr IV PUSH Q3H PRN Pain Rated 7-10 Meropenem 1 gm/ Sodium 100 mls @ 200 mls/hr 05/04/25 06:00 05/04/25 06:06 Chloride IVPB Infused Q12H EDDIE Infusion Sodium Chloride 1,000 mls @ 125 mls/hr 05/03/25 17:25 05/04/25 01:57 Normal Saline Iv IV CONT 125 mls/hr .Q8H EDDIE Administration Dextrose 1,000 mls @ 100 mls/hr 05/03/25 20:21 Dextrose 5% 1,000 Ml IVPB PRN PRN Hypoglycemia Protocol Losartan Potassium 100 mg 05/03/25 21:00 05/03/25 21:35 Losartan Potassium 100 Mg Tablet PO 100 mg HS EDDIE Administration Miscellaneous Information 1 each 05/04/25 00:01 Arformeterol Is Nonform; Can Pt Use From Home? XX 06/03/25 00:00 CLARIFY EDDIE Morphine Sulfate 2 mg 05/03/25 17:25 05/03/25 22:21 Morphine Sulfate (*Crx) 4 Mg/Ml Inj IV PUSH 2 mg Q2H PRN Administration Pain Rated Morphine Sulfate 4 mg 05/03/25 23:34 05/04/25 01:34 Morphine Sulfate (*Crx) 4 Mg/Ml Inj IV PUSH 4 mg Q2H PRN Administration Pain Rated 7-10 Non-Formulary Medication 0 mcg 05/03/25 19:30 Arformoterol .ROUTE 06/02/25 19:29 .COMPLEX EDDIE Non-Formulary Medication 0 mcg 05/03/25 19:30 Revefenacin [Yupelri] .ROUTE 06/02/25 19:29 .COMPLEX EDDIE Ondansetron HCl 4 mg 05/03/25 17:22 Ondansetron Inj 4 Mg/2 Ml Vial IV PUSH Q4H PRN Nausea Pantoprazole Sodium 40 mg 05/04/25 09:00 Pantoprazole Sodium Iv 40 Mg Vial IV PUSH Q12H [facility] Radiology Results: ITS Impressions Abdomen/Pelvis CT 05/03/25 16:07 IMPRESSION: Probable perforated duodenal ulcer. No abscess identified. Results discussed with the referring clinician immediately Abdomen X-Ray 05/03/25 17:36 Impression: 1. No acute abnormality. Labs Labs: Laboratory Results - last 24 hr 05/03/25 05/03/25 05/03/25 14:55 16:21 16:34 WBC 29.0 H RBC 5.19 Hgb 14.3 Hct 45.5 MCV 87.7 MCH 27.6 MCHC 31.4 L RDW 14.2 Plt Count 314 MPV 10.1 Immature Gran % (Auto) Not Reportable Neut % (Auto) Not Reportable Lymph % (Auto) Not Reportable [place] % (Auto) Not Reportable Eos % (Auto) Not Reportable Baso % (Auto) Not Reportable Lymph # (Auto) Not Reportable [place] # (Auto) Not Reportable Eos # (Auto) Not Reportable Baso # (Auto) Not Reportable Abs Immat Gran (auto) Not Reportable Absolute Neuts (auto) Not Reportable Absolute Nucleated RBC Not Reportable Total Counted 100 Neutrophils % (Manual) 88 H Band Neutrophils % 4 Lymphocytes % (Manual) 6.0 L Monocytes % (Manual) 2 L Nucleated RBC % Not Reportable Abs Neuts (Manual) 26.68 H Abs Lymphs (Manual) 1.74 Abs Monocytes (Manual) 0.58 Platelet Estimate Adequate Hypochromasia 1+ Anisocytosis 1+ Schistocytes None seen Sodium 134 L Potassium 4.8 Chloride 103 Carbon Dioxide 24 Anion Gap 7 BUN 35 H Creatinine 1.25 H Estim Creat Clear Calc 27 Estimated GFR 41 L Glucose 176 H POC Capillary Glucose Lactic Acid 2.4 H Calcium 8.9 Magnesium 1.6 Total Bilirubin 0.7 AST 31 ALT 18 Alkaline Phosphatase 76 Total Protein 7.2 Albumin 4.1 Lipase 380 H Procalcitonin Urine Color Yellow Urine Appearance Clear Urine pH 5.0 Ur Specific [place] 1.041 H Urine Protein Trace Urine Glucose (UA) Negative Urine Ketones Negative Ur Blood (Man) Negative Urine Nitrate Negative Urine Bilirubin Negative Urine Urobilinogen 0.2 Leukocyte Esterase Rfl Trace H Urine RBC 0-2 Urine WBC 11-20 H Ur Squamous Epith Cells None seen Urine Bacteria None seen Urine Casts 3-5 05/03/25 05/03/25 05/04/25 21:51 23:59 05:45 WBC RBC Hgb Hct MCV MCH MCHC RDW Plt Count MPV Immature Gran % (Auto) Neut % (Auto) Lymph % (Auto) [place] % (Auto) Eos % (Auto) Baso % (Auto) Lymph # (Auto) [place] # (Auto) Eos # (Auto) Baso # (Auto) Abs Immat Gran (auto) Absolute Neuts (auto) Absolute Nucleated RBC Total Counted Neutrophils % (Manual) Band Neutrophils % Lymphocytes % (Manual) Monocytes % (Manual) Nucleated RBC % Abs Neuts (Manual) Abs Lymphs (Manual) Abs Monocytes (Manual) Platelet Estimate Hypochromasia Anisocytosis Schistocytes Sodium Potassium Chloride Carbon Dioxide Anion Gap BUN Creatinine Estim Creat Clear Calc Estimated GFR Glucose POC Capillary Glucose 117 H Lactic Acid 3.4 H 0.9 Calcium Magnesium Total Bilirubin AST ALT Alkaline Phosphatase Total Protein Albumin Lipase Procalcitonin 5.2 Urine Color Urine Appearance Urine pH Ur Specific [place] Urine Protein Urine Glucose (UA) Urine Ketones Ur Blood (Man) Urine Nitrate Urine Bilirubin Urine Urobilinogen Leukocyte Esterase Rfl Urine RBC Urine WBC Ur Squamous Epith Cells Urine Bacteria Urine Casts 05/04/25 05:49 WBC RBC Hgb Hct MCV MCH MCHC RDW Plt Count MPV Immature Gran % (Auto) Neut % (Auto) Lymph % (Auto) [place] % (Auto) Eos % (Auto) Baso % (Auto) Lymph # (Auto) [place] # (Auto) Eos # (Auto) Baso # (Auto) Abs Immat Gran (auto) Absolute Neuts (auto) Absolute Nucleated RBC Total Counted Neutrophils % (Manual) Band Neutrophils % Lymphocytes % (Manual) Monocytes % (Manual) Nucleated RBC % Abs Neuts (Manual) Abs Lymphs (Manual) Abs Monocytes (Manual) Platelet Estimate Hypochromasia Anisocytosis Schistocytes Sodium Potassium Chloride Carbon Dioxide Anion Gap BUN Creatinine Estim Creat Clear Calc Estimated GFR Glucose POC Capillary Glucose 127 H Lactic Acid Calcium Magnesium Total Bilirubin AST ALT Alkaline Phosphatase Total Protein Albumin Lipase Procalcitonin Urine Color Urine Appearance Urine pH Ur Specific [place] Urine Protein Urine Glucose (UA) Urine Ketones Ur Blood (Man) Urine Nitrate Urine Bilirubin Urine Urobilinogen Leukocyte Esterase Rfl Urine RBC Urine WBC Ur Squamous Epith Cells Urine Bacteria Urine Casts Quality VTE Prophylaxis VTE prophylaxis: mechanical ordered
[2025-05-04 07:37] LABS: Anion Gap 5 mmol/L (4-12); Blood Urea Nitrogen 28 mg/dL (7-17); Calcium 7.3 mg/dL (8.4-10.2); Carbon Dioxide 24 mmol/L (22-30); Chloride 109 mmol/L (98-107); Estimated CRCL calculation 26 ml/min; Estimated Glomerular Filt Rate 40; Glucose 116 mg/dL (65-110); Potassium 4.7 mmol/L (3.4-5.0); Sodium 138 mmol/L (137-145)
[2025-05-04] MEDS: BUDESONIDE RESPULE NEB 0.5 MG/2 ML AMP NEBULIZE ×2 (07:43→19:24)
[2025-05-04] MEDS: PANTOPRAZOLE SODIUM IV 40 MG VIAL IV PUSH ×2 (08:13→20:04)
--- NOTE | 2025-05-04 11:05 | P.PNGS_ITS ---
Progress Note: A&P Assessment and Plan (1) Duodenal perforation: Code(s): K63.1 - Perforation of intestine (nontraumatic) Status: Acute Assessment and Plan: * Evidence of perforated duodenal ulcer on CT yesterday. Patient hemodynamically stable. Upper GI series today. Will follow for results. If no improvement, patient may need surgical intervention. * WBC 24.1. Continue meropenem (patient has several antibiotic allergies). * Continue Protonix Q12. Patient should remain NPO. (2) GERD (gastroesophageal reflux disease): Qualifiers: Esophagitis presence: with esophagitis Esophagitis bleeding: without hemorrhage Qualified Code(s): K21.00 - Gastro-esophageal reflux disease with esophagitis, without bleeding Code(s): K21.9 - Gastro-esophageal reflux disease without esophagitis Status: Chronic (3) Chronic obstructive pulmonary disease: Qualifiers: COPD type: unspecified COPD Qualified Code(s): J44.9 - Chronic obstructive pulmonary disease, unspecified Code(s): J44.9 - Chronic obstructive pulmonary disease, unspecified Status: Chronic (4) Essential (primary) hypertension: Code(s): I10 - Essential (primary) hypertension Status: Chronic Plan Discussed patient's case and plan of care with Dr. Alexandra. Subjective Subjective Date/Time Seen: 05/04/25 11:05 Patient reports: feels better, still having pain, no flatus, no bowel movement and afebrile Interval history: Patient doing well today. She states that pain is much better today, but that it still increases in severity when she moves or twists her abdomen. She also now complains of urinary pressure. She states that she feels like she needs to urinate, but that she can not. She did, however, urinate this morning. Exam Const: General: comfortable and no acute distress Eyes: General: appearance normal, both eyes and all related structures GI: Inspection: distended GI Palp: Yes Soft to palpation, Yes Tenderness to palpation present (GI) (RLQ) and No Guarding due to palpation present (GI) Auscultation: abnormal bowel sounds (hypoactive) Objective Data Vital Signs Vital Signs: Vital Signs - 24 hr 05/03/25 13:06 05/03/25 16:21 05/03/25 17:06 Temperature 97.6 F Pulse Rate 82 100 99 Respiratory Rate 20 18 20 Blood Pressure 154/70 H 121/68 139/88 Pulse Oximetry 97 95 91 Oxygen Delivery Room Air Oxygen Flow Rate Fraction of Inspired Oxygen 05/03/25 18:25 05/03/25 20:00 05/03/25 22:19 Temperature 98.7 F Pulse Rate 105 H Respiratory Rate 16 Blood Pressure 168/74 H Pulse Oximetry 93 93 93 Oxygen Delivery Nasal Cannula Nasal Cannula Oxygen Flow Rate 2 2 Fraction of Inspired Oxygen 05/03/25 22:21 05/03/25 22:29 05/04/25 06:00 Temperature 98.4 F 98.2 F Pulse Rate 94 102 H 98 Respiratory Rate 20 20 18 Blood Pressure 137/44 L 133/59 L Pulse Oximetry 100 100 Oxygen Delivery Oxygen Flow Rate Fraction of Inspired Oxygen 05/04/25 07:45 05/04/25 07:46 05/04/25 07:51 Temperature Pulse Rate 95 92 Respiratory Rate 19 19 Blood Pressure Pulse Oximetry 97 Oxygen Delivery Nasal Cannula Oxygen Flow Rate 2 Fraction of Inspired Oxygen 28 05/04/25 08:00 Temperature Pulse Rate Respiratory Rate Blood Pressure Pulse Oximetry Oxygen Delivery Room Air Oxygen Flow Rate Fraction of Inspired Oxygen Intake/Output Intake/Output: Intake & Output 05/01/25 05/02/25 05/03/25 05/04/25 23:59 23:59 23:59 23:59 Intake Total 1999 966.7 Output Total 50 Balance 1999 916.7 Meds/Results Medications: Active Medications Generic Name Dose Route Start Last Admin Trade Name Freq PRN Reason Stop Dose Admin Amiloride HCl 5 mg 05/03/25 21:00 05/03/25 21:36 Amiloride Hcl 5 Mg Tablet PO 5 mg HS EDDIE Administration Budesonide 0.5 mg 05/03/25 20:00 05/04/25 07:43 Budesonide Respule Neb 0.5 Mg/2 Ml Amp NEBULIZE 0.5 mg Q12HRT EDDIE Administration Clobetasol Propionate 1 applic 05/04/25 09:00 05/04/25 08:12 Clobetasol Propionate 0.05% Cream 15 Gm TOPICAL Not Given DAILY EDDIE Dextrose 12.5 gm 05/03/25 20:21 Dextrose 50% 25 Gm/50 Ml Syringe IV PUSH PRN PRN Hypoglycemia Protocol Duloxetine HCl 20 mg 05/03/25 19:35 05/03/25 21:33 Duloxetine Hcl 20 Mg Capsule. PO 20 mg BID EDDIE Administration Fluticasone Propionate 2 spray 05/03/25 19:35 05/04/25 08:12 Fluticasone Propionate 0.05% Na Spr 16 Gm Btl (*Bkc) NASAL Not Given BID EDDIE Glucagon 1 mg 05/03/25 20:21 Glucagon For Inj 1 Mg Vial IM PRN PRN Hypoglycemia Protocol Glucose 15 gm 05/03/25 20:21 Glucose Oral Gel 15 Gm Of Glucse In 37.5 Gm Tube PO PRN PRN Hypoglycemia Protocol Hydrochlorothiazide 50 mg 05/03/25 21:00 05/03/25 21:33 Hydrochlorothiazide 25 Mg Tablet PO Not Given HS EDDIE Hydromorphone HCl 1 mg 05/04/25 06:40 Hydromorphone Hcl Inj (*Crx) 1 Mg/Ml Syr IV PUSH Q3H PRN Pain Rated 7-10 Meropenem 1 gm/ Sodium 100 mls @ 200 mls/hr 05/04/25 06:00 05/04/25 06:06 Chloride IVPB Infused Q12H EDDIE Infusion Sodium Chloride 1,000 mls @ 125 mls/hr 05/03/25 17:25 05/04/25 01:57 Normal Saline Iv IV CONT 125 mls/hr .Q8H EDDIE Administration Dextrose 1,000 mls @ 100 mls/hr 05/03/25 20:21 Dextrose 5% 1,000 Ml IVPB PRN PRN Hypoglycemia Protocol Losartan Potassium 100 mg 05/03/25 21:00 05/03/25 21:35 Losartan Potassium 100 Mg Tablet PO 100 mg HS EDDIE Administration Miscellaneous Information 1 each 05/04/25 00:01 Arformeterol Is Nonform; Can Pt Use From Home? XX 06/03/25 00:00 CLARIFY EDDIE Morphine Sulfate 2 mg 05/03/25 17:25 05/03/25 22:21 Morphine Sulfate (*Crx) 4 Mg/Ml Inj IV PUSH 2 mg Q2H PRN Administration Pain Rated Morphine Sulfate 4 mg 05/03/25 23:34 05/04/25 01:34 Morphine Sulfate (*Crx) 4 Mg/Ml Inj IV PUSH 4 mg Q2H PRN Administration Pain Rated 7-10 Non-Formulary Medication 0 mcg 05/03/25 19:30 Arformoterol .ROUTE 06/02/25 19:29 .COMPLEX EDDIE Non-Formulary Medication 0 mcg 05/03/25 19:30 Revefenacin [Yupelri] .ROUTE 06/02/25 19:29 .COMPLEX EDDIE Ondansetron HCl 4 mg 05/03/25 17:22 Ondansetron Inj 4 Mg/2 Ml Vial IV PUSH Q4H PRN Nausea Pantoprazole Sodium 40 mg 05/04/25 09:00 05/04/25 08:13 Pantoprazole Sodium Iv 40 Mg Vial IV PUSH 40 mg Q12H EDDIE Administration Radiology Results: ITS Impressions Abdomen/Pelvis CT 05/03/25 16:07 IMPRESSION: Probable perforated duodenal ulcer. No abscess identified. Results discussed with the referring clinician immediately Abdomen X-Ray 05/03/25 17:36 Impression: 1. No acute abnormality. Labs Labs: Laboratory Results - last 24 hr 05/03/25 05/03/25 05/03/25 14:55 16:21 16:34 WBC 29.0 H RBC 5.19 Hgb 14.3 Hct 45.5 MCV 87.7 MCH 27.6 MCHC 31.4 L RDW 14.2 Plt Count 314 MPV 10.1 Immature Gran % (Auto) Not Reportable Neut % (Auto) Not Reportable Lymph % (Auto) Not Reportable [place] % (Auto) Not Reportable Eos % (Auto) Not Reportable Baso % (Auto) Not Reportable Lymph # (Auto) Not Reportable [place] # (Auto) Not Reportable Eos # (Auto) Not Reportable Baso # (Auto) Not Reportable Abs Immat Gran (auto) Not Reportable Absolute Neuts (auto) Not Reportable Absolute Nucleated RBC Not Reportable Total Counted 100 Neutrophils % (Manual) 88 H Band Neutrophils % 4 Lymphocytes % (Manual) 6.0 L Monocytes % (Manual) 2 L Nucleated RBC % Not Reportable Abs Neuts (Manual) 26.68 H Abs Lymphs (Manual) 1.74 Abs Monocytes (Manual) 0.58 Platelet Estimate Adequate Hypochromasia 1+ Anisocytosis 1+ Schistocytes None seen Sodium 134 L Potassium 4.8 Chloride 103 Carbon Dioxide 24 Anion Gap 7 BUN 35 H Creatinine 1.25 H Estim Creat Clear Calc 27 Estimated GFR 41 L Glucose 176 H POC Capillary Glucose Lactic Acid 2.4 H Calcium 8.9 Magnesium 1.6 Total Bilirubin 0.7 AST 31 ALT 18 Alkaline Phosphatase 76 Total Protein 7.2 Albumin 4.1 Lipase 380 H Procalcitonin Urine Color Yellow Urine Appearance Clear Urine pH 5.0 Ur Specific [place] 1.041 H Urine Protein Trace Urine Glucose (UA) Negative Urine Ketones Negative Ur Blood (Man) Negative Urine Nitrate Negative Urine Bilirubin Negative Urine Urobilinogen 0.2 Leukocyte Esterase Rfl Trace H Urine RBC 0-2 Urine WBC 11-20 H Ur Squamous Epith Cells None seen Urine Bacteria None seen Urine Casts 3-5 05/03/25 05/03/25 05/04/25 21:51 23:59 05:45 WBC 24.1 H RBC 4.44 Hgb 12.2 Hct 39.7 MCV 89.4 MCH 27.5 MCHC 30.7 L RDW 14.5 Plt Count 224 MPV 10.0 Immature Gran % (Auto) 1.2 H Neut % (Auto) 90.6 H Lymph % (Auto) 1.9 L [place] % (Auto) 6.1 Eos % (Auto) 0.0 Baso % (Auto) 0.2 Lymph # (Auto) 0.46 L [place] # (Auto) 1.5 H Eos # (Auto) 0.0 Baso # (Auto) 0.1 Abs Immat Gran (auto) 0.28 H Absolute Neuts (auto) 21.8 H Absolute Nucleated RBC 0.000 Total Counted Neutrophils % (Manual) Band Neutrophils % Lymphocytes % (Manual) Monocytes % (Manual) Nucleated RBC % 0.0 Abs Neuts (Manual) Abs Lymphs (Manual) Abs Monocytes (Manual) Platelet Estimate Hypochromasia Anisocytosis Schistocytes Sodium 138 Potassium 4.7 Chloride 109 H Carbon Dioxide 24 Anion Gap 5 BUN 28 H Creatinine 1.27 H Estim Creat Clear Calc 26 Estimated GFR 40 L Glucose 116 H POC Capillary Glucose 117 H Lactic Acid 3.4 H 0.9 Calcium 7.3 L Magnesium Total Bilirubin AST ALT Alkaline Phosphatase Total Protein Albumin Lipase Procalcitonin 5.2 Urine Color Urine Appearance Urine pH Ur Specific [place] Urine Protein Urine Glucose (UA) Urine Ketones Ur Blood (Man) Urine Nitrate Urine Bilirubin Urine Urobilinogen Leukocyte Esterase Rfl Urine RBC Urine WBC Ur Squamous Epith Cells Urine Bacteria Urine Casts 05/04/25 05:49 WBC RBC Hgb Hct MCV MCH MCHC RDW Plt Count MPV Immature Gran % (Auto) Neut % (Auto) Lymph % (Auto) [place] % (Auto) Eos % (Auto) Baso % (Auto) Lymph # (Auto) [place] # (Auto) Eos # (Auto) Baso # (Auto) Abs Immat Gran (auto) Absolute Neuts (auto) Absolute Nucleated RBC Total Counted Neutrophils % (Manual) Band Neutrophils % Lymphocytes % (Manual) Monocytes % (Manual) Nucleated RBC % Abs Neuts (Manual) Abs Lymphs (Manual) Abs Monocytes (Manual) Platelet Estimate Hypochromasia Anisocytosis Schistocytes Sodium Potassium Chloride Carbon Dioxide Anion Gap BUN Creatinine Estim Creat Clear Calc Estimated GFR Glucose POC Capillary Glucose 127 H Lactic Acid Calcium Magnesium Total Bilirubin AST ALT Alkaline Phosphatase Total Protein Albumin Lipase Procalcitonin Urine Color Urine Appearance Urine pH Ur Specific [place] Urine Protein Urine Glucose (UA) Urine Ketones Ur Blood (Man) Urine Nitrate Urine Bilirubin Urine Urobilinogen Leukocyte Esterase Rfl Urine RBC Urine WBC Ur Squamous Epith Cells Urine Bacteria Urine Casts
[2025-05-04] MEDS: HYDROmorphone HCL INJ (*CRX) 1 MG/ML SYR IV PUSH (13:08)
--- NOTE | 2025-05-04 15:26 | WPDHPUPDATE1 ---
History and Physical Update Update Date/Time: 05/04/25 15:26 History and Physical has been reviewed, including an updated exam of the patient. There are NO changes in the patient's condition. Risks, benefits, and alternatives have been discussed and questions answered. Patient agrees to proceed with procedure.
[2025-05-04] MEDS: BUPIVACAINE/EPINEPHRINE 0.5% 50 ML VIAL 30 ML INFILTRATE (16:13)
--- NOTE | 2025-05-04 17:00 | P.OP_ITS ---
Procedure Note - Detailed Date of Procedure 05/04/25 Pre-op Diagnosis Perforated duodenal ulcer Post-op Diagnosis Same Procedure Performed Laparoscopic repair of perforated duodenal ulcer with omental Dario patch Surgeon Eugene Alexandra, DO Anesthesia General and Local (0.5% bupivacaine with epinephrine) Indications This is an 84-year-old woman who presented to the emergency department on 05/03/2025 with acute onset of abdominal pain. She was noted to have an elevated white blood count and CT showed evidence of free air involving a few small bubbles right near the duodenum suspicious for perforated duodenal ulcer. There was no significant amount of free air or free fluid to suggest a gross perforation and she was hemodynamically stable. She was admitted and placed on broad-spectrum IV antibiotics and kept NPO with an NG tube in place. Her pain persisted throughout the night and an upper GI was obtained this morning which still showed evidence of a perforation. Discussions were then made with the patient about treatment options and decision was made to proceed with laparoscopic repair of perforated duodenal ulcer, possible open. Findings Laparoscopic repair of perforated duodenal ulcer was performed. The patient had evidence of perforation with a scant amount of fluid in the right upper quadrant and some phlegmonous changes to the surface of the liver and peritoneum of the abdominal wall. The perforation was clearly visualized once the liver was gently retracted anterior. This appeared to be a 2 mm perforation on the anterior surface of the 1st portion of the duodenum. The perforation was repaired using 2-0 Vicryl simple interrupted sutures and then an omental Dario patch was performed. The abdomen was irrigated with a L of sterile saline and then a 15 round Joseph drain was placed over the anterior surface of the duodenum and right upper quadrant. No specimens were obtained for pathology. Description of Procedure Procedure as well as risks, benefits, and alternatives were discussed with the patient. Written consent was obtained and placed in chart prior to procedure. Patient was brought back to surgical suite. She was placed supine on operating table. Time-out was done to confirm patient and procedure. She was then intubated by the anesthesia department. Her abdomen was prepped and draped in sterile fashion using chlorhexidine prep. A 5 mm incision was made just to the left of the umbilicus and a 5 mm Optiview trocar was advanced through the abdominal layers under direct visualization. Once inside the abdominal cavity, carbon dioxide insufflation was used to create a pneumoperitoneum. The camera was inserted the abdomen was inspected. There was some omentum adherent in the right upper quadrant near the inferior edge of the liver but no other significant abnormalities were noted at 1st. Patient was placed in reverse Trendelenburg position. A 5 mm incision was made in the left upper quadrant and a 5 mm trocar was inserted under direct visualization. Another 5 mm incision was made in the right upper quadrant a 5 mm trocar was inserted under direct visualization. A 11 mm incision was made in the right lateral abdomen and an 11 mm trocar was inserted under direct visualization. A carefully inspected the abdomen. The omentum was gently retracted from the right upper quadrant and there were some phlegmonous changes identified along the right lobe of the liver. The liver was gently retracted anteriorly and the duodenum was carefully inspected. The area of perforation was identified at the 1st portion of the duodenum on the anterior surface. There was some bilious fluid draining from this perforation. Perforation only measured about 2 mm. This was repaired using 2-0 Vicryl simple interrupted sutures placed laparoscopically. The repair was inspected and no further leakage was identified. I then irrigated this area gently using sterile saline. I then identified an area of omentum to bring up over the area of perforation. A 2 0 silk suture was placed wide just medial and lateral to the area of perforation and the piece of omentum was placed underneath the suture and then the suture was tied down in place to patch the omentum over the area of perforation. This appeared secure. The abdomen was then further irrigated with about 1 L of sterile saline. The patient was flattened out in bed and the pelvis was inspected and irrigated also. No further abnormalities were identified. A 15 round Joseph drain was then placed through the right upper quadrant port site and advanced into the right upper quadrant and directly over the duodenum. The drain was then secured in place using a 3-0 nylon drain stitch. The 11 mm port was then removed and a Praneeth- Tanesha cone was used to approximate the fascia using an 0 Vicryl simple interrupted suture. The remaining ports were then removed under direct visualization and the pneumoperitoneum was released. 0.5% bupivacaine with epinephrine was infiltrated locally around each of the incisions. The skin of the incisions then approximated using 4-0 Monocryl subcuticular suture. Exofin glue was applied on top. A drain sponge was placed around the drain site f ollowed by tape. The patient was then awakened from anesthesia, extubated, and transferred to recovery. Estimated Blood Loss 10 Drains Yes (15 round Joseph drain) Complications No immediate complications Condition Stable Disposition Floor [facility] Billing Surgery - Charge Forward: Surgery Billing
[2025-05-04] MEDS: LACTATED RINGERS 1,000 ML 30 ML IV CONT (17:05)
[2025-05-04] MEDS: MICAFUNGIN SODIUM 100 MG in SODIUM CHLORIDE 0.9% IV 100 ML IVPB (19:12)
[2025-05-05] VITALS (11 sets, daily range): BP systolic 110–150; BP diastolic 56–93; PULSE 75–96; RESP 12–20; TEMP 35.7–37.4; O2SAT 93–98
[2025-05-05] MEDS: SODIUM CHLORIDE 0.9% IV 1,000 ML 125 ML IV CONT ×2 (02:50→12:21)
[2025-05-05] MEDS: HYDROmorphone HCL INJ (*CRX) 1 MG/ML SYR IV PUSH ×3 (03:52→20:34)
[2025-05-05] MEDS: MEROPENEM 1 GM in SODIUM CHLORIDE 0.9% IV 100 ML 200 ML IVPB ×2 (05:49→17:26)
[2025-05-05 06:37] LABS: Hematocrit 33.9 % (37.0-47.0); Hemoglobin 10.3 g/dL (12.0-15.0); Mean Corpuscular HGB Conc 30.4 g/dl (32-36); Mean Corpuscular Hemoglobin 27.8 pg (26-34); Mean Corpuscular Volume 91.4 fl (80-100); Platelet Count Result 174 k/mm3 (150-375); Red Blood Count 3.71 M/mm3 (4.2-5.4); White Blood Count 20.5 K/mm3 (4.5-10.0)
[2025-05-05 07:02] LABS: Anion Gap 4 mmol/L (4-12); Blood Urea Nitrogen 32 mg/dL (7-17); Calcium 6.6 mg/dL (8.4-10.2); Carbon Dioxide 22 mmol/L (22-30); Chloride 114 mmol/L (98-107); Estimated CRCL calculation 25 ml/min; Estimated Glomerular Filt Rate 38; Glucose 100 mg/dL (65-110); Potassium 4.6 mmol/L (3.4-5.0); Sodium 140 mmol/L (137-145)
--- NOTE | 2025-05-05 08:19 | P.PNIM_ITS ---
Progress Note: A&P Assessment and Plan (1) Duodenal perforation: Code(s): K63.1 - Perforation of intestine (nontraumatic) Status: Acute Assessment and Plan: Patient presented to the ED is abdominal pain that became severe today after eating. No episodes of emesis. Abdominal pelvic CT revealed posterior extraluminal air adjacent to the duodenum; suspicious for perforated duodenal ulcer. No abscess noted. * NPO * NGT placed * Meropenem started due to patient's allergies to several antibiotics * pantoprazole 40 mg IVP q.12 * control pain with morphine p.r.n. * general surgery consulted * no plans for surgery at this time * Follow surgery for any further recommendations * Upper GI series: External contrast extravasation through a small perforated ulcer at the duodenal bulb. Small sliding-type hiatal hernia. * Post op (05/05/25) Laparoscopic repair of perforated duodenal ulcer with omental Dario patch. * Patient tolerated procedure well, continue NPO along with NG tube suction * Denies any bowel movement or flatus, continue to monitor and encourage ambulation (2) SIRS (systemic inflammatory response syndrome): Code(s): R65.10 - Systemic inflammatory response syndrome (SIRS) of non-infectious origin without acute organ dysfunction Status: Acute Assessment and Plan: meets SIRS criteria due to HR >90, WBC greater than 12 * 30 mL/kg = 1830 mL. 2 L total given in ED * suspected source: Perforated duodenal ulcer * started on meropenem on 05/03 * blood cultures drawn on 05/03 * UA: Culture pending. Currently covered with meropenem * CXR: No acute cardiopulmonary processes * see above for CT results regarding perforated duodenal ulcer. * trend CBC, BMP * Mg 1.6 * lactic acid 0.9 * Leukocytosis improving, WBC 20.5 (3) GERD (gastroesophageal reflux disease): Qualifiers: Esophagitis bleeding: without hemorrhage Esophagitis presence: with esophagitis Qualified Code(s): K21.00 - Gastro-esophageal reflux disease with esophagitis, without bleeding Code(s): K21.9 - Gastro-esophageal reflux disease without esophagitis Status: Chronic Assessment and Plan: * Omeprazole 40 mg at home with history of PUD * pantoprazole 40 mg IV q.12 (4) Chronic obstructive pulmonary disease: Qualifiers: COPD type: unspecified COPD Qualified Code(s): J44.9 - Chronic obstructive pulmonary disease, unspecified Code(s): J44.9 - Chronic obstructive pulmonary disease, unspecified Status: Chronic Assessment and Plan: * Not currently in exacerbation. * albuterol nebulizer p.r.n. * arformoterol nebulizer b.i.d. * revefenacin nebulizer daily (5) Depression with anxiety: Code(s): F41.8 - Other specified anxiety disorders Status: Chronic Assessment and Plan: * Continue duloxetine 20 mg b.i.d. (6) Essential (primary) hypertension: Code(s): I10 - Essential (primary) hypertension Status: Chronic Assessment and Plan: * continue amiloride 5 mg-hydrochlorothiazide 50 mg * duloxetine 20 mg b.i.d. (7) Abnormal urinalysis: Code(s): R82.90 - Unspecified abnormal findings in urine Status: Acute Assessment and Plan: - UA: Trace leukocyte esterase, 11-20 WBCs - UC obtained on 05/03 - started on meropenem - Bladder scan p.r.n. Plan Diet: NPO GI prophylaxis: Pantoprazole mg b.i.d. DVT prophylaxis: SCDs lines/drains: PIV, NGT Fluids: 2 L bolus NS Code status: Full Subjective Date/time seen: 05/05/25 08:19 Interval history: 84-year-old female past medical history of CKD 3, HTN, depression with anxiety, hyperlipidemia, COPD, GERD, presented to the emergency department on 05/03/2025 with complaints right upper abdominal pain for the past 3 days but the pain became severe this afternoon after eating lunch. 05/05/2025 Patient sititng comfortably in bed at time of exam. Post op (05/05/25) Laparoscopic repair of perforated duodenal ulcer with omental Dario patch. Patient tolerated the procedure well, reports significant improvement in abdominal pain today. Pending continue NPO with NG suction today along with bowel rest. Continue p.r.n. pain control with Dilaudid. Leukocytosis continues to downtrend. Review of Systems Review of Systems: All systems reviewed & are unremarkable except as noted in HPI and below Exam Narrative: GENERAL: non-toxic appearing, in no acute distress. HEAD: Normocephalic, atraumatic. EYES: PERRLA. Conjunctivae clear. NOSE: NGT in place to LIS THROAT: Pharynx clear, no exudate. NECK: Trachea midline. No adenopathy, no masses. RESPIRATORY: Airway patent, respirations nonlabored. CTA. CARDIOVASCULAR: Regular rate and rhythm. BREASTS: Defer GASTROINTESTINAL: NG tube still in place. Abdomen is soft and mildly tender with palpation to the right upper quadrant. No organomegaly. Bowel sounds norm al in all quadrants. GENITOURINARY: Urine catheter patent, draining MUSCULOSKELETAL: Moves all extremities. No gross deformities. Moves all extremities well. No calf tenderness. SKIN: Incisions clean and dry, intact, minimal bruising. Warm, dry, normal color. NEURO: A&O X4. Speech clear PSYCHIATRIC: Normal interaction Objective Data Vital Signs Vital Signs: Vital Signs - 24 hr 05/04/25 15:10 05/04/25 17:05 05/04/25 17:15 Temperature 97.8 F 97.1 F L Pulse Rate 66 85 90 Respiratory Rate 18 12 14 Blood Pressure 146/60 H 140/66 145/61 H Pulse Oximetry 92 100 100 Oxygen Delivery Room Air Simple Face Mask Simple Face Mask Oxygen Flow Rate 8 8 05/04/25 17:30 05/04/25 17:45 05/04/25 18:00 Temperature 97.7 F Pulse Rate 93 91 91 Respiratory Rate 14 14 12 Blood Pressure 114/72 122/66 117/64 Pulse Oximetry 94 92 92 Oxygen Delivery Room Air Room Air Room Air Oxygen Flow Rate 05/04/25 18:14 05/04/25 18:17 05/04/25 18:27 Temperature 98.1 F 97.2 F L Pulse Rate 87 89 94 Respiratory Rate 18 12 18 Blood Pressure 112/61 126/59 L 127/55 L Pulse Oximetry 91 92 95 Oxygen Delivery Room Air Room Air Oxygen Flow Rate 05/04/25 18:45 05/04/25 19:05 05/04/25 19:24 Temperature 98.8 F 97.7 F Pulse Rate 89 94 90 Respiratory Rate 17 14 18 Blood Pressure 116/57 L 119/51 L Pulse Oximetry 93 94 Oxygen Delivery Oxygen Flow Rate 05/04/25 19:24 05/04/25 19:35 05/04/25 20:00 Temperature Pulse Rate 93 Respiratory Rate 18 Blood Pressure Pulse Oximetry 92 Oxygen Delivery Room Air Room Air Oxygen Flow Rate 05/04/25 20:05 05/05/25 00:05 05/05/25 04:05 Temperature 98.1 F 97.5 F L 97.6 F Pulse Rate 90 96 82 Respiratory Rate 14 14 18 Blood Pressure 121/50 L 110/57 L 142/70 H Pulse Oximetry 95 93 93 Oxygen Delivery Oxygen Flow Rate Intake/Output Intake/Output: Intake & Output 05/02/25 05/03/25 05/04/25 05/05/25 23:59 23:59 23:59 23:59 Intake Total 1999 2216.7 1000 Output Total 105 350 Balance 1999 2111.7 650 Meds/Results Medications: Active Medications Generic Name Dose Route Start Last Admin Trade Name Freq PRN Reason Stop Dose Admin Budesonide 0.5 mg 05/03/25 20:00 05/04/25 19:24 Budesonide Respule Neb 0.5 Mg/2 Ml Amp NEBULIZE 0.5 mg Q12HRT EDDIE Administration Clobetasol Propionate 1 applic 05/04/25 09:00 05/04/25 08:12 Clobetasol Propionate 0.05% Cream 15 Gm TOPICAL Not Given DAILY [facility] Dextrose 12.5 gm 05/03/25 20:21 Dextrose 50% 25 Gm/50 Ml Syringe IV PUSH PRN PRN Hypoglycemia Protocol Enoxaparin Sodium 30 mg 05/05/25 09:00 Enoxaparin 30 Mg/0.3 Ml Syringe SUB-Q DAILY [facility] Fluticasone Propionate 2 spray 05/03/25 19:35 05/04/25 18:30 Fluticasone Propionate 0.05% Na Spr 16 Gm Btl (*Bkc) NASAL Not Given BID [facility] Glucagon 1 mg 05/03/25 20:21 Glucagon For Inj 1 Mg Vial IM PRN PRN Hypoglycemia Protocol Glucose 15 gm 05/03/25 20:21 Glucose Oral Gel 15 Gm Of Glucse In 37.5 Gm Tube PO PRN PRN Hypoglycemia Protocol Hydromorphone HCl 1 mg 05/04/25 18:20 05/05/25 05:48 Hydromorphone Hcl Inj (*Crx) 1 Mg/Ml Syr IV PUSH 1 mg Q2H PRN Administration Breakthrough Pain Rated 7-10 or NPO Hydromorphone HCl 0.5 mg 05/04/25 18:20 Hydromorphone Hcl Inj (*Crx) 1 Mg/Ml Syr IV PUSH Q2H PRN Breakthrough Pain Rated 4-6 or NPO Meropenem 1 gm/ Sodium 100 mls @ 200 mls/hr 05/04/25 06:00 05/05/25 05:49 Chloride IVPB 200 mls/hr Q12H EDDIE Administration Sodium Chloride 1,000 mls @ 125 mls/hr 05/03/25 17:25 05/05/25 02:50 Normal Saline Iv IV CONT 125 mls/hr .Q8H EDDIE Administration Dextrose 1,000 mls @ 100 mls/hr 05/03/25 20:21 Dextrose 5% 1,000 Ml IVPB PRN PRN Hypoglycemia Protocol Micafungin Sodium 100 mg/ 100 mls @ 100 mls/hr 05/04/25 18:20 05/04/25 20:12 Sodium Chloride IVPB Infused DAILY EDDIE Infusion Miscellaneous Information 1 each 05/04/25 00:01 Arformeterol Is Nonform; Can Pt Use From Home? XX 06/03/25 00:00 CLARIFY EDDIE Non-Formulary Medication 0 mcg 05/03/25 19:30 Arformoterol .ROUTE 06/02/25 19:29 .COMPLEX EDDIE Non-Formulary Medication 0 mcg 05/03/25 19:30 Revefenacin [Yupelri] .ROUTE 06/02/25 19:29 .COMPLEX EDDIE Ondansetron HCl 4 mg 05/03/25 17:22 Ondansetron Inj 4 Mg/2 Ml Vial IV PUSH Q4H PRN Nausea Pantoprazole Sodium 40 mg 05/04/25 09:00 05/04/25 20:04 Pantoprazole Sodium Iv 40 Mg Vial IV PUSH 40 mg Q12H EDDIE Administration Radiology Results: ITS Impressions Abdomen/Pelvis CT 05/03/25 16:07 IMPRESSION: Probable perforated duodenal ulcer. No abscess identified. Results discussed with the referring clinician immediately Abdomen X-Ray 05/03/25 17:36 Impression: 1. No acute abnormality. Upper GI Series 05/04/25 12:42 IMPRESSION: 1. External contrast extravasation through a small perforated ulcer at the duodenal bulb. 2. Small sliding-type hiatal hernia. Labs Labs: Laboratory Results - last 24 hr 05/04/25 05/04/25 05/04/25 11:52 15:31 17:42 WBC RBC Hgb Hct MCV MCH MCHC RDW Plt Count MPV Sodium Potassium Chloride Carbon Dioxide Anion Gap BUN Creatinine Estim Creat Clear Calc Estimated GFR Glucose POC Capillary Glucose 103 87 94 Calcium 05/05/25 05/05/25 05/05/25 00:04 05:37 06:05 WBC 20.5 H RBC 3.71 L Hgb 10.3 L Hct 33.9 L MCV 91.4 MCH 27.8 MCHC 30.4 L RDW 14.6 H Plt Count 174 MPV 10.3 Sodium 140 Potassium 4.6 Chloride 114 H Carbon Dioxide 22 Anion Gap 4 BUN 32 H Creatinine 1.35 H Estim Creat Clear Calc 25 Estimated GFR 38 L Glucose 100 POC Capillary Glucose 103 95 Calcium 6.6 L Quality VTE Prophylaxis VTE prophylaxis: mechanical ordered
[2025-05-05] MEDS: PANTOPRAZOLE SODIUM IV 40 MG VIAL IV PUSH ×2 (08:25→20:34)
[2025-05-05] MEDS: MICAFUNGIN SODIUM 100 MG in SODIUM CHLORIDE 0.9% IV 100 ML IVPB (08:25)
[2025-05-05] MEDS: ENOXAPARIN 30 MG/0.3 ML SYRINGE SUB-Q (08:26)
[2025-05-05] MEDS: BUDESONIDE RESPULE NEB 0.5 MG/2 ML AMP NEBULIZE ×2 (10:25→19:53)
[2025-05-05] MEDS: HYDROmorphone HCL INJ (*CRX) 1 MG/ML SYR 0.5 MG IV PUSH ×2 (10:54→16:46)
--- NOTE | 2025-05-05 11:17 | P.PNGS_ITS ---
Progress Note: A&P Assessment and Plan (1) Duodenal perforation: Code(s): K63.1 - Perforation of intestine (nontraumatic) Status: Acute Assessment and Plan: * Pod 1 status post laparoscopic repair of perforated duodenal ulcer with omental Dario patch. Patient tolerated surgery well. Voiding appropriately with PureWick. Still NPO. Continue bowel rest and NG suction today. * hemodynamically stable. WBC 20.5, down from 24.1. Continue meropenem and micafungin (patient has several antibiotic allergies). * Continue Protonix Q12. * Encouraged ambulatioon and out of bed. (2) GERD (gastroesophageal reflux disease): Qualifiers: Esophagitis presence: with esophagitis Esophagitis bleeding: without hemorrhage Qualified Code(s): K21.00 - Gastro-esophageal reflux disease with esophagitis, without bleeding Code(s): K21.9 - Gastro-esophageal reflux disease without esophagitis Status: Chronic (3) Chronic obstructive pulmonary disease: Qualifiers: COPD type: unspecified COPD Qualified Code(s): J44.9 - Chronic obstructive pulmonary disease, unspecified Code(s): J44.9 - Chronic obstructive pulmonary disease, unspecified Status: Chronic (4) Essential (primary) hypertension: Code(s): I10 - Essential (primary) hypertension Status: Chronic Plan Discussed patient's case and plan of care with Dr. Alexandra. Subjective Subjective Date/Time Seen: 05/05/25 11:17 Post Op day: 1 (Laparoscopic repair of perforated duodenal ulcer with omental Dario patch) Patient reports: no new complaints, feels better, no flatus, no bowel movement and afebrile Interval history: Patient is doing well today. She is tolerating pain with dilaudid. No BM or flatus yet. WBC slightly decreased at 20.5. Exam Const: General: comfortable and no acute distress GI: Other: incisions are clean and dry with glue intact. Minimal bruising. Drain in place with serosanguineous fluid in the bulb. NG in place and draining appropriately. Urinary Catheter: Urinary Catheter: patent and draining Skin: General skin exam: normal color and no rashes or lesions noted Objective Data Vital Signs Vital Signs: Vital Signs - 24 hr 05/04/25 15:10 05/04/25 17:05 05/04/25 17:15 Temperature 97.8 F 97.1 F L Pulse Rate 66 85 90 Respiratory Rate 18 12 14 Blood Pressure 146/60 H 140/66 145/61 H Pulse Oximetry 92 100 100 Oxygen Delivery Room Air Simple Face Mask Simple Face Mask Oxygen Flow Rate 8 8 05/04/25 17:30 05/04/25 17:45 05/04/25 18:00 Temperature 97.7 F Pulse Rate 93 91 91 Respiratory Rate 14 14 12 Blood Pressure 114/72 122/66 117/64 Pulse Oximetry 94 92 92 Oxygen Delivery Room Air Room Air Room Air Oxygen Flow Rate 05/04/25 18:14 05/04/25 18:17 05/04/25 18:27 Temperature 98.1 F 97.2 F L Pulse Rate 87 89 94 Respiratory Rate 18 12 18 Blood Pressure 112/61 126/59 L 127/55 L Pulse Oximetry 91 92 95 Oxygen Delivery Room Air Room Air Oxygen Flow Rate 05/04/25 18:45 05/04/25 19:05 05/04/25 19:24 Temperature 98.8 F 97.7 F Pulse Rate 89 94 90 Respiratory Rate 17 14 18 Blood Pressure 116/57 L 119/51 L Pulse Oximetry 93 94 Oxygen Delivery Oxygen Flow Rate 05/04/25 19:24 05/04/25 19:35 05/04/25 20:00 Temperature Pulse Rate 93 Respiratory Rate 18 Blood Pressure Pulse Oximetry 92 Oxygen Delivery Room Air Room Air Oxygen Flow Rate 05/04/25 20:05 05/05/25 00:05 05/05/25 04:05 Temperature 98.1 F 97.5 F L 97.6 F Pulse Rate 90 96 82 Respiratory Rate 14 14 18 Blood Pressure 121/50 L 110/57 L 142/70 H Pulse Oximetry 95 93 93 Oxygen Delivery Oxygen Flow Rate 05/05/25 08:00 05/05/25 08:05 05/05/25 10:25 Temperature 96.2 F L Pulse Rate 82 75 Respiratory Rate 12 18 Blood Pressure 137/56 L Pulse Oximetry 97 Oxygen Delivery Room Air Oxygen Flow Rate Intake/Output Intake/Output: Intake & Output 05/02/25 05/03/25 05/04/25 05/05/25 23:59 23:59 23:59 23:59 Intake Total 1999 2216.7 1000 Output Total 105 350 Balance 1999 2111.7 650 Meds/Results Medications: Active Medications Generic Name Dose Route Start Last Admin Trade Name Freq PRN Reason Stop Dose Admin Budesonide 0.5 mg 05/03/25 20:00 05/05/25 10:25 Budesonide Respule Neb 0.5 Mg/2 Ml Amp NEBULIZE 0.5 mg Q12HRT EDDIE Administration Clobetasol Propionate 1 applic 05/04/25 09:00 05/04/25 08:12 Clobetasol Propionate 0.05% Cream 15 Gm TOPICAL Not Given DAILY ED[facility] Dextrose 12.5 gm 05/03/25 20:21 Dextrose 50% 25 Gm/50 Ml Syringe IV PUSH PRN PRN Hypoglycemia Protocol Enoxaparin Sodium 30 mg 05/05/25 09:00 05/05/25 08:26 Enoxaparin 30 Mg/0.3 Ml Syringe SUB-Q 30 mg DAILY EDDIE Administration Fluticasone Propionate 2 spray 05/03/25 19:35 05/05/25 08:26 Fluticasone Propionate 0.05% Na Spr 16 Gm Btl (*Bkc) NASAL Not Given BID [facility] Glucagon 1 mg 05/03/25 20:21 Glucagon For Inj 1 Mg Vial IM PRN PRN Hypoglycemia Protocol Glucose 15 gm 05/03/25 20:21 Glucose Oral Gel 15 Gm Of Glucse In 37.5 Gm Tube PO PRN PRN Hypoglycemia Protocol Hydromorphone HCl 1 mg 05/04/25 18:20 05/05/25 05:48 Hydromorphone Hcl Inj (*Crx) 1 Mg/Ml Syr IV PUSH 1 mg Q2H PRN Administration Breakthrough Pain Rated 7-10 or NPO Hydromorphone HCl 0.5 mg 05/04/25 18:20 05/05/25 10:54 Hydromorphone Hcl Inj (*Crx) 1 Mg/Ml Syr IV PUSH 0.5 mg Q2H PRN Administration Breakthrough Pain Rated 4-6 or NPO Meropenem 1 gm/ Sodium 100 mls @ 200 mls/hr 05/04/25 06:00 05/05/25 05:49 Chloride IVPB 200 mls/hr Q12H EDDIE Administration Sodium Chloride 1,000 mls @ 125 mls/hr 05/03/25 17:25 05/05/25 02:50 Normal Saline Iv IV CONT 125 mls/hr .Q8H EDDIE Administration Dextrose 1,000 mls @ 100 mls/hr 05/03/25 20:21 Dextrose 5% 1,000 Ml IVPB PRN PRN Hypoglycemia Protocol Micafungin Sodium 100 mg/ 100 mls @ 100 mls/hr 05/04/25 18:20 05/05/25 08:25 Sodium Chloride IVPB 100 mls/hr DAILY EDDIE Administration Miscellaneous Information 1 each 05/04/25 00:01 Arformeterol Is Nonform; Can Pt Use From Home? XX 06/03/25 00:00 CLARIFY EDDIE Non-Formulary Medication 0 mcg 05/03/25 19:30 Arformoterol .ROUTE 06/02/25 19:29 .COMPLEX EDDIE Non-Formulary Medication 0 mcg 05/03/25 19:30 Revefenacin [Yupelri] .ROUTE 06/02/25 19:29 .COMPLEX EDDIE Ondansetron HCl 4 mg 05/03/25 17:22 Ondansetron Inj 4 Mg/2 Ml Vial IV PUSH Q4H PRN Nausea Pantoprazole Sodium 40 mg 05/04/25 09:00 05/05/25 08:25 Pantoprazole Sodium Iv 40 Mg Vial IV PUSH 40 mg Q12H EDDIE Administration Radiology Results: ITS Impressions Abdomen/Pelvis CT 05/03/25 16:07 IMPRESSION: Probable perforated duodenal ulcer. No abscess identified. Results discussed with the referring clinician immediately Abdomen X-Ray 05/03/25 17:36 Impression: 1. No acute abnormality. Upper GI Series 05/04/25 12:42 IMPRESSION: 1. External contrast extravasation through a small perforated ulcer at the duodenal bulb. 2. Small sliding-type hiatal hernia. Labs Labs: Laboratory Results - last 24 hr 05/04/25 05/04/25 05/04/25 11:52 15:31 17:42 WBC RBC Hgb Hct MCV MCH MCHC RDW Plt Count MPV Sodium Potassium Chloride Carbon Dioxide Anion Gap BUN Creatinine Estim Creat Clear Calc Estimated GFR Glucose POC Capillary Glucose 103 87 94 Calcium 05/05/25 05/05/25 05/05/25 00:04 05:37 06:05 WBC 20.5 H RBC 3.71 L Hgb 10.3 L Hct 33.9 L MCV 91.4 MCH 27.8 MCHC 30.4 L RDW 14.6 H Plt Count 174 MPV 10.3 Sodium 140 Potassium 4.6 Chloride 114 H Carbon Dioxide 22 Anion Gap 4 BUN 32 H Creatinine 1.35 H Estim Creat Clear Calc 25 Estimated GFR 38 L Glucose 100 POC Capillary Glucose 103 95 Calcium 6.6 L
--- NOTE | 2025-05-05 13:47 | WPDANESPN ---
Anes - Prog Note Post-Op Date/Time: 05/05/25 13:47 Cardiovascular status: normal Respiratory status: normal Airway patency: baseline Mental status: baseline Post-Op hydration status: normal Vital Signs: Last Vital Signs Temp 36.1 C L 05/05/25 12:05 Pulse 91 05/05/25 12:05 Resp 16 05/05/25 12:05 BP 149/56 H 05/05/25 12:05 Pulse Ox 98 05/05/25 12:05 O2 Del Method Room Air 05/05/25 08:00 O2 Flow Rate 8 05/04/25 17:15 FiO2 28 05/04/25 07:46 Pain Score (VAS): 2 I/O: Intake & Output 05/04/25 05/05/25 05/05/25 23:59 07:59 15:59 Intake Total 250 1000 1100 Output Total 55 350 Balance 592 668 4402 Laboratory Tests 05/05/25 05:37 05/05/25 05:37 05/04/25 05/04/25 05/05/25 15:31 17:42 00:04 WBC RBC Hgb Hct MCV MCH MCHC RDW Plt Count MPV Sodium Potassium Chloride Carbon Dioxide Anion Gap BUN Creatinine Estim Creat Clear Calc Estimated GFR Glucose POC Capillary Glucose 87 94 103 Calcium 05/05/25 05/05/25 05/05/25 05:37 06:05 11:15 WBC 20.5 H RBC 3.71 L Hgb 10.3 L Hct 33.9 L MCV 91.4 MCH 27.8 MCHC 30.4 L RDW 14.6 H Plt Count 174 MPV 10.3 Sodium 140 Potassium 4.6 Chloride 114 H Carbon Dioxide 22 Anion Gap 4 BUN 32 H Creatinine 1.35 H Estim Creat Clear Calc 25 Estimated GFR 38 L Glucose 100 POC Capillary Glucose 95 79 Calcium 6.6 L Post-procedural complaints: none Patient Feedback: Patient satisfied with anesthetic care.
[2025-05-05] MEDS: KCL 20 MEQ/D5/0.45% SOD CHL 1,000 ML 100 ML IV CONT (15:00)
[2025-05-06] VITALS (10 sets, daily range): BP systolic 139–159; BP diastolic 69–78; PULSE 79–96; RESP 12–20; TEMP 35.8–37; O2SAT 92–100
[2025-05-06] MEDS: KCL 20 MEQ/D5/0.45% SOD CHL 1,000 ML 100 ML IV CONT ×2 (02:07→17:42)
[2025-05-06] MEDS: HYDROmorphone HCL INJ (*CRX) 1 MG/ML SYR IV PUSH ×2 (05:00→08:22)
[2025-05-06] MEDS: MEROPENEM 1 GM in SODIUM CHLORIDE 0.9% IV 100 ML 200 ML IVPB ×2 (05:04→17:33)
[2025-05-06 06:12] LABS: Hematocrit 34.9 % (37.0-47.0); Hemoglobin 10.4 g/dL (12.0-15.0); Mean Corpuscular HGB Conc 29.8 g/dl (32-36); Mean Corpuscular Hemoglobin 27.4 pg (26-34); Mean Corpuscular Volume 92.1 fl (80-100); Platelet Count Result 172 k/mm3 (150-375); Red Blood Count 3.79 M/mm3 (4.2-5.4); White Blood Count 14.4 K/mm3 (4.5-10.0)
[2025-05-06 06:32] LABS: Anion Gap 6 mmol/L (4-12); Blood Urea Nitrogen 27 mg/dL (7-17); Calcium 6.4 mg/dL (8.4-10.2); Carbon Dioxide 21 mmol/L (22-30); Chloride 111 mmol/L (98-107); Estimated CRCL calculation 30 ml/min; Estimated Glomerular Filt Rate 47; Glucose 109 mg/dL (65-110); Potassium 4.4 mmol/L (3.4-5.0); Sodium 138 mmol/L (137-145)
--- NOTE | 2025-05-06 07:20 | P.PNIM_ITS ---
Progress Note: A&P Assessment and Plan (1) Duodenal perforation: Code(s): K63.1 - Perforation of intestine (nontraumatic) Status: Acute Assessment and Plan: Patient presented to the ED is abdominal pain that became severe today after eating. No episodes of emesis. Abdominal pelvic CT revealed posterior extraluminal air adjacent to the duodenum; suspicious for perforated duodenal ulcer. No abscess noted. * NPO * NGT placed * Meropenem started due to patient's allergies to several antibiotics * pantoprazole 40 mg IVP q.12 * control pain with morphine p.r.n. * general surgery consulted * no plans for surgery at this time * Follow surgery for any further recommendations * Upper GI series: External contrast extravasation through a small perforated ulcer at the duodenal bulb. Small sliding-type hiatal hernia. * Post op (05/05/25) Laparoscopic repair of perforated duodenal ulcer with omental Dario patch. * GI Series: Postoperative changes associated with a repair of a perforated ulcer at the first portion of the duodenum with no evident residual extraluminal leakage of contrast. Small sliding-type hiatal hernia with gastroesophageal reflux. * Continue NPO along with NG tube suction * + Flatus, denies any bowel movement * Encourage ambulation (2) SIRS (systemic inflammatory response syndrome): Code(s): R65.10 - Systemic inflammatory response syndrome (SIRS) of non-infectious origin without acute organ dysfunction Status: Acute Assessment and Plan: meets SIRS criteria due to HR >90, WBC greater than 12 * 30 mL/kg = 1830 mL. 2 L total given in ED * suspected source: Perforated duodenal ulcer * started on meropenem on 05/03 * blood cultures drawn on 05/03 * UA: Culture pending. Currently covered with meropenem * CXR: No acute cardiopulmonary processes * see above for CT results regarding perforated duodenal ulcer. * trend CBC, BMP * Mg 1.6 * lactic acid 0.9 * Leukocytosis improving, WBC 20.5 -> 14.4 (3) GERD (gastroesophageal reflux disease): Qualifiers: Esophagitis bleeding: without hemorrhage Esophagitis presence: with esophagitis Qualified Code(s): K21.00 - Gastro-esophageal reflux disease with esophagitis, without bleeding Code(s): K21.9 - Gastro-esophageal reflux disease without esophagitis Status: Chronic Assessment and Plan: * Omeprazole 40 mg at home with history of PUD * pantoprazole 40 mg IV q.12 (4) Chronic obstructive pulmonary disease: Qualifiers: COPD type: unspecified COPD Qualified Code(s): J44.9 - Chronic obstructive pulmonary disease, unspecified Code(s): J44.9 - Chronic obstructive pulmonary disease, unspecified Status: Chronic Assessment and Plan: * Not currently in exacerbation. * albuterol nebulizer p.r.n. * arformoterol nebulizer b.i.d. * revefenacin nebulizer daily (5) Depression with anxiety: Code(s): F41.8 - Other specified anxiety disorders Status: Chronic Assessment and Plan: * Continue duloxetine 20 mg b.i.d. (6) Essential (primary) hypertension: Code(s): I10 - Essential (primary) hypertension Status: Chronic Assessment and Plan: * continue amiloride 5 mg-hydrochlorothiazide 50 mg * duloxetine 20 mg b.i.d. (7) Abnormal urinalysis: Code(s): R82.90 - Unspecified abnormal findings in urine Status: Acute Assessment and Plan: - UA: Trace leukocyte esterase, 11-20 WBCs - UC obtained on 05/03 - started on meropenem - Bladder scan p.r.n. Plan Diet: NPO GI prophylaxis: Pantoprazole mg b.i.d. DVT prophylaxis: SCDs lines/drains: PIV, NGT Fluids: 2 L bolus NS Code status: Full Subjective Date/time seen: 05/06/25 07:20 Interval history: 84-year-old female past medical history of CKD 3, HTN, depression with anxiety, hyperlipidemia, COPD, GERD, presented to the emergency department on 05/03/2025 with complaints right upper abdominal pain for the past 3 days but the pain became severe this afternoon after eating lunch. 05/06/2025 Patient sititng comfortably in bed at time of exam. Post op (05/05/25) Laparoscopic repair of perforated duodenal ulcer with omental Dario patch. Upper GI series today - no evidence of residual extraluminal leakage of contrast. She denies any chest pain, SOB, n/v at this time. Still some abdominal bloating, no BM but + flatus. NG still in place, continue bowel rest. Leukocy tosis continues to improve, remains afebrile. Review of Systems Review of Systems: All systems reviewed & are unremarkable except as noted in HPI and below Exam Narrative: GENERAL: non-toxic appearing, in no acute distress. HEAD: Normocephalic, atraumatic. EYES: PERRLA. Conjunctivae clear. NOSE: NGT in place to LIS THROAT: Pharynx clear, no exudate. NECK: Trachea midline. No adenopathy, no masses. RESPIRATORY: Airway patent, respirations nonlabored. CTA. CARDIOVASCULAR: Regular rate and rhythm. BREASTS: Defer GASTROINTESTINAL: NG tube still in place. Abdomen is soft and mildly tender with palpation to the right upper quadrant. No organomegaly. Bowel sounds normal in all quadrants. GENITOURINARY: Urine catheter patent, draining MUSCULOSKELETAL: Moves all extremities. No gross deformities. Moves all extremities well. No calf tenderness. SKIN: Incisions clean and dry, intact, minimal bruising. Warm, dry, normal color. NEURO: A&O X4. Speech clear PSYCHIATRIC: Normal interaction Objective Data Vital Signs Vital Signs: Vital Signs - 24 hr 05/05/25 08:00 05/05/25 08:05 05/05/25 10:25 Temperature 96.2 F L Pulse Rate 82 75 Respiratory Rate 12 18 Blood Pressure 137/56 L Pulse Oximetry 97 Oxygen Delivery Room Air Oxygen Flow Rate Fraction of Inspired Oxygen 05/05/25 12:05 05/05/25 16:05 05/05/25 19:53 Temperature 96.9 F L 98.6 F Pulse Rate 91 89 81 Respiratory Rate 16 14 20 Blood Pressure 149/56 H 150/67 H Pulse Oximetry 98 97 Oxygen Delivery Oxygen Flow Rate Fraction of Inspired Oxygen 05/05/25 19:55 05/05/25 20:00 05/05/25 20:02 Temperature Pulse Rate 81 80 Respiratory Rate 20 20 Blood Pressure Pulse Oximetry 97 95 Oxygen Delivery Nasal Cannula Nasal Cannula Oxygen Flow Rate 2 2 Fraction of Inspired Oxygen 28 05/05/25 20:05 05/06/25 04:33 Temperature 99.3 F 98.3 F Pulse Rate 85 88 Respiratory Rate 18 16 Blood Pressure 150/93 H 155/74 H Pulse Oximetry 95 92 Oxygen Delivery Oxygen Flow Rate Fraction of Inspired Oxygen Intake/Output Intake/Output: Intake & Output 05/03/25 05/04/25 05/05/25 05/06/25 23:59 23:59 23:59 23:59 Intake Total 1999 2216.7 2300 1000 Output Total 105 1300 710 Balance 1999 2111.7 1000 290 Meds/Results Medications: Active Medications Generic Name Dose Route Start Last Admin Trade Name Freq PRN Reason Stop Dose Admin Budesonide 0.5 mg 05/03/25 20:00 05/05/25 19:53 Budesonide Respule Neb 0.5 Mg/2 Ml Amp NEBULIZE 0.5 mg Q12HRT EDDIE Administration Clobetasol Propionate 1 applic 05/04/25 09:00 05/05/25 12:50 Clobetasol Propionate 0.05% Cream 15 Gm TOPICAL Not Given DAILY EDDIE Dextrose 12.5 gm 05/03/25 20:21 Dextrose 50% 25 Gm/50 Ml Syringe IV PUSH PRN PRN Hypoglycemia Protocol Enoxaparin Sodium 30 mg 05/05/25 09:00 05/05/25 08:26 Enoxaparin 30 Mg/0.3 Ml Syringe SUB-Q 30 mg DAILY EDDIE Administration Fluticasone Propionate 2 spray 05/03/25 19:35 05/05/25 17:02 Fluticasone Propionate 0.05% Na Spr 16 Gm Btl (*Bkc) NASAL Not Given BID EDDIE Glucagon 1 mg 05/03/25 20:21 Glucagon For Inj 1 Mg Vial IM PRN PRN Hypoglycemia Protocol Glucose 15 gm 05/03/25 20:21 Glucose Oral Gel 15 Gm Of Glucse In 37.5 Gm Tube PO PRN PRN Hypoglycemia Protocol Hydromorphone HCl 1 mg 05/04/25 18:20 05/06/25 05:00 Hydromorphone Hcl Inj (*Crx) 1 Mg/Ml Syr IV PUSH 1 mg Q2H PRN Administration Breakthrough Pain Rated 7-10 or NPO Hydromorphone HCl 0.5 mg 05/04/25 18:20 05/05/25 16:46 Hydromorphone Hcl Inj (*Crx) 1 Mg/Ml Syr IV PUSH 0.5 mg Q2H PRN Administration Breakthrough Pain Rated 4-6 or NPO Meropenem 1 gm/ Sodium 100 mls @ 200 mls/hr 05/04/25 06:00 05/06/25 05:04 Chloride IVPB 200 mls/hr Q12H EDDIE Administration Dextrose 1,000 mls @ 100 mls/hr 05/03/25 20:21 Dextrose 5% 1,000 Ml IVPB PRN PRN Hypoglycemia Protocol Micafungin Sodium 100 mg/ 100 mls @ 100 mls/hr 05/04/25 18:20 05/05/25 09:25 Sodium Chloride IVPB Infused DAILY EDDIE Infusion Potassium Chloride/Dextrose/Sod Cl 1,000 mls @ 100 mls/hr 05/05/25 14:15 05/06/25 02:07 Kcl 20 Meq/D5/0.45% Sod Chl IV CONT 100 mls/hr .Q10H EDDIE Administration Miscellaneous Information 1 each 05/04/25 00:01 Arformeterol Is Nonform; Can Pt Use From Home? XX 06/03/25 00:00 CLARIFY EDDIE Non-Formulary Medication 0 mcg 05/03/25 19:30 Arformoterol .ROUTE 06/02/25 19:29 .COMPLEX EDDIE Non-Formulary Medication 0 mcg 05/03/25 19:30 Revefenacin [Yupelri] .ROUTE 06/02/25 19:29 .COMPLEX EDDIE Ondansetron HCl 4 mg 05/03/25 17:22 Ondansetron Inj 4 Mg/2 Ml Vial IV PUSH Q4H PRN Nausea Pantoprazole Sodium 40 mg 05/04/25 09:00 05/05/25 20:34 Pantoprazole Sodium Iv 40 Mg Vial IV PUSH 40 mg Q12H EDDIE Administration Radiology Results: ITS Impressions Abdomen/Pelvis CT 05/03/25 16:07 IMPRESSION: Probable perforated duodenal ulcer. No abscess identified. Results discussed with the referring clinician immediately Abdomen X-Ray 05/03/25 17:36 Impression: 1. No acute abnormality. Upper GI Series 05/04/25 12:42 IMPRESSION: 1. External contrast extravasation through a small perforated ulcer at the duodenal bulb. 2. Small sliding-type hiatal hernia. Labs Labs: Laboratory Results - last 24 hr 05/05/25 05/05/25 05/06/25 11:15 18:32 00:50 WBC RBC Hgb Hct MCV MCH MCHC RDW Plt Count MPV Sodium Potassium Chloride Carbon Dioxide Anion Gap BUN Creatinine Estim Creat Clear Calc Estimated GFR Glucose POC Capillary Glucose 79 93 111 H Calcium 05/06/25 05/06/25 04:37 05:29 WBC 14.4 H RBC 3.79 L Hgb 10.4 L Hct 34.9 L MCV 92.1 MCH 27.4 MCHC 29.8 L RDW 14.6 H Plt Count 172 MPV 10.2 Sodium 138 Potassium 4.4 Chloride 111 H Carbon Dioxide 21 L Anion Gap 6 BUN 27 H Creatinine 1.11 H Estim Creat Clear Calc 30 Estimated GFR 47 L Glucose 109 POC Capillary Glucose 92 Calcium 6.4 L Quality VTE Prophylaxis VTE prophylaxis: mechanical ordered
[2025-05-06] MEDS: BUDESONIDE RESPULE NEB 0.5 MG/2 ML AMP NEBULIZE ×3 (07:30→20:45)
[2025-05-06] MEDS: PANTOPRAZOLE SODIUM IV 40 MG VIAL IV PUSH ×2 (08:22→20:29)
[2025-05-06] MEDS: MICAFUNGIN SODIUM 100 MG in SODIUM CHLORIDE 0.9% IV 100 ML IVPB (08:22)
--- NOTE | 2025-05-06 11:47 | PM.PNGS ---
Progress Note: A&P Assessment and Plan (1) Duodenal perforation: Code(s): K63.1 - Perforation of intestine (nontraumatic) Status: Acute Assessment and Plan: Pod 2 status post laparoscopic repair of perforated duodenal ulcer with omental Dario patch. Patient tolerated surgery well. Voiding appropriately with PureWick. Still NPO. Patient reportedly had been eating ice hips yesterday. Continue bowel rest and NG suction. Awaiting bowel function. Upper GI series obtained and demonstrated normal postoperative changes. No extraluminal leakage of contrast. Hemodynamically stable. WBC steadily decreasing. Continue meropenem and micafungin (patient has several antibiotic allergies). Continue Protonix Q12. Encouraged ambulation and out of bed. (2) GERD (gastroesophageal reflux disease): Qualifiers: Esophagitis presence: with esophagitis Esophagitis bleeding: without hemorrhage Qualified Code(s): K21.00 - Gastro-esophageal reflux disease with esophagitis, without bleeding Code(s): K21.9 - Gastro-esophageal reflux disease without esophagitis Status: Chronic (3) Chronic obstructive pulmonary disease: Qualifiers: COPD type: unspecified COPD Qualified Code(s): J44.9 - Chronic obstructive pulmonary disease, unspecified Code(s): J44.9 - Chronic obstructive pulmonary disease, unspecified Status: Chronic (4) Essential (primary) hypertension: Code(s): I10 - Essential (primary) hypertension Status: Chronic Plan Discussed patient's case and plan of care with Dr. Alexandra. Subjective Subjective Date/Time Seen: 05/06/25 11:47 Post Op day: 2 Patient reports: no new complaints, flatus, no bowel movement and afebrile Interval history: Patient doing well today. Still taking dilaudid 1 mg Q3. Encouraged her to only take this when truly necessary for pain. No BM, but states that she has passed some gas. Exam Const: General: comfortable and no acute distress GI: Inspection: distended GI Palp: Yes Soft to palpation, Yes Tenderness to palpation present (GI) (suprapubic), No Guarding due to palpation present (GI) and No Hernia present Auscultation: abnormal bowel sounds (slightly hypoactive) Other: Incisions are clean and dry with glue intact. No signs of infection SATURNINO drain with minimal serosanguineous fluid in bulb. Objective Data Vital Signs Vital Signs: Vital Signs - 24 hr 05/05/25 12:05 05/05/25 16:05 05/05/25 19:53 Temperature 96.9 F L 98.6 F Pulse Rate 91 89 81 Respiratory Rate 16 14 20 Blood Pressure 149/56 H 150/67 H Pulse Oximetry 98 97 Oxygen Delivery Oxygen Flow Rate Fraction of Inspired Oxygen 05/05/25 19:55 05/05/25 20:00 05/05/25 20:02 Temperature Pulse Rate 81 80 Respiratory Rate 20 20 Blood Pressure Pulse Oximetry 97 95 Oxygen Delivery Nasal Cannula Nasal Cannula Oxygen Flow Rate 2 2 Fraction of Inspired Oxygen 28 05/05/25 20:05 05/06/25 04:33 05/06/25 07:31 Temperature 99.3 F 98.3 F Pulse Rate 85 88 81 Respiratory Rate 18 16 20 Blood Pressure 150/93 H 155/74 H Pulse Oximetry 95 92 Oxygen Delivery Oxygen Flow Rate Fraction of Inspired Oxygen 05/06/25 07:35 05/06/25 07:41 Temperature Pulse Rate 79 Respiratory Rate 20 Blood Pressure Pulse Oximetry 92 Oxygen Delivery Room Air Oxygen Flow Rate Fraction of Inspired Oxygen Intake/Output Intake/Output: Intake & Output 05/03/25 05/04/25 05/05/25 05/06/25 23:59 23:59 23:59 23:59 Intake Total 1999 2216.7 2300 1000 Output Total 105 1300 710 Balance 1999 2111.7 1000 290 Meds/Results Medications: Active Medications Generic Name Dose Route Start Last Admin Trade Name Freq PRN Reason Stop Dose Admin Budesonide 0.5 mg 05/03/25 20:00 05/06/25 07:30 Budesonide Respule Neb 0.5 Mg/2 Ml Amp NEBULIZE 0.5 mg Q12HRT EDDIE Administration Clobetasol Propionate 1 applic 05/04/25 09:00 05/05/25 12:50 Clobetasol Propionate 0.05% Cream 15 Gm TOPICAL Not Given DAILY [facility] Dextrose 12.5 gm 05/03/25 20:21 Dextrose 50% 25 Gm/50 Ml Syringe IV PUSH PRN PRN Hypoglycemia Protocol Enoxaparin Sodium 30 mg 05/05/25 09:00 05/05/25 08:26 Enoxaparin 30 Mg/0.3 Ml Syringe SUB-Q 30 mg DAILY EDDIE Administration Fluticasone Propionate 2 spray 05/03/25 19:35 05/05/25 17:02 Fluticasone Propionate 0.05% Na Spr 16 Gm Btl (*Bkc) NASAL Not Given BID EDDIE Glucagon 1 mg 05/03/25 20:21 Glucagon For Inj 1 Mg Vial IM PRN PRN Hypoglycemia Protocol Glucose 15 gm 05/03/25 20:21 Glucose Oral Gel 15 Gm Of Glucse In 37.5 Gm Tube PO PRN PRN Hypoglycemia Protocol Hydromorphone HCl 1 mg 05/04/25 18:20 05/06/25 08:22 Hydromorphone Hcl Inj (*Crx) 1 Mg/Ml Syr IV PUSH 1 mg Q2H PRN Administration Breakthrough Pain Rated 7-10 or NPO Hydromorphone HCl 0.5 mg 05/04/25 18:20 05/05/25 16:46 Hydromorphone Hcl Inj (*Crx) 1 Mg/Ml Syr IV PUSH 0.5 mg Q2H PRN Administration Breakthrough Pain Rated 4-6 or NPO Meropenem 1 gm/ Sodium 100 mls @ 200 mls/hr 05/04/25 06:00 05/06/25 05:04 Chloride IVPB 200 mls/hr Q12H EDDIE Administration Dextrose 1,000 mls @ 100 mls/hr 05/03/25 20:21 Dextrose 5% 1,000 Ml IVPB PRN PRN Hypoglycemia Protocol Micafungin Sodium 100 mg/ 100 mls @ 100 mls/hr 05/04/25 18:20 05/05/25 09:25 Sodium Chloride IVPB Infused DAILY EDDIE Infusion Potassium Chloride/Dextrose/Sod Cl 1,000 mls @ 100 mls/hr 05/05/25 14:15 05/06/25 02:07 Kcl 20 Meq/D5/0.45% Sod Chl IV CONT 100 mls/hr .Q10H EDDIE Administration Miscellaneous Information 1 each 05/04/25 00:01 Arformeterol Is Nonform; Can Pt Use From Home? XX 06/03/25 00:00 CLARIFY EDDIE Non-Formulary Medication 0 mcg 05/03/25 19:30 Arformoterol .ROUTE 06/02/25 19:29 .COMPLEX EDDIE Non-Formulary Medication 0 mcg 05/03/25 19:30 Revefenacin [Yupelri] .ROUTE 06/02/25 19:29 .COMPLEX EDDIE Ondansetron HCl 4 mg 05/03/25 17:22 Ondansetron Inj 4 Mg/2 Ml Vial IV PUSH Q4H PRN Nausea Pantoprazole Sodium 40 mg 05/04/25 09:00 05/05/25 20:34 Pantoprazole Sodium Iv 40 Mg Vial IV PUSH 40 mg Q12H EDDIE Administration Radiology Results: ITS Impressions Abdomen/Pelvis CT 05/03/25 16:07 IMPRESSION: Probable perforated duodenal ulcer. No abscess identified. Results discussed with the referring clinician immediately Abdomen X-Ray 05/03/25 17:36 Impression: 1. No acute abnormality. Upper GI Series 05/06/25 09:56 IMPRESSION: 1. Postoperative changes associated with a repair of a perforated ulcer at the first portion of the duodenum with no evident residual extraluminal leakage of contrast. 2. Small sliding-type hiatal hernia with gastroesophageal reflux. Labs Labs: Laboratory Results - last 24 hr 05/05/25 05/05/25 05/06/25 11:15 18:32 00:50 WBC RBC Hgb Hct MCV MCH MCHC RDW Plt Count MPV Sodium Potassium Chloride Carbon Dioxide Anion Gap BUN Creatinine Estim Creat Clear Calc Estimated GFR Glucose POC Capillary Glucose 79 93 111 H Calcium 05/06/25 05/06/25 04:37 05:29 WBC 14.4 H RBC 3.79 L Hgb 10.4 L Hct 34.9 L MCV 92.1 MCH 27.4 MCHC 29.8 L RDW 14.6 H Plt Count 172 MPV 10.2 Sodium 138 Potassium 4.4 Chloride 111 H Carbon Dioxide 21 L Anion Gap 6 BUN 27 H Creatinine 1.11 H Estim Creat Clear Calc 30 Estimated GFR 47 L Glucose 109 POC Capillary Glucose 92 Calcium 6.4 L
[2025-05-06] MEDS: SUCRALFATE SUSP 100 MG/ML 10 ML UDC 1000 MG PO ×2 (17:35→20:33)
[2025-05-06] MEDS: ONDANSETRON INJ 4 MG/2 ML VIAL IV PUSH (17:43)
[2025-05-07] VITALS (7 sets, daily range): BP systolic 162–190; BP diastolic 71–90; PULSE 76–92; RESP 14–18; TEMP 35.9–36.7; O2SAT 93–100
[2025-05-07] MEDS: MEROPENEM 1 GM in SODIUM CHLORIDE 0.9% IV 100 ML 200 ML IVPB (05:39)
[2025-05-07] MEDS: HYDROmorphone HCL INJ (*CRX) 1 MG/ML SYR 0.5 MG IV PUSH (06:26)
[2025-05-07] MEDS: KCL 20 MEQ/D5/0.45% SOD CHL 1,000 ML 100 ML IV CONT (06:29)
[2025-05-07] MEDS: BUDESONIDE RESPULE NEB 0.5 MG/2 ML AMP NEBULIZE ×3 (07:52→20:36)
[2025-05-07 08:47] LABS: Hematocrit 36.2 % (37.0-47.0); Hemoglobin 11.0 g/dL (12.0-15.0); Immature Granulocyte Percent A 0.6 % (0-0.5); Lymphocytes Absolute Auto 0.30 K/mm3 (0.9-3.2); Mean Corpuscular HGB Conc 30.4 g/dl (32-36); Mean Corpuscular Hemoglobin 27.7 pg (26-34); Mean Corpuscular Volume 91.2 fl (80-100); Nucleated Red Blood Cells Absolute Auto 0.000 K/mm3 (0.0-0.012); Nucleated Red Blood Cells Perc 0.0 % (0.0-0.2); Platelet Count Result 165 k/mm3 (150-375); Red Blood Count 3.97 M/mm3 (4.2-5.4); White Blood Count 8.5 K/mm3 (4.5-10.0)
[2025-05-07 08:49] LABS: Alanine Aminotransferase 18 U/L (6-35); Albumin Level 2.7 g/dL (3.5-5.1); Alkaline Phosphatase 69 U/L (38-126); Anion Gap 3 mmol/L (4-12); Aspartate Amino Transferase 26 U/L (14-36); Bilirubin,Total 0.5 mg/dL (0.2-1.3); Blood Urea Nitrogen 19 mg/dL (7-17); Calcium 6.4 mg/dL (8.4-10.2); Carbon Dioxide 23 mmol/L (22-30); Chloride 112 mmol/L (98-107); Estimated CRCL calculation 37 ml/min; Estimated Glomerular Filt Rate 60; Glucose 119 mg/dL (65-110); Potassium 4.3 mmol/L (3.4-5.0); Sodium 138 mmol/L (137-145); Total Protein 5.4 g/dL (6.3-8.2)
[2025-05-07] MEDS: MICAFUNGIN SODIUM 100 MG in SODIUM CHLORIDE 0.9% IV 100 ML IVPB (09:51)
[2025-05-07] MEDS: ENOXAPARIN 30 MG/0.3 ML SYRINGE SUB-Q (09:52)
[2025-05-07] MEDS: PANTOPRAZOLE SODIUM IV 40 MG VIAL IV PUSH ×2 (09:52→21:35)
[2025-05-07] MEDS: SUCRALFATE SUSP 100 MG/ML 10 ML UDC 1000 MG PO ×3 (11:28→21:35)
--- NOTE | 2025-05-07 11:58 | P.PNGS_ITS ---
Progress Note: A&P Assessment and Plan (1) Duodenal perforation: Code(s): K63.1 - Perforation of intestine (nontraumatic) Status: Acute Assessment and Plan: * Pod 3 status post laparoscopic repair of perforated duodenal ulcer with omental Dario patch. Patient tolerated surgery well. Tolerated clear liquids yesterday, advanced to fulls. * Hemodynamically stable. WBC normalized to 8.5. Continue meropenem and micafungin (patient has several antibiotic allergies). Consider transition to oral abx. * Continue Protonix Q12. * Encouraged ambulation and out of bed. (2) GERD (gastroesophageal reflux disease): Qualifiers: Esophagitis presence: with esophagitis Esophagitis bleeding: without hemorrhage Qualified Code(s): K21.00 - Gastro-esophageal reflux disease with esophagitis, without bleeding Code(s): K21.9 - Gastro-esophageal reflux disease without esophagitis Status: Chronic (3) Chronic obstructive pulmonary disease: Qualifiers: COPD type: unspecified COPD Qualified Code(s): J44.9 - Chronic obstructive pulmonary disease, unspecified Code(s): J44.9 - Chronic obstructive pulmonary disease, unspecified Status: Chronic (4) Essential (primary) hypertension: Code(s): I10 - Essential (primary) hypertension Status: Chronic Plan Discussed patient's case and plan of care with Dr. Alexandra. Subjective Subjective Date/Time Seen: 05/07/25 11:58 Post Op day: 3 Patient reports: tolerating liquids well, bowel movement (diarrhea) and afebrile Interval history: Patient doing well. Has had several BMs, but complains of diarrhea. Toelrating liquids. Exam Const: General: comfortable and no acute distress GI: Inspection: normal to inspection and distended Auscultation: abnormal bowel sounds (slightly hypoactive) and Hypoactive bowel sounds present Other: Incisions are clean and dry with glue intact. No signs of infection SATURNINO drain with minimal serosanguineous fluid in bulb. Objective Data Vital Signs Vital Signs: Vital Signs - 24 hr 05/06/25 13:44 05/06/25 17:49 05/06/25 20:00 Temperature 96.4 F L 98.5 F Pulse Rate 90 96 Respiratory Rate 18 16 Blood Pressure 139/78 159/69 H Pulse Oximetry 95 100 Oxygen Delivery Room Air Oxygen Flow Rate 05/06/25 20:44 05/06/25 20:45 05/06/25 20:55 Temperature Pulse Rate 96 91 Respiratory Rate 20 20 Blood Pressure Pulse Oximetry 97 Oxygen Delivery Room Air Oxygen Flow Rate 05/06/25 21:37 05/07/25 06:22 05/07/25 07:56 Temperature 98.6 F 98.1 F Pulse Rate 95 92 81 Respiratory Rate 12 14 14 Blood Pressure 158/70 H 167/71 H Pulse Oximetry 99 100 93 Oxygen Delivery Nasal Cannula Oxygen Flow Rate 2 05/07/25 07:56 05/07/25 08:03 Temperature Pulse Rate 81 83 Respiratory Rate 14 14 Blood Pressure Pulse Oximetry Oxygen Delivery Oxygen Flow Rate Intake/Output Intake/Output: Intake & Output 05/04/25 05/05/25 05/06/25 05/07/25 23:59 23:59 23:59 23:59 Intake Total 2216.7 2300 2598 1220 Output Total 105 1300 1765 920 Balance 2111.7 1000 833 300 Meds/Results Medications: Active Medications Generic Name Dose Route Start Last Admin Trade Name Freq PRN Reason Stop Dose Admin Budesonide 0.5 mg 05/03/25 20:00 05/07/25 07:52 Budesonide Respule Neb 0.5 Mg/2 Ml Amp NEBULIZE 0.5 mg Q12HRT EDDIE Administration Clobetasol Propionate 1 applic 05/04/25 09:00 05/07/25 10:01 Clobetasol Propionate 0.05% Cream 15 Gm TOPICAL Not Given DAILY EDDIE Dextrose 12.5 gm 05/03/25 20:21 Dextrose 50% 25 Gm/50 Ml Syringe IV PUSH PRN PRN Hypoglycemia Protocol Enoxaparin Sodium 30 mg 05/05/25 09:00 05/07/25 09:52 Enoxaparin 30 Mg/0.3 Ml Syringe SUB-Q 30 mg DAILY EDDIE Administration Fluticasone Propionate 2 spray 05/03/25 19:35 05/06/25 17:39 Fluticasone Propionate 0.05% Na Spr 16 Gm Btl (*Bkc) NASAL Not Given BID EDDIE Glucagon 1 mg 05/03/25 20:21 Glucagon For Inj 1 Mg Vial IM PRN PRN Hypoglycemia Protocol Glucose 15 gm 05/03/25 20:21 Glucose Oral Gel 15 Gm Of Glucse In 37.5 Gm Tube PO PRN PRN Hypoglycemia Protocol Hydromorphone HCl 1 mg 05/04/25 18:20 05/06/25 08:22 Hydromorphone Hcl Inj (*Crx) 1 Mg/Ml Syr IV PUSH 1 mg Q2H PRN Administration Breakthrough Pain Rated 7-10 or NPO Hydromorphone HCl 0.5 mg 05/04/25 18:20 05/07/25 06:26 Hydromorphone Hcl Inj (*Crx) 1 Mg/Ml Syr IV PUSH 0.5 mg Q2H PRN Administration Breakthrough Pain Rated 4-6 or NPO Meropenem 1 gm/ Sodium 100 mls @ 200 mls/hr 05/04/25 06:00 05/07/25 06:25 Chloride IVPB Infused Q12H EDDIE Infusion Dextrose 1,000 mls @ 100 mls/hr 05/03/25 20:21 Dextrose 5% 1,000 Ml IVPB PRN PRN Hypoglycemia Protocol Micafungin Sodium 100 mg/ 100 mls @ 100 mls/hr 05/04/25 18:20 05/07/25 09:51 Sodium Chloride IVPB 100 mls/hr DAILY EDDIE Administration Miscellaneous Information 1 each 05/04/25 00:01 Arformeterol Is Nonform; Can Pt Use From Home? XX 06/03/25 00:00 CLARIFY EDDIE Non-Formulary Medication 0 mcg 05/03/25 19:30 Arformoterol .ROUTE 06/02/25 19:29 .COMPLEX EDDIE Non-Formulary Medication 0 mcg 05/03/25 19:30 Revefenacin [Yupelri] .ROUTE 06/02/25 19:29 .COMPLEX EDDIE Ondansetron HCl 4 mg 05/03/25 17:22 05/06/25 17:43 Ondansetron Inj 4 Mg/2 Ml Vial IV PUSH 4 mg Q4H PRN Administration Nausea Pantoprazole Sodium 40 mg 05/04/25 09:00 05/07/25 09:52 Pantoprazole Sodium Iv 40 Mg Vial IV PUSH 40 mg Q12H EDDIE Administration Sucralfate 1,000 mg 05/06/25 16:30 05/07/25 11:28 Sucralfate Susp 100 Mg/Ml 10 Ml Udc PO 1,000 mg ACHS EDDIE Administration Radiology Results: ITS Impressions Abdomen/Pelvis CT 05/03/25 16:07 IMPRESSION: Probable perforated duodenal ulcer. No abscess identified. Results discussed with the referring clinician immediately Abdomen X-Ray 05/03/25 17:36 Impression: 1. No acute abnormality. Upper GI Series 05/06/25 09:56 IMPRESSION: 1. Postoperative changes associated with a repair of a perforated ulcer at the first portion of the duodenum with no evident residual extraluminal leakage of contrast. 2. Small sliding-type hiatal hernia with gastroesophageal reflux. Labs Labs: Laboratory Results - last 24 hr 05/06/25 05/07/25 05/07/25 12:00 00:30 04:36 WBC RBC Hgb Hct MCV MCH MCHC RDW Plt Count MPV Immature Gran % (Auto) Neut % (Auto) Lymph % (Auto) [place] % (Auto) Eos % (Auto) Baso % (Auto) Lymph # (Auto) [place] # (Auto) Eos # (Auto) Baso # (Auto) Abs Immat Gran (auto) Absolute Neuts (auto) Absolute Nucleated RBC Nucleated RBC % Sodium Potassium Chloride Carbon Dioxide Anion Gap BUN Creatinine Estim Creat Clear Calc Estimated GFR Glucose POC Capillary Glucose 93 114 H 128 H Calcium Total Bilirubin AST ALT Alkaline Phosphatase Total Protein Albumin 05/07/25 08:19 WBC 8.5 RBC 3.97 L Hgb 11.0 L Hct 36.2 L MCV 91.2 MCH 27.7 MCHC 30.4 L RDW 14.1 Plt Count 165 MPV 9.8 Immature Gran % (Auto) 0.6 H Neut % (Auto) 85.9 H Lymph % (Auto) 3.5 L [place] % (Auto) 7.2 Eos % (Auto) 2.6 Baso % (Auto) 0.2 Lymph # (Auto) 0.30 L [place] # (Auto) 0.6 Eos # (Auto) 0.2 Baso # (Auto) 0.0 Abs Immat Gran (auto) 0.05 H Absolute Neuts (auto) 7.3 H Absolute Nucleated RBC 0.000 Nucleated RBC % 0.0 Sodium 138 Potassium 4.3 Chloride 112 H Carbon Dioxide 23 Anion Gap 3 L BUN 19 H Creatinine 0.90 Estim Creat Clear Calc 37 Estimated GFR 60 Glucose 119 H POC Capillary Glucose Calcium 6.4 L Total Bilirubin 0.5 AST 26 ALT 18 Alkaline Phosphatase 69 Total Protein 5.4 L Albumin 2.7 L
[2025-05-07] MEDS: HYDROcodone/acetaminophen (*CRX) 5-325 MG TABLET 1 TAB PO ×2 (14:40→21:35)
--- NOTE | 2025-05-07 15:08 | PM.SD2 ---
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 Internal hemorrhoids Sigmoid diverticulosis Melena BMI 26.0-26.9,adult Acute viral pharyngitis Right foot pain Vitamin D deficiency Seasonal allergic rhinitis History of kidney stones Low back pain radiating to left leg Mixed hyperlipidemia Depression with anxiety Urinary frequency Osteoarthritis involving multiple joints on both sides of body COPD exacerbation History of peptic ulcer History of tobacco abuse Surgical History Surgical History (Updated 05/03/25 @ 17:22 by Eugene Alexandra DO) No significant past surgical history Family History Family History Mother Hypertension Cerebrovascular accident, Onset Age: 72 Sibling Asthma Diabetes mellitus Father Acute myocardial infarction Patient's father is , Onset Age: 71 Family history of coronary artery disease Family history of congestive heart failure Grandparent Family history of malignant neoplasm Acute myocardial infarction Cerebrovascular accident Social History Social History Smoking packs per day: 2 Smoking cigarettes per day: 40.0 Years smoked: 40 Smoking pack-years: 80.00 Smoking status: Former smoker Second hand tobacco smoke exposure: No Additional smoking assessment comments: STATES QUIT 2007 Alcohol intake: never Substance use: never Substance use type: does not use Lack of Transportation: No Lack of Food: Never True Current Housing: Decline to Answer Concerned About Future Housing: Decline to Answer Difficulty Paying Gas/Electric Bills: Decline to Answer Difficulty Paying for Meds: Decline to Answer Currently Unemployed: Decline to Answer Education: High School Diploma/GED Difficulty w/ Childcare or Family Care: No Living arrangements: alone Occupation/Education: retired Gender identity (if verbalized by the patient): Female Spiritual care concerns: No Agree to blood products: Yes Same Day Admit/Disch: Med Pre-admit Medications Home Medications ?Medication ?Instructions ?Recorded ?Confirmed ?Type lactobacillus combination no.4 3 3,000 mmu cells PO DAILY 03/02/21 05/03/25 History billion cell capsule (Probiotic) inhalational spacing device #1 ea 12/06/21 05/03/25 Rx (Aerochamber MV spacer) conjugated estrogens 0.625 mg/gram 0.3125 mg vaginal DAILY #30 grams 11/24/22 05/03/25 Rx vaginal cream psyllium husk 0.4 gram capsule 0.4 g PO DAILY 01/30/23 05/03/25 History (Daily Fiber) [facility] Prolia #1 ea 08/07/23 04/29/25 Rx fluticasone propionate 50 2 spray intranasal BID #48 mL 11/22/23 05/03/25 Rx mcg/actuation nasal spray,suspension (Flonase Allergy Relief) albuterol sulfate 2.5 mg/3 mL See Rx Instructions .Route 11/29/23 05/03/25 Rx (0.083 %) solution for nebulization .COMPLEX #30 vials clobetasol 0.05 % topical cream 1 applic topical DAILY #60 grams 12/11/23 05/03/25 Rx cholecalciferol (vitamin D3) 1,250 1,250 mcg PO MONTHLY 09/03/24 05/03/25 History mcg (50,000 unit) capsule arformoterol 15 mcg/2 mL solution See Rx Instructions .Route 09/29/24 05/03/25 Rx for nebulization .COMPLEX #60 ea budesonide 0.5 mg/2 mL suspension See Rx Instructions .Route 09/29/24 05/03/25 Rx for nebulization .COMPLEX #60 ea revefenacin 175 mcg/3 mL solution See Rx Instructions .Route 11/05/24 05/03/25 Rx for nebulization (Jace) .COMPLEX #30 vials omeprazole 40 mg capsule,delayed 40 mg PO DAILY #90 caps 11/25/24 05/03/25 Rx release duloxetine 20 mg capsule,delayed 20 mg PO BID #60 caps 11/27/24 05/03/25 Rx release amiloride 5 mg-hydrochlorothiazide 1 tablet PO HS #90 tabs 02/04/25 05/03/25 Rx 50 mg tablet losartan 100 mg tablet 100 mg PO HS #90 tabs 04/09/25 05/03/25 Rx aspirin 81 mg tablet 81 mg PO DAILY 05/03/25 05/03/25 History DS: Data Data Completed and Pending Labs on day of discharge: Labs from last 24 hours 05/07/25 05/07/25 05/07/25 11:51 08:19 04:36 WBC 8.5 RBC 3.97 L Hgb 11.0 L Hct 36.2 L MCV 91.2 MCH 27.7 MCHC 30.4 L RDW 14.1 Plt Count 165 MPV 9.8 Immature Gran % (Auto) 0.6 H Neut % (Auto) 85.9 H Lymph % (Auto) 3.5 L [place] % (Auto) 7.2 Eos % (Auto) 2.6 Baso % (Auto) 0.2 Lymph # (Auto) 0.30 L [place] # (Auto) 0.6 Eos # (Auto) 0.2 Baso # (Auto) 0.0 Abs Immat Gran (auto) 0.05 H Absolute Neuts (auto) 7.3 H Absolute Nucleated RBC 0.000 Nucleated RBC % 0.0 Sodium 138 Potassium 4.3 Chloride 112 H Carbon Dioxide 23 Anion Gap 3 L BUN 19 H Creatinine 0.90 Estim Creat Clear Calc 37 Estimated GFR 60 Glucose 119 H POC Capillary Glucose 117 H 128 H Calcium 6.4 L Total Bilirubin 0.5 AST 26 ALT 18 Alkaline Phosphatase 69 Total Protein 5.4 L Albumin 2.7 L 05/07/25 00:30 WBC RBC Hgb Hct MCV MCH MCHC RDW Plt Count MPV Immature Gran % (Auto) Neut % (Auto) Lymph % (Auto) [place] % (Auto) Eos % (Auto) Baso % (Auto) Lymph # (Auto) [place] # (Auto) Eos # (Auto) Baso # (Auto) Abs Immat Gran (auto) Absolute Neuts (auto) Absolute Nucleated RBC Nucleated RBC % Sodium Potassium Chloride Carbon Dioxide Anion Gap BUN Creatinine Estim Creat Clear Calc Estimated GFR Glucose POC Capillary Glucose 114 H Calcium Total Bilirubin AST ALT Alkaline Phosphatase Total Protein Albumin Preliminary micro results at discharge 05/03/25 21:51 Blood Culture - Preliminary Blood 05/03/25 21:51 Blood Culture - Preliminary Blood DS: Summary Time Spent with Patient Time attestation: Total time spent providing and/or coordinating discharge services: Discharge Plan Discharge Consulting providers: Robert Miller; Eugene Alexandra Patient Language: Polish Discharge Medications: No Action Probiotic 3 billion cell capsule 3,000 mmu cells PO DAILY Rx Instructions: administer with a meal conjugated estrogens 0.625 mg/gram cream 0.3125 mg vaginal DAILY Qty: 30 0RF (DME) Aerochamber MV Spacer See Rx Instructions .ROUTE .MEDSUPPLY Qty: 1 0RF Rx Instructions: As directed psyllium husk [Daily Fiber] 0.4 gram capsule 0.4 g PO DAILY fluticasone propionate [Flonase Allergy Relief] 50 mcg/actuation spray,suspension 2 spray intranasal BID Qty: 48 3RF Rx Instructions: administer into each nostril. Aim back/up/out aspirin 81 mg tablet 81 mg PO DAILY (DME) [facility] for Prolia See Rx Instructions .Route .MEDSUPPLY Qty: 1 0RF Rx Instructions: As directed for administration by [facility] albuterol sulfate 2.5 mg /3 mL (0.083 %) solution for nebulization See Rx Instructions .ROUTE .COMPLEX Qty: 30 11RF Dose Instruction: USE 1 VIAL IN NEBULIZER DAILY - (For Rescue) Rx Instructions: USE 1 VIAL IN NEBULIZER DAILY - (For Rescue) clobetasol 0.05 % cream 1 applic topical DAILY Qty: 60 0RF Rx Instructions: Apply thin layer sparingly to affected area cholecalciferol (vitamin D3) 1,250 mcg (50,000 unit) capsule 1,250 mcg PO MONTHLY arformoterol 15 mcg/2 mL solution for nebulization See Rx Instructions .ROUTE .COMPLEX Qty: 60 11RF Dose Instruction: USE 1 VIAL IN NEBULIZER TWICE DAILY - morning and evening Rx Instructions: USE 1 VIAL IN NEBULIZER TWICE DAILY - morning and evening budesonide 0.5 mg/2 mL suspension for nebulization See Rx Instructions .ROUTE .COMPLEX Qty: 60 11RF Dose Instruction: USE 1 VIAL IN NEBULIZER TWICE DAILY - rinse mouth after treatment Rx Instructions: USE 1 VIAL IN NEBULIZER TWICE DAILY - rinse mouth after treatment Yupelri 175 mcg/3 mL solution for nebulization See Rx Instructions .ROUTE .COMPLEX Qty: 30 11RF Dose Instruction: USE 1 VIAL IN NEBULIZER DAILY - - DO NOT MIX WITH OTHER NEBULIZER MEDICATION Rx Instructions: USE 1 VIAL IN NEBULIZER DAILY - - DO NOT MIX WITH OTHER NEBULIZER MEDICATION omeprazole 40 mg capsule,delayed release(DR/EC) 40 mg PO DAILY Qty: 90 3RF duloxetine 20 mg capsule,delayed release(DR/EC) 20 mg PO BID Qty: 60 4RF amiloride-hydrochlorothiazide 5-50 mg tablet 1 tablet PO HS Qty: 90 1RF losartan 100 mg tablet 100 mg PO HS Qty: 90 1RF Date of admission: 05/03/25 17:43 Primary Care Provider: Christy Gallardo Admitting Provider: David Hercules Attending physician on admission: David Hercules Condition: Stable
--- NOTE | 2025-05-07 15:10 | PM.IMPN ---
Progress Note: A&P Assessment and Plan (1) Duodenal perforation: Code(s): K63.1 - Perforation of intestine (nontraumatic) Status: Acute Assessment and Plan: Patient presented to the ED is abdominal pain that became severe today after eating. No episodes of emesis. Abdominal pelvic CT revealed posterior extraluminal air adjacent to the duodenum; suspicious for perforated duodenal ulcer. No abscess noted. NPO NGT placed Meropenem started due to patient's allergies to several antibiotics pantoprazole 40 mg IVP q.12 control pain with morphine p.r.n. general surgery consulted no plans for surgery at this time Follow surgery for any further recommendations Upper GI series: External contrast extravasation through a small perforated ulcer at the duodenal bulb. Small sliding-type hiatal hernia. Post op (05/05/25) Laparoscopic repair of perforated duodenal ulcer with omental Dario patch. GI Series: Postoperative changes associated with a repair of a perforated ulcer at the first portion of the duodenum with no evident residual extraluminal leakage of contrast. Small sliding-type hiatal hernia with gastroesophageal reflux. s/p NPO along with NG tube suction + Flatus, + bowel movement (diarrhea) Encourage ambulation diet changed to full liquid per surgery team PT/OT ordered (2) SIRS (systemic inflammatory response syndrome): Code(s): R65.10 - Systemic inflammatory response syndrome (SIRS) of non-infectious origin without acute organ dysfunction Status: Acute Assessment and Plan: meets SIRS criteria due to HR >90, WBC greater than 12 30 mL/kg = 1830 mL. 2 L total given in ED suspected source: Perforated duodenal ulcer started on meropenem on 05/03 blood cultures drawn on 05/03 UA: Culture pending. Currently covered with meropenem CXR: No acute cardiopulmonary processes see above for CT results regarding perforated duodenal ulcer. trend CBC, BMP Mg 1.6 lactic acid 0.9 Leukocytosis resolved (3) GERD (gastroesophageal reflux disease): Qualifiers: Esophagitis bleeding: without hemorrhage Esophagitis presence: with esophagitis Qualified Code(s): K21.00 - Gastro-esophageal reflux disease with esophagitis, without bleeding Code(s): K21.9 - Gastro-esophageal reflux disease without esophagitis Status: Chronic Assessment and Plan: Omeprazole 40 mg at home with history of PUD pantoprazole 40 mg IV q.12 (4) Chronic obstructive pulmonary disease: Qualifiers: COPD type: unspecified COPD Qualified Code(s): J44.9 - Chronic obstructive pulmonary disease, unspecified Code(s): J44.9 - Chronic obstructive pulmonary disease, unspecified Status: Chronic Assessment and Plan: Not currently in exacerbation. albuterol nebulizer p.r.n. arformoterol nebulizer b.i.d. revefenacin nebulizer daily (5) Depression with anxiety: Code(s): F41.8 - Other specified anxiety disorders Status: Chronic Assessment and Plan: Continue duloxetine 20 mg b.i.d. (6) Essential (primary) hypertension: Code(s): I10 - Essential (primary) hypertension Status: Chronic Assessment and Plan: continue amiloride 5 mg-hydrochlorothiazide 50 mg monitor blood pressure and adjust as indicated (7) Abnormal urinalysis: Code(s): R82.90 - Unspecified abnormal findings in urine Status: Acute Assessment and Plan: - UA: Trace leukocyte esterase, 11-20 WBCs - UC obtained on 05/03, UC with 10-25k colonies enterococcus faecalis, colonization, no need for treatment - Bladder scan p.r.n. Plan Diet: Full Liquid GI prophylaxis: Pantoprazole mg b.i.d. DVT prophylaxis: SCDs lines/drains: PIV Code status: Full Subjective Date/time seen: 05/07/25 15:10 Interval history: 84-year-old female past medical history of CKD 3, HTN, depression with anxiety, hyperlipidemia, COPD, GERD, presented to the emergency department on 05/03/2025 with complaints right upper abdominal pain for the past 3 days but the pain became severe this afternoon after eating lunch. 05/06/2025 Patient seen sitting on the side of the bed, in some discomfort, alert. Patient reports her pain as a 5/10 and requests some pain medication from the nurse. Patient was started on a full liquid diet per general surgery. Patient reports taking a few drinks but not much. Patient's NGT removed per surgery. Patient reports + flatus, + bowel movement (diarrhea). PT/OT ordered. Review of Systems Review of Systems: All systems reviewed & are unremarkable except as noted in HPI and below Exam Narrative: GENERAL: non-toxic appearing, in no acute distress. HEAD: Normocephalic, atraumatic. EYES: PERRLA. Conjunctivae clear. THROAT: Pharynx clear, no exudate. NECK: Trachea midline. No adenopathy, no masses. RESPIRATORY: Airway patent, respirations nonlabored. CTA. CARDIOVASCULAR: Regular rate and rhythm. GASTROINTESTINAL: Abdomen is soft and mildly tender with palpation to the right upper quadrant, post surgical. No organomegaly. Bowel sounds normal in all quadrants. GENITOURINARY: Urine catheter patent, draining MUSCULOSKELETAL: Moves all extremities. No gross deformities. Moves all extremities well. No calf tenderness. SKIN: Incisions clean and dry, intact, minimal bruising. Warm, dry, normal color. NEURO: A&O X4. Speech clear PSYCHIATRIC: Normal interaction Objective Data Vital Signs Vital Signs: Vital Signs - 24 hr 05/06/25 17:49 05/06/25 20:00 05/06/25 20:44 Temperature 98.5 F Pulse Rate 96 Respiratory Rate 16 Blood Pressure 159/69 H Pulse Oximetry 100 97 Oxygen Delivery Room Air Room Air Oxygen Flow Rate 05/06/25 20:45 05/06/25 20:55 05/06/25 21:37 Temperature 98.6 F Pulse Rate 96 91 95 Respiratory Rate 20 20 12 Blood Pressure 158/70 H Pulse Oximetry 99 Oxygen Delivery Oxygen Flow Rate 05/07/25 06:22 05/07/25 07:56 05/07/25 07:56 Temperature 98.1 F Pulse Rate 92 81 81 Respiratory Rate 14 14 14 Blood Pressure 167/71 H Pulse Oximetry 100 93 Oxygen Delivery Nasal Cannula Oxygen Flow Rate 2 05/07/25 08:03 Temperature Pulse Rate 83 Respiratory Rate 14 Blood Pressure Pulse Oximetry Oxygen Delivery Oxygen Flow Rate Intake/Output Intake/Output: Intake & Output 05/04/25 05/05/25 05/06/25 05/07/25 23:59 23:59 23:59 23:59 Intake Total 2216.7 2300 2598 1460 Output Total 105 1300 1765 1620 Balance 2111.7 1000 833 -160 Meds/Results Medications: Active Medications Generic Name Dose Route Start Last Admin Trade Name Freq PRN Reason Stop Dose Admin Hydrocodone Bitart/Acetaminophen 1 tab 05/07/25 12:13 05/07/25 14:40 Hydrocodone/Acetaminophen (*Crx) 5-325 Mg Tablet PO 1 tab Q4H PRN Administration Pain Rated 4-6 Hydrocodone Bitart/Acetaminophen 1 tab 05/07/25 12:13 Hydrocodone/Acetaminophen (*Crx) 10-325 Mg Tablet PO Q6H PRN Pain Rated 7-10 Amoxicillin/Clavulanate Potassium 1 tablet 05/07/25 21:00 Amoxicillin/Clavulanate K 875-125 Mg Tab PO Q12HR [facility] Budesonide 0.5 mg 05/03/25 20:00 05/07/25 07:52 Budesonide Respule Neb 0.5 Mg/2 Ml Amp NEBULIZE 0.5 mg Q12HRT EDDIE Administration Clobetasol Propionate 1 applic 05/04/25 09:00 05/07/25 10:01 Clobetasol Propionate 0.05% Cream 15 Gm TOPICAL Not Given DAILY [facility] Dextrose 12.5 gm 05/03/25 20:21 Dextrose 50% 25 Gm/50 Ml Syringe IV PUSH PRN PRN Hypoglycemia Protocol Duloxetine HCl 20 mg 05/07/25 17:00 Duloxetine Hcl 20 Mg Capsule. PO BID [facility] Enoxaparin Sodium 30 mg 05/05/25 09:00 05/07/25 09:52 Enoxaparin 30 Mg/0.3 Ml Syringe SUB-Q 30 mg DAILY [facility] Administration Fluconazole 200 mg 05/08/25 09:00 Fluconazole 100 Mg Tablet PO QAM [facility] Fluticasone Propionate 2 spray 05/03/25 19:35 05/07/25 13:30 Fluticasone Propionate 0.05% Na Spr 16 Gm Btl (*Bkc) NASAL Not Given BID [facility] Glucagon 1 mg 05/03/25 20:21 Glucagon For Inj 1 Mg Vial IM PRN PRN Hypoglycemia Protocol Glucose 15 gm 05/03/25 20:21 Glucose Oral Gel 15 Gm Of Glucse In 37.5 Gm Tube PO PRN PRN Hypoglycemia Protocol Hydromorphone HCl 1 mg 05/04/25 18:20 05/06/25 08:22 Hydromorphone Hcl Inj (*Crx) 1 Mg/Ml Syr IV PUSH 1 mg Q2H PRN Administration Breakthrough Pain Rated 7-10 or NPO Hydromorphone HCl 0.5 mg 05/04/25 18:20 05/07/25 06:26 Hydromorphone Hcl Inj (*Crx) 1 Mg/Ml Syr IV PUSH 0.5 mg Q2H PRN Administration Breakthrough Pain Rated 4-6 or NPO Dextrose 1,000 mls @ 100 mls/hr 05/03/25 20:21 Dextrose 5% 1,000 Ml IVPB PRN PRN Hypoglycemia Protocol Losartan Potassium 100 mg 05/07/25 21:00 Losartan Potassium 100 Mg Tablet PO HS EDDIE Metronidazole 500 mg 05/07/25 14:00 05/07/25 13:30 Metronidazole 500 Mg Tablet PO 500 mg Q8HR EDDIE Administration Miscellaneous Information 1 each 05/04/25 00:01 Arformeterol Is Nonform; Can Pt Use From Home? XX 06/03/25 00:00 CLARIFY EDDIE Non-Formulary Medication 0 mcg 05/03/25 19:30 Arformoterol .ROUTE 06/02/25 19:29 .COMPLEX EDDIE Non-Formulary Medication 0 mcg 05/03/25 19:30 Revefenacin [Yupelri] .ROUTE 06/02/25 19:29 .COMPLEX EDDIE Ondansetron HCl 4 mg 05/03/25 17:22 05/06/25 17:43 Ondansetron Inj 4 Mg/2 Ml Vial IV PUSH 4 mg Q4H PRN Administration Nausea Pantoprazole Sodium 40 mg 05/04/25 09:00 05/07/25 09:52 Pantoprazole Sodium Iv 40 Mg Vial IV PUSH 40 mg Q12H EDDIE Administration Sucralfate 1,000 mg 05/06/25 16:30 05/07/25 11:28 Sucralfate Susp 100 Mg/Ml 10 Ml Udc PO 1,000 mg ACHS EDDIE Administration Radiology Results: ITS Impressions Abdomen/Pelvis CT 05/03/25 16:07 IMPRESSION: Probable perforated duodenal ulcer. No abscess identified. Results discussed with the referring clinician immediately Abdomen X-Ray 05/03/25 17:36 Impression: 1. No acute abnormality. Upper GI Series 05/06/25 09:56 IMPRESSION: 1. Postoperative changes associated with a repair of a perforated ulcer at the first portion of the duodenum with no evident residual extraluminal leakage of contrast. 2. Small sliding-type hiatal hernia with gastroesophageal reflux. Labs Labs: Laboratory Results - last 24 hr 05/07/25 05/07/25 05/07/25 00:30 04:36 08:19 WBC 8.5 RBC 3.97 L Hgb 11.0 L Hct 36.2 L MCV 91.2 MCH 27.7 MCHC 30.4 L RDW 14.1 Plt Count 165 MPV 9.8 Immature Gran % (Auto) 0.6 H Neut % (Auto) 85.9 H Lymph % (Auto) 3.5 L [place] % (Auto) 7.2 Eos % (Auto) 2.6 Baso % (Auto) 0.2 Lymph # (Auto) 0.30 L [place] # (Auto) 0.6 Eos # (Auto) 0.2 Baso # (Auto) 0.0 Abs Immat Gran (auto) 0.05 H Absolute Neuts (auto) 7.3 H Absolute Nucleated RBC 0.000 Nucleated RBC % 0.0 Sodium 138 Potassium 4.3 Chloride 112 H Carbon Dioxide 23 Anion Gap 3 L BUN 19 H Creatinine 0.90 Estim Creat Clear Calc 37 Estimated GFR 60 Glucose 119 H POC Capillary Glucose 114 H 128 H Calcium 6.4 L Total Bilirubin 0.5 AST 26 ALT 18 Alkaline Phosphatase 69 Total Protein 5.4 L Albumin 2.7 L 05/07/25 11:51 WBC RBC Hgb Hct MCV MCH MCHC RDW Plt Count MPV Immature Gran % (Auto) Neut % (Auto) Lymph % (Auto) [place] % (Auto) Eos % (Auto) Baso % (Auto) Lymph # (Auto) [place] # (Auto) Eos # (Auto) Baso # (Auto) Abs Immat Gran (auto) Absolute Neuts (auto) Absolute Nucleated RBC Nucleated RBC % Sodium Potassium Chloride Carbon Dioxide Anion Gap BUN Creatinine Estim Creat Clear Calc Estimated GFR Glucose POC Capillary Glucose 117 H Calcium Total Bilirubin AST ALT Alkaline Phosphatase Total Protein Albumin Quality VTE Prophylaxis VTE prophylaxis: mechanical ordered
--- NOTE | 2025-05-07 17:57 | PHAR ---
Home meds verified by pharmacy - Surinderi 175mcg/3ml soln -Arformoterol 15mcg/2ml
[2025-05-07] MEDS: ARFORMOTEROL 15 MCG/2 ML 15 EACH INHALATION ×2 (20:32→20:36)
[2025-05-07] MEDS: REVEFENACIN 175 MCG/3 ML 175 EACH INHALATION (20:36)
[2025-05-07] MEDS: LOSARTAN POTASSIUM 100 MG TABLET PO (21:35)
[2025-05-08] VITALS (11 sets, daily range): BP systolic 154–174; BP diastolic 63–78; PULSE 74–89; RESP 14–20; TEMP 35.7–36.9; O2SAT 96–100
[2025-05-08] MEDS: SUCRALFATE SUSP 100 MG/ML 10 ML UDC 1000 MG PO ×3 (05:51→21:03)
[2025-05-08 06:21] LABS: Hematocrit 36.8 % (37.0-47.0); Hemoglobin 11.1 g/dL (12.0-15.0); Mean Corpuscular HGB Conc 30.2 g/dl (32-36); Mean Corpuscular Hemoglobin 27.5 pg (26-34); Mean Corpuscular Volume 91.3 fl (80-100); Platelet Count Result 169 k/mm3 (150-375); Red Blood Count 4.03 M/mm3 (4.2-5.4); White Blood Count 7.1 K/mm3 (4.5-10.0)
[2025-05-08 06:52] LABS: Anion Gap 4 mmol/L (4-12); Blood Urea Nitrogen 16 mg/dL (7-17); Calcium 6.4 mg/dL (8.4-10.2); Carbon Dioxide 23 mmol/L (22-30); Chloride 108 mmol/L (98-107); Estimated CRCL calculation 40 ml/min; Estimated Glomerular Filt Rate > 60; Glucose 92 mg/dL (65-110); Potassium 4.1 mmol/L (3.4-5.0); Sodium 135 mmol/L (137-145)
[2025-05-08] MEDS: ARFORMOTEROL 15 MCG/2 ML 15 EACH INHALATION ×2 (07:14→19:55)
[2025-05-08] MEDS: REVEFENACIN 175 MCG/3 ML 175 EACH INHALATION (07:14)
[2025-05-08] MEDS: BUDESONIDE RESPULE NEB 0.5 MG/2 ML AMP NEBULIZE ×2 (07:14→19:55)
--- NOTE | 2025-05-08 08:08 | P.PNIM_ITS ---
Progress Note: A&P Assessment and Plan (1) Duodenal perforation: Code(s): K63.1 - Perforation of intestine (nontraumatic) Status: Acute Assessment and Plan: Patient presented to the ED is abdominal pain that became severe today after eating. No episodes of emesis. Abdominal pelvic CT revealed posterior extraluminal air adjacent to the duodenum; suspicious for perforated duodenal ulcer. No abscess noted. * NPO * NGT placed * Meropenem started due to patient's allergies to several antibiotics * pantoprazole 40 mg IVP q.12 * control pain with morphine p.r.n. * general surgery consulted * no plans for surgery at this time * Follow surgery for any further recommendations * Upper GI series: External contrast extravasation through a small perforated ulcer at the duodenal bulb. Small sliding-type hiatal hernia. * Post op (05/05/25) Laparoscopic repair of perforated duodenal ulcer with omental Dario patch. * GI Series: Postoperative changes associated with a repair of a perforated ulcer at the first portion of the duodenum with no evident residual extraluminal leakage of contrast. Small sliding-type hiatal hernia with gastroesophageal reflux. * s/p NPO along with NG tube suction * + Flatus, + bowel movement (diarrhea) * Encourage ambulation * diet changed to full liquid per surgery team * PT/OT ordered (2) SIRS (systemic inflammatory response syndrome): Code(s): R65.10 - Systemic inflammatory response syndrome (SIRS) of non-infectious origin without acute organ dysfunction Status: Acute Assessment and Plan: meets SIRS criteria due to HR >90, WBC greater than 12 * 30 mL/kg = 1830 mL. 2 L total given in ED * suspected source: Perforated duodenal ulcer * started on meropenem on 05/03 * blood cultures drawn on 05/03 * UA: Culture pending. Currently covered with meropenem * CXR: No acute cardiopulmonary processes * see above for CT results regarding perforated duodenal ulcer. * trend CBC, BMP * Mg 1.6 * lactic acid 0.9 * Leukocytosis resolved (3) GERD (gastroesophageal reflux disease): Qualifiers: Esophagitis presence: with esophagitis Esophagitis bleeding: without hemorrhage Qualified Code(s): K21.00 - Gastro-esophageal reflux disease with esophagitis, without bleeding Code(s): K21.9 - Gastro-esophageal reflux disease without esophagitis Status: Chronic Assessment and Plan: * Omeprazole 40 mg at home with history of PUD * pantoprazole 40 mg IV q.12 (4) Chronic obstructive pulmonary disease: Qualifiers: COPD type: unspecified COPD Qualified Code(s): J44.9 - Chronic obstructive pulmonary disease, unspecified Code(s): J44.9 - Chronic obstructive pulmonary disease, unspecified Status: Chronic Assessment and Plan: * Not currently in exacerbation. * albuterol nebulizer p.r.n. * arformoterol nebulizer b.i.d. * revefenacin nebulizer daily (5) Depression with anxiety: Code(s): F41.8 - Other specified anxiety disorders Status: Chronic Assessment and Plan: * Continue duloxetine 20 mg b.i.d. (6) Essential (primary) hypertension: Code(s): I10 - Essential (primary) hypertension Status: Chronic Assessment and Plan: * continue amiloride 5 mg-hydrochlorothiazide 50 mg * monitor blood pressure and adjust as indicated (7) Abnormal urinalysis: Code(s): R82.90 - Unspecified abnormal findings in urine Status: Acute Assessment and Plan: - UA: Trace leukocyte esterase, 11-20 WBCs - UC obtained on 05/03, UC with 10-25k colonies enterococcus faecalis, colonization, no need for treatment - Bladder scan p.r.n. Plan Diet: Full Liquid GI prophylaxis: Pantoprazole mg b.i.d. DVT prophylaxis: SCDs lines/drains: PIV Code status: Full Subjective Date/time seen: 05/08/25 08:08 Review of Systems Review of Systems: All systems reviewed & are unremarkable except as noted in HPI and below Exam Narrative: GENERAL: non-toxic appearing, in no acute distress. HEAD: Normocephalic, atraumatic. EYES: PERRLA. Conjunctivae clear. THROAT: Pharynx clear, no exudate. NECK: Trachea midline. No adenopathy, no masses. RESPIRATORY: Airway patent, respirations nonlabored. CTA. CARDIOVASCULAR: Regular rate and rhythm. GASTROINTESTINAL: Abdomen is soft and mildly tender with palpation to the right upper quadrant, post surgical. No organomegaly. Bowel sounds normal in all quadrants. GENITOURINARY: Urine catheter patent, draining MUSCULOSKELETAL: Moves all extremities. No gross deformities. Moves all extremities well. No calf tenderness. SKIN: Incisions clean and dry, intact, minimal bruising. Warm, dry, normal color. NEURO: A&O X4. Speech clear PSYCHIATRIC: Normal interaction Objective Data Vital Signs Vital Signs: Vital Signs - 24 hr 05/07/25 14:00 05/07/25 20:00 05/07/25 20:00 Temperature 96.7 F L 96.9 F L Pulse Rate 92 76 80 Respiratory Rate 18 18 16 Blood Pressure 162/79 H 190/90 H Pulse Oximetry 97 100 98 Oxygen Delivery Nasal Cannula Oxygen Flow Rate 2 Fraction of Inspired Oxygen 28 05/07/25 20:36 05/07/25 20:40 05/08/25 00:37 Temperature 96.5 F L Pulse Rate 80 80 74 Respiratory Rate 16 16 20 Blood Pressure 174/78 H Pulse Oximetry 98 98 Oxygen Delivery Nasal Cannula Oxygen Flow Rate 2 Fraction of Inspired Oxygen 05/08/25 04:05 05/08/25 07:15 Temperature 96.2 F L Pulse Rate 78 84 Respiratory Rate 18 16 Blood Pressure 159/63 H Pulse Oximetry 98 Oxygen Delivery Oxygen Flow Rate Fraction of Inspired Oxygen Intake/Output Intake/Output: Intake & Output 05/05/25 05/06/25 05/07/25 05/08/25 23:59 23:59 23:59 23:59 Intake Total 2300 2598 1610 150 Output Total 1300 1765 1620 70 Balance 1000 833 -10 80 Meds/Results Medications: Active Medications Generic Name Dose Route Start Last Admin Trade Name Freq PRN Reason Stop Dose Admin Hydrocodone Bitart/Acetaminophen 1 tab 05/07/25 12:13 05/07/25 21:35 Hydrocodone/Acetaminophen (*Crx) 5-325 Mg Tablet PO 1 tab Q4H PRN Administration Pain Rated 4-6 Hydrocodone Bitart/Acetaminophen 1 tab 05/07/25 12:13 Hydrocodone/Acetaminophen (*Crx) 10-325 Mg Tablet PO Q6H PRN Pain Rated 7-10 Amoxicillin/Clavulanate Potassium 1 tablet 05/07/25 21:00 05/07/25 21:35 Amoxicillin/Clavulanate K 875-125 Mg Tab PO 1 tablet Q12HR EDDIE Administration Budesonide 0.5 mg 05/07/25 20:30 05/08/25 07:10 Budesonide Respule Neb 0.5 Mg/2 Ml Amp NEBULIZE 0.5 mg Q12HRT EDDIE Administration Clobetasol Propionate 1 applic 05/04/25 09:00 05/07/25 10:01 Clobetasol Propionate 0.05% Cream 15 Gm TOPICAL Not Given DAILY PENDING SALE TO [facility] Dextrose 12.5 gm 05/03/25 20:21 Dextrose 50% 25 Gm/50 Ml Syringe IV PUSH PRN PRN Hypoglycemia Protocol Duloxetine HCl 20 mg 05/07/25 17:00 05/07/25 17:42 Duloxetine Hcl 20 Mg Capsule.Dr PO 20 mg BID EDDIE Administration Enoxaparin Sodium 30 mg 05/05/25 09:00 05/07/25 09:52 Enoxaparin 30 Mg/0.3 Ml Syringe SUB-Q 30 mg DAILY EDDIE Administration Fluconazole 200 mg 05/08/25 09:00 Fluconazole 100 Mg Tablet PO QAM PENDING SALE TO [facility] Fluticasone Propionate 2 spray 05/03/25 19:35 05/07/25 17:40 Fluticasone Propionate 0.05% Na Spr 16 Gm Btl (*Bkc) NASAL Not Given BID PENDING SALE TO [facility] Glucagon 1 mg 05/03/25 20:21 Glucagon For Inj 1 Mg Vial IM PRN PRN Hypoglycemia Protocol Glucose 15 gm 05/03/25 20:21 Glucose Oral Gel 15 Gm Of Glucse In 37.5 Gm Tube PO PRN PRN Hypoglycemia Protocol Hydromorphone HCl 1 mg 05/04/25 18:20 05/06/25 08:22 Hydromorphone Hcl Inj (*Crx) 1 Mg/Ml Syr IV PUSH 1 mg Q2H PRN Administration Breakthrough Pain Rated 7-10 or NPO Hydromorphone HCl 0.5 mg 05/04/25 18:20 05/07/25 06:26 Hydromorphone Hcl Inj (*Crx) 1 Mg/Ml Syr IV PUSH 0.5 mg Q2H PRN Administration Breakthrough Pain Rated 4-6 or NPO Dextrose 1,000 mls @ 100 mls/hr 05/03/25 20:21 Dextrose 5% 1,000 Ml IVPB PRN PRN Hypoglycemia Protocol Losartan Potassium 100 mg 05/07/25 21:00 05/07/25 21:35 Losartan Potassium 100 Mg Tablet PO 100 mg HS EDDIE Administration Metronidazole 500 mg 05/07/25 14:00 05/08/25 05:51 Metronidazole 500 Mg Tablet PO 500 mg Q8HR EDDIE Administration *Home Med* 175 mcg 05/07/25 20:35 05/08/25 07:14 Revefenacin [Yupelri INHALATION 06/06/25 20:34 175 mcg ] 175 Mcg/3 Ml DAILYRT EDDIE Administration Solution For Nebulization) *Home Med* 15 mcg 05/07/25 20:35 05/08/25 07:14 Arformoterol 15 Mcg/ INHALATION 06/06/25 20:34 15 mcg 2 Ml Solution For Q12HRT EDDIE Administration Nebulization Ondansetron HCl 4 mg 05/03/25 17:22 05/06/25 17:43 Ondansetron Inj 4 Mg/2 Ml Vial IV PUSH 4 mg Q4H PRN Administration Nausea Pantoprazole Sodium 40 mg 05/04/25 09:00 05/07/25 21:35 Pantoprazole Sodium Iv 40 Mg Vial IV PUSH 40 mg Q12H EDDIE Administration Sucralfate 1,000 mg 05/06/25 16:30 05/08/25 05:51 Sucralfate Susp 100 Mg/Ml 10 Ml Udc PO 1,000 mg ACHS EDDIE Administration Radiology Results: ITS Impressions Abdomen/Pelvis CT 05/03/25 16:07 IMPRESSION: Probable perforated duodenal ulcer. No abscess identified. Results discussed with the referring clinician immediately Abdomen X-Ray 05/03/25 17:36 Impression: 1. No acute abnormality. Upper GI Series 05/06/25 09:56 IMPRESSION: 1. Postoperative changes associated with a repair of a perforated ulcer at the first portion of the duodenum with no evident residual extraluminal leakage of contrast. 2. Small sliding-type hiatal hernia with gastroesophageal reflux. Labs Labs: Laboratory Results - last 24 hr 05/07/25 05/07/25 05/07/25 08:19 11:51 17:03 WBC 8.5 RBC 3.97 L Hgb 11.0 L Hct 36.2 L MCV 91.2 MCH 27.7 MCHC 30.4 L RDW 14.1 Plt Count 165 MPV 9.8 Immature Gran % (Auto) 0.6 H Neut % (Auto) 85.9 H Lymph % (Auto) 3.5 L [place] % (Auto) 7.2 Eos % (Auto) 2.6 Baso % (Auto) 0.2 Lymph # (Auto) 0.30 L [place] # (Auto) 0.6 Eos # (Auto) 0.2 Baso # (Auto) 0.0 Abs Immat Gran (auto) 0.05 H Absolute Neuts (auto) 7.3 H Absolute Nucleated RBC 0.000 Nucleated RBC % 0.0 Sodium 138 Potassium 4.3 Chloride 112 H Carbon Dioxide 23 Anion Gap 3 L BUN 19 H Creatinine 0.90 Estim Creat Clear Calc 37 Estimated GFR 60 Glucose 119 H POC Capillary Glucose 117 H 96 Calcium 6.4 L Total Bilirubin 0.5 AST 26 ALT 18 Alkaline Phosphatase 69 Total Protein 5.4 L Albumin 2.7 L 05/08/25 05/08/25 05/08/25 00:18 04:07 05:42 WBC 7.1 RBC 4.03 L Hgb 11.1 L Hct 36.8 L MCV 91.3 MCH 27.5 MCHC 30.2 L RDW 14.0 Plt Count 169 MPV 10.6 H Immature Gran % (Auto) Neut % (Auto) Lymph % (Auto) [place] % (Auto) Eos % (Auto) Baso % (Auto) Lymph # (Auto) [place] # (Auto) Eos # (Auto) Baso # (Auto) Abs Immat Gran (auto) Absolute Neuts (auto) Absolute Nucleated RBC Nucleated RBC % Sodium 135 L Potassium 4.1 Chloride 108 H Carbon Dioxide 23 Anion Gap 4 BUN 16 Creatinine 0.82 Estim Creat Clear Calc 40 Estimated GFR > 60 Glucose 92 POC Capillary Glucose 94 94 Calcium 6.4 L Total Bilirubin AST ALT Alkaline Phosphatase Total Protein Albumin Quality VTE Prophylaxis VTE prophylaxis: mechanical ordered
[2025-05-08] MEDS: PANTOPRAZOLE SODIUM IV 40 MG VIAL IV PUSH (08:26)
[2025-05-08] MEDS: ENOXAPARIN 30 MG/0.3 ML SYRINGE SUB-Q (08:26)
[2025-05-08] MEDS: FLUCONAZOLE 100 MG TABLET 200 MG PO (08:27)
[2025-05-08 09:24] LABS: Alanine Aminotransferase 22 U/L (6-35); Albumin Level 2.6 g/dL (3.5-5.1); Alkaline Phosphatase 70 U/L (38-126); Aspartate Amino Transferase 28 U/L (14-36); Bilirubin,Total 0.6 mg/dL (0.2-1.3); Total Protein 5.3 g/dL (6.3-8.2)
--- NOTE | 2025-05-08 13:58 | P.PNGS_ITS ---
Progress Note: A&P Assessment and Plan (1) Duodenal perforation: Code(s): K63.1 - Perforation of intestine (nontraumatic) Status: Acute Assessment and Plan: * Pod 4 status post laparoscopic repair of perforated duodenal ulcer with omental Dario patch. Patient tolerated surgery well. Tolerated full liquid diet, advanced to regular diet. * Hemodynamically stable. WBC remains normal. Continue meropenem and micafungin (patient has several antibiotic allergies). Transitioned to oral antibiotics. * Continue Protonix Q12. * Encouraged ambulation and out of bed. Patient will likely be discharged tomorrow. (2) GERD (gastroesophageal reflux disease): Qualifiers: Esophagitis presence: with esophagitis Esophagitis bleeding: without hemorrhage Qualified Code(s): K21.00 - Gastro-esophageal reflux disease with esophagitis, without bleeding Code(s): K21.9 - Gastro-esophageal reflux disease without esophagitis Status: Chronic (3) Chronic obstructive pulmonary disease: Qualifiers: COPD type: unspecified COPD Qualified Code(s): J44.9 - Chronic obstructive pulmonary disease, unspecified Code(s): J44.9 - Chronic obstructive pulmonary disease, unspecified Status: Chronic (4) Essential (primary) hypertension: Code(s): I10 - Essential (primary) hypertension Status: Chronic Plan Discussed patient's case and plan of care with Dr. Alexandra. Subjective Subjective Date/Time Seen: 05/08/25 13:58 Post Op day: 4 Patient reports: no new complaints, feels better, still having pain, tolerating a regular diet, bowel movement and afebrile Interval history: Patient feels tired today, but otherwise no new complaints. Up in chair upon my visit. Exam GI: Inspection: distended Other: Incisions are clean and dry with glue intact. No signs of infection. SATURNINO drain with minimal serosanguineous fluid in bulb. Objective Data Vital Signs Vital Signs: Vital Signs - 24 hr 05/07/25 14:00 05/07/25 20:00 05/07/25 20:00 Temperature 96.7 F L 96.9 F L Pulse Rate 92 76 80 Respiratory Rate 18 18 16 Blood Pressure 162/79 H 190/90 H Pulse Oximetry 97 100 98 Oxygen Delivery Nasal Cannula Oxygen Flow Rate 2 Fraction of Inspired Oxygen 28 05/07/25 20:36 05/07/25 20:40 05/08/25 00:37 Temperature 96.5 F L Pulse Rate 80 80 74 Respiratory Rate 16 16 20 Blood Pressure 174/78 H Pulse Oximetry 98 98 Oxygen Delivery Nasal Cannula Oxygen Flow Rate 2 Fraction of Inspired Oxygen 05/08/25 04:05 05/08/25 07:15 05/08/25 08:00 Temperature 96.2 F L Pulse Rate 78 84 Respiratory Rate 18 16 Blood Pressure 159/63 H Pulse Oximetry 98 98 Oxygen Delivery Nasal Cannula Oxygen Flow Rate 2 Fraction of Inspired Oxygen 05/08/25 09:51 05/08/25 11:42 Temperature Pulse Rate Respiratory Rate Blood Pressure Pulse Oximetry Oxygen Delivery Nasal Cannula Nasal Cannula Oxygen Flow Rate 2 2 Fraction of Inspired Oxygen Intake/Output Intake/Output: Intake & Output 05/05/25 05/06/25 05/07/25 05/08/25 23:59 23:59 23:59 23:59 Intake Total 2300 2598 1610 390 Output Total 1300 1765 1620 70 Balance 1000 833 -10 320 Meds/Results Medications: Active Medications Generic Name Dose Route Start Last Admin Trade Name Freq PRN Reason Stop Dose Admin Hydrocodone Bitart/Acetaminophen 1 tab 05/07/25 12:13 05/07/25 21:35 Hydrocodone/Acetaminophen (*Crx) 5-325 Mg Tablet PO 1 tab Q4H PRN Administration Pain Rated 4-6 Hydrocodone Bitart/Acetaminophen 1 tab 05/07/25 12:13 Hydrocodone/Acetaminophen (*Crx) 10-325 Mg Tablet PO Q6H PRN Pain Rated 7-10 Amoxicillin/Clavulanate Potassium 1 tablet 05/07/25 21:00 05/08/25 08:28 Amoxicillin/Clavulanate K 875-125 Mg Tab PO 1 tablet Q12HR EDDIE Administration Budesonide 0.5 mg 05/07/25 20:30 05/08/25 07:14 Budesonide Respule Neb 0.5 Mg/2 Ml Amp NEBULIZE 0.5 mg Q12HRT EDDIE Administration Clobetasol Propionate 1 applic 05/04/25 09:00 05/07/25 10:01 Clobetasol Propionate 0.05% Cream 15 Gm TOPICAL Not Given DAILY EDDIE Dextrose 12.5 gm 05/03/25 20:21 Dextrose 50% 25 Gm/50 Ml Syringe IV PUSH PRN PRN Hypoglycemia Protocol Duloxetine HCl 20 mg 05/07/25 17:00 05/08/25 08:27 Duloxetine Hcl 20 Mg Capsule.Dr PO 20 mg BID EDDIE Administration Enoxaparin Sodium 30 mg 05/05/25 09:00 05/08/25 08:26 Enoxaparin 30 Mg/0.3 Ml Syringe SUB-Q 30 mg DAILY EDDIE Administration Fluconazole 200 mg 05/08/25 09:00 05/08/25 08:27 Fluconazole 100 Mg Tablet PO 200 mg QAM EDDIE Administration Fluticasone Propionate 2 spray 05/03/25 19:35 05/08/25 08:27 Fluticasone Propionate 0.05% Na Spr 16 Gm Btl (*Bkc) NASAL Not Given BID EDDIE Glucagon 1 mg 05/03/25 20: Glucagon For Inj 1 Mg Vial IM PRN PRN Hypoglycemia Protocol Glucose 15 gm 05/03/25 20:21 Glucose Oral Gel 15 Gm Of Glucse In 37.5 Gm Tube PO PRN PRN Hypoglycemia Protocol Hydromorphone HCl 1 mg 05/04/25 18:20 05/06/25 08:22 Hydromorphone Hcl Inj (*Crx) 1 Mg/Ml Syr IV PUSH 1 mg Q2H PRN Administration Breakthrough Pain Rated 7-10 or NPO Hydromorphone HCl 0.5 mg 05/04/25 18:20 05/07/25 06:26 Hydromorphone Hcl Inj (*Crx) 1 Mg/Ml Syr IV PUSH 0.5 mg Q2H PRN Administration Breakthrough Pain Rated 4-6 or NPO Dextrose 1,000 mls @ 100 mls/hr 05/03/25 20:21 Dextrose 5% 1,000 Ml IVPB PRN PRN Hypoglycemia Protocol Losartan Potassium 100 mg 05/07/25 21:00 05/07/25 21:35 Losartan Potassium 100 Mg Tablet PO 100 mg HS EDDIE Administration Metronidazole 500 mg 05/07/25 14:00 05/08/25 13:42 Metronidazole 500 Mg Tablet PO 500 mg Q8HR EDDIE Administration *Home Med* 175 mcg 05/07/25 20:35 05/08/25 07:14 Revefenacin [Yupelri INHALATION 06/06/25 20:34 175 mcg ] 175 Mcg/3 Ml DAILYRT EDDIE Administration Solution For Nebulization) *Home Med* 15 mcg 05/07/25 20:35 05/08/25 07:14 Arformoterol 15 Mcg/ INHALATION 06/06/25 20:34 15 mcg 2 Ml Solution For Q12HRT EDDIE Administration Nebulization Ondansetron HCl 4 mg 05/03/25 17:22 05/06/25 17:43 Ondansetron Inj 4 Mg/2 Ml Vial IV PUSH 4 mg Q4H PRN Administration Nausea Pantoprazole Sodium 40 mg 05/04/25 09:00 05/08/25 08:26 Pantoprazole Sodium Iv 40 Mg Vial IV PUSH 40 mg Q12H EDDIE Administration Sucralfate 1,000 mg 05/06/25 16:30 05/08/25 11:59 Sucralfate Susp 100 Mg/Ml 10 Ml Udc PO 1,000 mg ACHS EDDIE Administration Radiology Results: ITS Impressions Abdomen/Pelvis CT 05/03/25 16:07 IMPRESSION: Probable perforated duodenal ulcer. No abscess identified. Results discussed with the referring clinician immediately Abdomen X-Ray 05/03/25 17:36 Impression: 1. No acute abnormality. Upper GI Series 05/06/25 09:56 IMPRESSION: 1. Postoperative changes associated with a repair of a perforated ulcer at the first portion of the duodenum with no evident residual extraluminal leakage of contrast. 2. Small sliding-type hiatal hernia with gastroesophageal reflux. Labs Labs: Laboratory Results - last 24 hr 05/07/25 05/08/25 05/08/25 17:03 00:18 04:07 WBC RBC Hgb Hct MCV MCH MCHC RDW Plt Count MPV Sodium Potassium Chloride Carbon Dioxide Anion Gap BUN Creatinine Estim Creat Clear Calc Estimated GFR Glucose POC Capillary Glucose 96 94 94 Calcium Total Bilirubin Direct Bilirubin AST ALT Alkaline Phosphatase Total Protein Albumin 05/08/25 05:42 WBC 7.1 RBC 4.03 L Hgb 11.1 L Hct 36.8 L MCV 91.3 MCH 27.5 MCHC 30.2 L RDW 14.0 Plt Count 169 MPV 10.6 H Sodium 135 L Potassium 4.1 Chloride 108 H Carbon Dioxide 23 Anion Gap 4 BUN 16 Creatinine 0.82 Estim Creat Clear Calc 40 Estimated GFR > 60 Glucose 92 POC Capillary Glucose Calcium 6.4 L Total Bilirubin 0.6 Direct Bilirubin 0.0 AST 28 ALT 22 Alkaline Phosphatase 70 Total Protein 5.3 L Albumin 2.6 L
--- NOTE | 2025-05-08 14:25 | P.PNIM_ITS ---
Progress Note: A&P Assessment and Plan (1) Duodenal perforation: Code(s): K63.1 - Perforation of intestine (nontraumatic) Status: Acute Assessment and Plan: Patient presented to the ED is abdominal pain that became severe today after eating. No episodes of emesis. Abdominal pelvic CT revealed posterior extraluminal air adjacent to the duodenum; suspicious for perforated duodenal ulcer. No abscess noted. * NPO * NGT placed * Meropenem started due to patient's allergies to several antibiotics * pantoprazole 40 mg IVP q.12 * control pain with morphine p.r.n. * general surgery consulted * no plans for surgery at this time * Follow surgery for any further recommendations * Upper GI series: External contrast extravasation through a small perforated ulcer at the duodenal bulb. Small sliding-type hiatal hernia. * Post op (05/05/25) Laparoscopic repair of perforated duodenal ulcer with omental Dario patch. * GI Series: Postoperative changes associated with a repair of a perforated ulcer at the first portion of the duodenum with no evident residual extraluminal leakage of contrast. Small sliding-type hiatal hernia with gastroesophageal reflux. * s/p NPO along with NG tube suction * + Flatus, + bowel movement (diarrhea) * Encourage ambulation * regular diet, patient tolerating * PT/OT ordered * patient having diarrhea still, check stool for c-diff * possible discharge home tomorrow. patient reports she does not want to go to rehab and does not want C (2) SIRS (systemic inflammatory response syndrome): Code(s): R65.10 - Systemic inflammatory response syndrome (SIRS) of non-infectious origin without acute organ dysfunction Status: Acute Assessment and Plan: meets SIRS criteria due to HR >90, WBC greater than 12 * 30 mL/kg = 1830 mL. 2 L total given in ED * suspected source: Perforated duodenal ulcer * started on meropenem on 05/03 * blood cultures drawn on 05/03 * UA: Culture pending. Currently covered with meropenem * CXR: No acute cardiopulmonary processes * see above for CT results regarding perforated duodenal ulcer. * trend CBC, BMP * Mg 1.6 * lactic acid 0.9 * Leukocytosis resolved (3) GERD (gastroesophageal reflux disease): Qualifiers: Esophagitis presence: with esophagitis Esophagitis bleeding: without hemorrhage Qualified Code(s): K21.00 - Gastro-esophageal reflux disease with esophagitis, without bleeding Code(s): K21.9 - Gastro-esophageal reflux disease without esophagitis Status: Chronic Assessment and Plan: * Omeprazole 40 mg at home with history of PUD * pantoprazole 40 mg IV q.12 * change protonix to PO (4) Chronic obstructive pulmonary disease: Qualifiers: COPD type: unspecified COPD Qualified Code(s): J44.9 - Chronic obstructive pulmonary disease, unspecified Code(s): J44.9 - Chronic obstructive pulmonary disease, unspecified Status: Chronic Assessment and Plan: * Not currently in exacerbation. * albuterol nebulizer p.r.n. * arformoterol nebulizer b.i.d. * revefenacin nebulizer daily (5) Depression with anxiety: Code(s): F41.8 - Other specified anxiety disorders Status: Chronic Assessment and Plan: * Continue duloxetine 20 mg b.i.d. (6) Essential (primary) hypertension: Code(s): I10 - Essential (primary) hypertension Status: Chronic Assessment and Plan: * continue PO losartan * restart home med amiloride 5 mg-hydrochlorothiazide 50 mg * monitor blood pressure and adjust as indicated (7) Abnormal urinalysis: Code(s): R82.90 - Unspecified abnormal findings in urine Status: Acute Assessment and Plan: - UA: Trace leukocyte esterase, 11-20 WBCs - UC obtained on 05/03, UC with 10-25k colonies enterococcus faecalis, colonization, no need for treatment - Bladder scan p.r.n. Plan Diet: Regular GI prophylaxis: Pantoprazole mg b.i.d. DVT prophylaxis: SCDs lines/drains: PIV Code status: Full Subjective Date/time seen: 05/08/25 14:25 Interval history: 84-year-old female past medical history of CKD 3, HTN, depression with anxiety, hyperlipidemia, COPD, GERD, presented to the emergency department on 05/03/2025 with complaints right upper abdominal pain for the past 3 days but the pain became severe this afternoon after eating lunch. 05/06/2025 Patient seen for a follow up visit. Patient lying in bed, in no acute distress. Patient reports her pain is controlled today. Patient tolerating diet, does not have much appetite. Patient reports diarrhea still. We will check stool for c- diff. Patients labs reviewed. Patients blood pressure still elevated. Patients losartan restarted last night, will restart home amiloride and HCTZ. Possible discharge home tomorrow. Patient states she does not want to go to rehab and does not want home health care. Review of Systems Review of Systems: All systems reviewed & are unremarkable except as noted in HPI and below Exam Narrative: GENERAL: non-toxic appearing, in no acute distress. HEAD: Normocephalic, atraumatic. EYES: PERRLA. Conjunctivae clear. THROAT: Pharynx clear, no exudate. NECK: Trachea midline. No adenopathy, no masses. RESPIRATORY: Airway patent, respirations nonlabored. CTA. CARDIOVASCULAR: Regular rate and rhythm. GASTROINTESTINAL: Abdomen is soft and mildly tender with palpation to the right upper quadrant, post surgical. No organomegaly. Bowel sounds normal in all quadrants. GENITOURINARY: Urine catheter patent, draining MUSCULOSKELETAL: Moves all extremities. No gross deformities. Moves all extremities well. No calf tenderness. SKIN: Incisions clean and dry, intact, minimal bruising. Warm, dry, normal color. NEURO: A&O X4. Speech clear PSYCHIATRIC: Normal interaction Objective Data Vital Signs Vital Signs: Vital Signs - 24 hr 05/07/25 20:00 05/07/25 20:00 05/07/25 20:36 Temperature 96.9 F L Pulse Rate 76 80 80 Respiratory Rate 18 16 16 Blood Pressure 190/90 H Pulse Oximetry 100 98 Oxygen Delivery Nasal Cannula Oxygen Flow Rate 2 Fraction of Inspired Oxygen 28 05/07/25 20:40 05/08/25 00:37 05/08/25 04:05 Temperature 96.5 F L 96.2 F L Pulse Rate 80 74 78 Respiratory Rate 16 20 18 Blood Pressure 174/78 H 159/63 H Pulse Oximetry 98 98 98 Oxygen Delivery Nasal Cannula Oxygen Flow Rate 2 Fraction of Inspired Oxygen 05/08/25 07:15 05/08/25 08:00 05/08/25 09:51 Temperature Pulse Rate 84 Respiratory Rate 16 Blood Pressure Pulse Oximetry 98 Oxygen Delivery Nasal Cannula Nasal Cannula Oxygen Flow Rate 2 2 Fraction of Inspired Oxygen 05/08/25 11:42 05/08/25 14:00 Temperature 96.6 F L Pulse Rate 89 Respiratory Rate 18 Blood Pressure 155/71 H Pulse Oximetry 100 Oxygen Delivery Nasal Cannula Oxygen Flow Rate 2 Fraction of Inspired Oxygen Intake/Output Intake/Output: Intake & Output 05/05/25 05/06/25 05/07/25 05/08/25 23:59 23:59 23:59 23:59 Intake Total 2300 2598 1610 390 Output Total 1300 1765 1620 100 Balance 1000 833 -10 290 Meds/Results Medications: Active Medications Generic Name Dose Route Start Last Admin Trade Name Freq PRN Reason Stop Dose Admin Hydrocodone Bitart/Acetaminophen 1 tab 05/07/25 12:13 05/07/25 21:35 Hydrocodone/Acetaminophen (*Crx) 5-325 Mg Tablet PO 1 tab Q4H PRN Administration Pain Rated 4-6 Hydrocodone Bitart/Acetaminophen 1 tab 05/07/25 12:13 Hydrocodone/Acetaminophen (*Crx) 10-325 Mg Tablet PO Q6H PRN Pain Rated 7-10 Amoxicillin/Clavulanate Potassium 1 tablet 05/07/25 21:00 05/08/25 08:28 Amoxicillin/Clavulanate K 875-125 Mg Tab PO 1 tablet Q12HR EDDIE Administration Budesonide 0.5 mg 05/07/25 20:30 05/08/25 07:14 Budesonide Respule Neb 0.5 Mg/2 Ml Amp NEBULIZE 0.5 mg Q12HRT EDDIE Administration Clobetasol Propionate 1 applic 05/04/25 09:00 05/07/25 10:01 Clobetasol Propionate 0.05% Cream 15 Gm TOPICAL Not Given DAILY EDDIE Dextrose 12.5 gm 05/03/25 20:21 Dextrose 50% 25 Gm/50 Ml Syringe IV PUSH PRN PRN Hypoglycemia Protocol Duloxetine HCl 20 mg 05/07/25 17:00 05/08/25 08:27 Duloxetine Hcl 20 Mg Capsule.Dr PO 20 mg BID EDDIE Administration Enoxaparin Sodium 30 mg 05/05/25 09:00 05/08/25 08:26 Enoxaparin 30 Mg/0.3 Ml Syringe SUB-Q 30 mg DAILY EDDIE Administration Fluconazole 200 mg 05/08/25 09:00 05/08/25 08:27 Fluconazole 100 Mg Tablet PO 200 mg QAM EDDIE Administration Fluticasone Propionate 2 spray 05/03/25 19:35 05/08/25 08:27 Fluticasone Propionate 0.05% Na Spr 16 Gm Btl (*Bkc) NASAL Not Given BID EDDIE Glucagon 1 mg 05/03/25 20:21 Glucagon For Inj 1 Mg Vial IM PRN PRN Hypoglycemia Protocol Glucose 15 gm 05/03/25 20:21 Glucose Oral Gel 15 Gm Of Glucse In 37.5 Gm Tube PO PRN PRN Hypoglycemia Protocol Hydromorphone HCl 1 mg 05/04/25 18:20 05/06/25 08:22 Hydromorphone Hcl Inj (*Crx) 1 Mg/Ml Syr IV PUSH 1 mg Q2H PRN Administration Breakthrough Pain Rated 7-10 or NPO Hydromorphone HCl 0.5 mg 05/04/25 18:20 05/07/25 06:26 Hydromorphone Hcl Inj (*Crx) 1 Mg/Ml Syr IV PUSH 0.5 mg Q2H PRN Administration Breakthrough Pain Rated 4-6 or NPO Dextrose 1,000 mls @ 100 mls/hr 05/03/25 20:21 Dextrose 5% 1,000 Ml IVPB PRN PRN Hypoglycemia Protocol Losartan Potassium 100 mg 05/07/25 21:00 05/07/25 21:35 Losartan Potassium 100 Mg Tablet PO 100 mg HS EDDIE Administration Metronidazole 500 mg 05/07/25 14:00 05/08/25 13:42 Metronidazole 500 Mg Tablet PO 500 mg Q8HR EDDIE Administration *Home Med* 175 mcg 05/07/25 20:35 05/08/25 07:14 Revefenacin [Yupelri INHALATION 06/06/25 20:34 175 mcg ] 175 Mcg/3 Ml DAILYRT EDDIE Administration Solution For Nebulization) *Home Med* 15 mcg 05/07/25 20:35 05/08/25 07:14 Arformoterol 15 Mcg/ INHALATION 06/06/25 20:34 15 mcg 2 Ml Solution For Q12HRT EDDIE Administration Nebulization Ondansetron HCl 4 mg 05/03/25 17:22 05/06/25 17:43 Ondansetron Inj 4 Mg/2 Ml Vial IV PUSH 4 mg Q4H PRN Administration Nausea Pantoprazole Sodium 40 mg 05/04/25 09:00 05/08/25 08:26 Pantoprazole Sodium Iv 40 Mg Vial IV PUSH 40 mg Q12H EDDIE Administration Sucralfate 1,000 mg 05/06/25 16:30 05/08/25 11:59 Sucralfate Susp 100 Mg/Ml 10 Ml Udc PO 1,000 mg ACHS EDDIE Administration Radiology Results: ITS Impressions Abdomen/Pelvis CT 05/03/25 16:07 IMPRESSION: Probable perforated duodenal ulcer. No abscess identified. Results discussed with the referring clinician immediately Abdomen X-Ray 05/03/25 17:36 Impression: 1. No acute abnormality. Upper GI Series 05/06/25 09:56 IMPRESSION: 1. Postoperative changes associated with a repair of a perforated ulcer at the first portion of the duodenum with no evident residual extraluminal leakage of contrast. 2. Small sliding-type hiatal hernia with gastroesophageal reflux. Labs Labs: Laboratory Results - last 24 hr 05/07/25 05/08/25 05/08/25 17:03 00:18 04:07 WBC RBC Hgb Hct MCV MCH MCHC RDW Plt Count MPV Sodium Potassium Chloride Carbon Dioxide Anion Gap BUN Creatinine Estim Creat Clear Calc Estimated GFR Glucose POC Capillary Glucose 96 94 94 Calcium Total Bilirubin Direct Bilirubin AST ALT Alkaline Phosphatase Total Protein Albumin 05/08/25 05:42 WBC 7.1 RBC 4.03 L Hgb 11.1 L Hct 36.8 L MCV 91.3 MCH 27.5 MCHC 30.2 L RDW 14.0 Plt Count 169 MPV 10.6 H Sodium 135 L Potassium 4.1 Chloride 108 H Carbon Dioxide 23 Anion Gap 4 BUN 16 Creatinine 0.82 Estim Creat Clear Calc 40 Estimated GFR > 60 Glucose 92 POC Capillary Glucose Calcium 6.4 L Total Bilirubin 0.6 Direct Bilirubin 0.0 AST 28 ALT 22 Alkaline Phosphatase 70 Total Protein 5.3 L Albumin 2.6 L Quality VTE Prophylaxis VTE prophylaxis: mechanical ordered
[2025-05-08] MEDS: ONDANSETRON INJ 4 MG/2 ML VIAL IV PUSH (16:51)
[2025-05-08] MEDS: LOSARTAN POTASSIUM 100 MG TABLET PO (21:03)
[2025-05-08] MEDS: PANTOPRAZOLE 40 MG TABLET PO (21:03)
[2025-05-08] MEDS: HYDROcodone/acetaminophen (*CRX) 5-325 MG TABLET 1 TAB PO (21:19)
[2025-05-08 21:53] LABS: Toxigenic C. Diff NEGATIVE (NEGATIVE)
[2025-05-09] MEDS: HYDROcodone/acetaminophen (*CRX) 5-325 MG TABLET 1 TAB PO ×2 (01:34→09:32)
[2025-05-09 04:30] VITALS: BP 154/65; PULSE 74; RESP 14; TEMP 36.4; O2SAT 100
[2025-05-09] MEDS: SUCRALFATE SUSP 100 MG/ML 10 ML UDC 1000 MG PO (06:26)
[2025-05-09 06:36] LABS: Hematocrit 33.6 % (37.0-47.0); Hemoglobin 10.2 g/dL (12.0-15.0); Mean Corpuscular HGB Conc 30.4 g/dl (32-36); Mean Corpuscular Hemoglobin 27.7 pg (26-34); Mean Corpuscular Volume 91.3 fl (80-100); Platelet Count Result 171 k/mm3 (150-375); Red Blood Count 3.68 M/mm3 (4.2-5.4); White Blood Count 7.2 K/mm3 (4.5-10.0)
[2025-05-09 07:00] LABS: Anion Gap 4 mmol/L (4-12); Blood Urea Nitrogen 17 mg/dL (7-17); Calcium 6.4 mg/dL (8.4-10.2); Carbon Dioxide 24 mmol/L (22-30); Chloride 108 mmol/L (98-107); Estimated CRCL calculation 38 ml/min; Estimated Glomerular Filt Rate > 60; Glucose 97 mg/dL (65-110); Potassium 4.1 mmol/L (3.4-5.0); Sodium 136 mmol/L (137-145)
[2025-05-09 08:07] VITALS: PULSE 81; RESP 14; O2SAT 98
[2025-05-09] MEDS: REVEFENACIN 175 MCG/3 ML 175 EACH INHALATION (08:07)
[2025-05-09] MEDS: BUDESONIDE RESPULE NEB 0.5 MG/2 ML AMP NEBULIZE (08:15)
[2025-05-09 08:19] VITALS: PULSE 79; RESP 14
[2025-05-09] MEDS: FLUCONAZOLE 100 MG TABLET 200 MG PO (09:28)
[2025-05-09] MEDS: ASPIRIN 81 MG ENTERIC TABLET PO (09:28)
[2025-05-09] MEDS: LOPERAMIDE HCL 2 MG CAPSULE 4 MG PO (09:29)
[2025-05-09] MEDS: SACCHAROMYCES BOULARDII 250 MG CAPSULE PO (09:29)
[2025-05-09] MEDS: PANTOPRAZOLE 40 MG TABLET PO (09:29)
[2025-05-09 09:30] VITALS: O2SAT 98
[2025-05-09] MEDS: ENOXAPARIN 30 MG/0.3 ML SYRINGE SUB-Q (09:30)
--- NOTE | 2025-05-09 10:33 | PM.PNGS ---
Progress Note: A&P Assessment and Plan (1) Duodenal perforation: Code(s): K63.1 - Perforation of intestine (nontraumatic) Status: Acute Assessment and Plan: doing well overall, continue PPI, antibiotics, Carafate, okay to DC home from a surgical standpoint, drain removed at bedside Subjective Subjective Date/Time Seen: 05/09/25 10:33 Interval history: feels good overall just some incisional soreness Review of Systems Review of Systems: All systems reviewed & are unremarkable except as noted in HPI and below Exam Const: General: cooperative, comfortable and no acute distress Resp: Auscultation: clear to auscultation bilaterally Cardio: Rate: regular rate Rhythm: regular rhythm GI: Inspection: normal to inspection, non-distended and incision GI Palp: No abdominal tenderness and Yes Soft to palpation Other: SATURNINO was scant serous drainage removed at bedside Objective Data Vital Signs Vital Signs: Vital Signs - 24 hr 05/08/25 11:42 05/08/25 14:00 05/08/25 19:55 Temperature 35.9 C L Pulse Rate 89 80 Respiratory Rate 18 16 Blood Pressure 155/71 H Pulse Oximetry 100 Oxygen Delivery Nasal Cannula Oxygen Flow Rate 2 Fraction of Inspired Oxygen 05/08/25 20:00 05/08/25 20:08 05/08/25 20:08 Temperature Pulse Rate 82 84 84 Respiratory Rate 16 16 16 Blood Pressure Pulse Oximetry 97 Oxygen Delivery Nasal Cannula Oxygen Flow Rate 2 Fraction of Inspired Oxygen 28 05/08/25 20:10 05/08/25 20:13 05/08/25 20:14 Temperature 36.9 C Pulse Rate 80 82 Respiratory Rate 14 16 Blood Pressure 154/78 H Pulse Oximetry 96 97 Oxygen Delivery Nasal Cannula Oxygen Flow Rate 2 Fraction of Inspired Oxygen 05/09/25 04:30 05/09/25 08:07 05/09/25 08:07 Temperature 36.4 C L Pulse Rate 74 81 Respiratory Rate 14 14 Blood Pressure 154/65 H Pulse Oximetry 100 98 Oxygen Delivery Nasal Cannula Oxygen Flow Rate 2 Fraction of Inspired Oxygen 05/09/25 08:19 Temperature Pulse Rate 79 Respiratory Rate 14 Blood Pressure Pulse Oximetry Oxygen Delivery Oxygen Flow Rate Fraction of Inspired Oxygen Intake/Output Intake/Output: Intake & Output 05/06/25 05/07/25 05/08/25 05/09/25 23:59 23:59 23:59 23:59 Intake Total 2598 1610 390 550 Output Total 9690 1620 330 50 Balance 833 -10 60 500 Meds/Results Medications: Active Medications Generic Name Dose Route Start Last Admin Trade Name Freq PRN Reason Stop Dose Admin Hydrocodone Bitart/Acetaminophen 1 tab 05/07/25 12:13 05/09/25 09:32 Hydrocodone/Acetaminophen (*Crx) 5-325 Mg Tablet PO 1 tab Q4H PRN Administration Pain Rated 4-6 Hydrocodone Bitart/Acetaminophen 1 tab 05/07/25 12:13 Hydrocodone/Acetaminophen (*Crx) 10-325 Mg Tablet PO Q6H PRN Pain Rated 7-10 Amiloride HCl 5 mg 05/09/25 09:00 05/09/25 09:28 Amiloride Hcl 5 Mg Tablet PO 5 mg DAILY EDDIE Administration Amoxicillin/Clavulanate Potassium 1 tablet 05/07/25 21:00 05/09/25 09:28 Amoxicillin/Clavulanate K 875-125 Mg Tab PO 1 tablet Q12HR EDDIE Administration Aspirin 81 mg 05/09/25 09:00 05/09/25 09:28 Aspirin 81 Mg Enteric Tablet PO 81 mg QAM EDDIE Administration Budesonide 0.5 mg 05/07/25 20:30 05/09/25 08:15 Budesonide Respule Neb 0.5 Mg/2 Ml Amp NEBULIZE 0.5 mg Q12HRT EDDIE Administration Dextrose 12.5 gm 05/03/25 20:21 Dextrose 50% 25 Gm/50 Ml Syringe IV PUSH PRN PRN Hypoglycemia Protocol Duloxetine HCl 20 mg 05/07/25 17:00 05/09/25 09:28 Duloxetine Hcl 20 Mg Capsule.Dr PO 20 mg BID EDDIE Administration Enoxaparin Sodium 30 mg 05/05/25 09:00 05/09/25 09:30 Enoxaparin 30 Mg/0.3 Ml Syringe SUB-Q 30 mg DAILY EDDIE Administration Fluconazole 200 mg 05/08/25 09:00 05/09/25 09:28 Fluconazole 100 Mg Tablet PO 200 mg QAM EDDIE Administration Fluticasone Propionate 2 spray 05/03/25 19:35 05/09/25 09:32 Fluticasone Propionate 0.05% Na Spr 16 Gm Btl (*Bkc) NASAL Not Given BID EDDIE Glucagon 1 mg 05/03/25 20:21 Glucagon For Inj 1 Mg Vial IM PRN PRN Hypoglycemia Protocol Glucose 15 gm 05/03/25 20:21 Glucose Oral Gel 15 Gm Of Glucse In 37.5 Gm Tube PO PRN PRN Hypoglycemia Protocol Hydrochlorothiazide 50 mg 05/09/25 09:00 05/09/25 09:29 Hydrochlorothiazide 25 Mg Tablet PO 50 mg QAM EDDIE Administration Hydromorphone HCl 1 mg 05/04/25 18:20 05/06/25 08:22 Hydromorphone Hcl Inj (*Crx) 1 Mg/Ml Syr IV PUSH 1 mg Q2H PRN Administration Breakthrough Pain Rated 7-10 or NPO Hydromorphone HCl 0.5 mg 05/04/25 18:20 05/07/25 06:26 Hydromorphone Hcl Inj (*Crx) 1 Mg/Ml Syr IV PUSH 0.5 mg Q2H PRN Administration Breakthrough Pain Rated 4-6 or NPO Dextrose 1,000 mls @ 100 mls/hr 05/03/25 20:21 Dextrose 5% 1,000 Ml IVPB PRN PRN Hypoglycemia Protocol Losartan Potassium 100 mg 05/07/25 21:00 05/08/25 21:03 Losartan Potassium 100 Mg Tablet PO 100 mg HS EDDIE Administration Metronidazole 500 mg 05/07/25 14:00 05/09/25 06:26 Metronidazole 500 Mg Tablet PO 500 mg Q8HR EDDIE Administration *Home Med* 175 mcg 05/07/25 20:35 05/09/25 08:07 Revefenacin [Yupelri INHALATION 06/06/25 20:34 175 mcg ] 175 Mcg/3 Ml DAILYRT EDDIE Administration Solution For Nebulization) *Home Med* 15 mcg 05/07/25 20:35 05/08/25 19:55 Arformoterol 15 Mcg/ INHALATION 06/06/25 20:34 15 mcg 2 Ml Solution For Q12HRT EDDIE Administration Nebulization Ondansetron HCl 4 mg 05/03/25 17:22 05/08/25 16:51 Ondansetron Inj 4 Mg/2 Ml Vial IV PUSH 4 mg Q4H PRN Administration Nausea Pantoprazole Sodium 40 mg 05/08/25 21:00 05/09/25 09:29 Pantoprazole 40 Mg Tablet PO 40 mg Q12HR EDDIE Administration Saccharomyces Boulardii 250 mg 05/09/25 09:00 05/09/25 09:29 Saccharomyces Boulardii 250 Mg Capsule PO 250 mg BID EDDIE Administration Sucralfate 1,000 mg 05/06/25 16:30 05/09/25 06:26 Sucralfate Susp 100 Mg/Ml 10 Ml Udc PO 1,000 mg ACHS EDDIE Administration Radiology Results: ITS Impressions Abdomen/Pelvis CT 05/03/25 16:07 IMPRESSION: Probable perforated duodenal ulcer. No abscess identified. Results discussed with the referring clinician immediately Abdomen X-Ray 05/03/25 17:36 Impression: 1. No acute abnormality. Upper GI Series 05/06/25 09:56 IMPRESSION: 1. Postoperative changes associated with a repair of a perforated ulcer at the first portion of the duodenum with no evident residual extraluminal leakage of contrast. 2. Small sliding-type hiatal hernia with gastroesophageal reflux. Labs Labs: Laboratory Results - last 24 hr 05/08/25 05/09/25 18:53 06:04 WBC 7.2 RBC 3.68 L Hgb 10.2 L Hct 33.6 L MCV 91.3 MCH 27.7 MCHC 30.4 L RDW 13.9 Plt Count 171 MPV 10.6 H Sodium 136 L Potassium 4.1 Chloride 108 H Carbon Dioxide 24 Anion Gap 4 BUN 17 Creatinine 0.86 Estim Creat Clear Calc 38 Estimated GFR > 60 Glucose 97 Calcium 6.4 L C. difficile (PCR) Negative
--- NOTE | 2025-05-09 12:53 | P.DS_ITS ---
DS: Admitting Diagnosis Discharge Date 05/09/2025 Admitting Diagnosis duodenal perforation DS: Discharge Diagnosis Discharge Diagnosis (1) Duodenal perforation: Code(s): K63.1 - Perforation of intestine (nontraumatic) Status: Acute Assessment and Plan: Patient presented to the ED is abdominal pain that became severe today after eating. No episodes of emesis. Abdominal pelvic CT revealed posterior extraluminal air adjacent to the duodenum; suspicious for perforated duodenal ulcer. No abscess noted. * NPO * NGT placed * Meropenem started due to patient's allergies to several antibiotics * pantoprazole 40 mg IVP q.12 * control pain with morphine p.r.n. * general surgery consulted * no plans for surgery at this time * Follow surgery for any further recommendations * Upper GI series: External contrast extravasation through a small perforated ulcer at the duodenal bulb. Small sliding-type hiatal hernia. * Post op (05/05/25) Laparoscopic repair of perforated duodenal ulcer with omental Dario patch. * GI Series: Postoperative changes associated with a repair of a perforated ulcer at the first portion of the duodenum with no evident residual extraluminal leakage of contrast. Small sliding-type hiatal hernia with gastroesophageal reflux. * s/p NPO along with NG tube suction * + Flatus, + bowel movement (diarrhea) * Encourage ambulation * regular diet, patient tolerating * PT/OT recommended HHC on discharge, patient not interested * patient having diarrhea still, check stool for c-diff, negative for c-diff * general surgery cleared patient for discharge home (2) SIRS (systemic inflammatory response syndrome): Code(s): R65.10 - Systemic inflammatory response syndrome (SIRS) of non-infectious origin without acute organ dysfunction Status: Acute Assessment and Plan: meets SIRS criteria due to HR >90, WBC greater than 12 * 30 mL/kg = 1830 mL. 2 L total given in ED * suspected source: Perforated duodenal ulcer * started on meropenem on 05/03 * blood cultures drawn on 05/03 * UA: Culture pending. Currently covered with meropenem * CXR: No acute cardiopulmonary processes * see above for CT results regarding perforated duodenal ulcer. * Mg 1.6 * lactic acid 0.9 * Leukocytosis resolved (3) GERD (gastroesophageal reflux disease): Qualifiers: Esophagitis bleeding: without hemorrhage Esophagitis presence: with esophagitis Qualified Code(s): K21.00 - Gastro-esophageal reflux disease with esophagitis, without bleeding Code(s): K21.9 - Gastro-esophageal reflux disease without esophagitis Status: Chronic Assessment and Plan: * Omeprazole 40 mg at home with history of PUD * pantoprazole 40 mg IV q.12 * change protonix to PO (4) Chronic obstructive pulmonary disease: Qualifiers: COPD type: unspecified COPD Qualified Code(s): J44.9 - Chronic obstructive pulmonary disease, unspecified Code(s): J44.9 - Chronic obstructive pulmonary disease, unspecified Status: Chronic Assessment and Plan: * Not currently in exacerbation. * albuterol nebulizer p.r.n. * arformoterol nebulizer b.i.d. * revefenacin nebulizer daily (5) Depression with anxiety: Code(s): F41.8 - Other specified anxiety disorders Status: Chronic Assessment and Plan: * Continue duloxetine 20 mg b.i.d. (6) Essential (primary) hypertension: Code(s): I10 - Essential (primary) hypertension Status: Chronic Assessment and Plan: * continue PO losartan * restart home med amiloride 5 mg-hydrochlorothiazide 50 mg * monitor blood pressure and adjust as indicated (7) Abnormal urinalysis: Code(s): R82.90 - Unspecified abnormal findings in urine Status: Acute Assessment and Plan: - UA: Trace leukocyte esterase, 11-20 WBCs - UC obtained on 05/03, UC with 10-25k colonies enterococcus faecalis, colon ization, no need for treatment - Bladder scan p.r.n. DS: Summary Hospital Course Reason for hospitalization: duodenal perforation Hospital Course: Patient is a 84 year old female with PMH of CKD 3, HTN, depression with anxiety, HLD, COPD and GERD. Patient presented to the ER with complaints of right upper abdominal pain x 3 days that became severe that day after she ate lunch. Patient's labs in the ER showed wbc 29, lactic acid 2.4 and lipase 390. UA showed trace leukocyte esterase and wbc 11-20. CT of the abdomen and pelvis showed nonobstructing renal calculi bilaterally. Esophageal thickening, diverticulosis without diverticulitis and posterior extraluminal air adjacent to the duodenum; suspicious for perforated duodenal ulcer. No abscess noted. General surgery was consulted and recommended conservative management with NGT placement and IV Meropenem. Patient completed an upper GI series on 05/04/2025 which showed external contrast extravasation through a small perforated ulcer at the duodenal bulb. Patient was taken to the OR on 05/05/2025 for a laparoscopic repair of perforated duodenal ulcer with omental Dario patch by general surgery. Patient remained NPO with an NG tube to LIWS. Patient completed an upper GI series on 05/06/2025 which showed postoperative changes associated with repair of a perforated ulcer at the first portion of the duodenum with no evident residual extraluminal leakage of contrast. Patient's diet was advanced to a regular diet. Patient had positive flatus and bowel movements. Patient was reporting diarrhea, stool was checked for c-diff and was negative. Patient was evaluated by PT/OT and recommended to discharge home with HHC, however patient denied HHC on discharge. Patient was cleared for discharge by general surgery. Patient will discharge home on fluconazole 200 mg PO x 5 days, sucralfate 1 gram PO ACHS, Protonix 40 mg BID and Jefferson PRN for pain. Patient will follow up with Dr. Alexandra in 2 weeks. Patient will call her PCP for an appointment to be seen within 1-2 weeks of discharge. Time Spent with Patient Time attestation: Total time spent providing and/or coordinating discharge services: 40 Minutes Exam Narrative: GENERAL: non-toxic appearing, in no acute distress. HEAD: Normocephalic, atraumatic. EYES: PERRLA. Conjunctivae clear. THROAT: Pharynx clear, no exudate. NECK: Trachea midline. No adenopathy, no masses. RESPIRATORY: Airway patent, respirations nonlabored. CTA. CARDIOVASCULAR: Regular rate and rhythm. GASTROINTESTINAL: Abdomen is soft and mildly tender with palpation to the right upper quadrant, post surgical. No organomegaly. Bowel sounds normal in all quadrants. GENITOURINARY: Urine catheter patent, draining MUSCULOSKELETAL: Moves all extremities. No gross deformities. Moves all extremities well. No calf tenderness. SKIN: Incisions clean and dry, intact, minimal bruising. Warm, dry, normal color. NEURO: A&O X4. Speech clear PSYCHIATRIC: Normal interaction DS: Data Data Completed and Pending Labs on day of discharge: Labs from last 24 hours 05/09/25 05/08/25 06:04 18:53 WBC 7.2 RBC 3.68 L Hgb 10.2 L Hct 33.6 L MCV 91.3 MCH 27.7 MCHC 30.4 L RDW 13.9 Plt Count 171 MPV 10.6 H Sodium 136 L Potassium 4.1 Chloride 108 H Carbon Dioxide 24 Anion Gap 4 BUN 17 Creatinine 0.86 Estim Creat Clear Calc 38 Estimated GFR > 60 Glucose 97 Calcium 6.4 L C. difficile (PCR) Negative Preliminary micro results at discharge 05/03/25 21:51 Blood Culture - Preliminary Blood 05/03/25 21:51 Blood Culture - Preliminary Blood Imaging Radiologist's impression: Ordering Physician: Evaristo Olvera MD Date of Service: 05/03/25 Procedure(s): CT abdomen pelvis w con Accession Number(s): [id number] cc: Evaristo Olvera MD~ Elisabet Quan EXAMINATION: CT abdomen pelvis w con COMPARISON: None HISTORY: Abdominal pain TECHNIQUE: Axial images were obtained through the abdomen, pelvis post administration of IV contrast. Oral contrast was also administered. Coronal reconstruction images were obtained from the axial views. CT scan performed using dose optimization techniques including the following automated exposure control; adjustment of mA and/or kV; use of iterative reconstruction technique. Automatic exposure control was used to reduce radiation dose. Permanent radiation dose record is archived to PACS. FINDINGS: CT abdomen: LUNG BASES: The lung bases are clear. The visualized portions of the heart and pericardium are unremarkable. LIVER: Mild hepatic steatosis. Portal vein patent. No intrahepatic biliary duct dilatation. SPLEEN: Unremarkable. KIDNEYS: Right Kidney: Right kidney renal calculi the largest mid pole 3 mm, no hydronephrosis, simple appearing renal cysts the largest mid pole 4 x 4 cm. Left Kidney: Left kidney renal calculi the largest mid pole 10 x 11 mm, no hydronephrosis. ADRENAL GLANDS: Unremarkable. PANCREAS: Unremarkable. GALLBLADDER/BILIARY: Mild hyperemia of the gallbladder. STOMACH AND ESOPHAGUS: Thickening of the esophagus may represent mild esophagitis. Hyperemia of the distal stomach and proximal duodenum noted. BOWEL/MESENTERY: Moderate diverticulosis, no colitis or diverticulitis. Appendix normal. There is stranding within the mesentery in the right upper quadrant. There are tiny posterior extraluminal air noted adjacent to the duodenum. No thickened or dilated loops of small bowel otherwise appreciated. ADENOPATHY/RETROPERITONEUM: No lymphadenopathy. AORTA/VASCULATURE: Normal caliber aorta. FREE FLUID OR FREE AIR: Scattered foci of intra-abdominal free air. No free fluid.. CT pelvis: SOLID ORGANS/REPRODUCTIVE: Uterus atrophic with subcentimeter probable calcified fibroid. Cystic left ovarian lesion 2.5 x 2.5 cm incompletely evaluated, outpatient pelvic ultrasound recommended. BLADDER: Within normal limits. OSSEOUS STRUCTURES: No acute osseous abnormality.No suspicious lesions. OVERLYING SOFT TISSUES: Unremarkable. IMPRESSION: Probable perforated duodenal ulcer. No abscess identified. Results discussed with the referring clinician immediately Reviewed, dictated and finalized at location P. Ordering Physician: Eugene Alexandra DO Date of Service: 05/04/25 Procedure(s): XR UGI water soluble wo laurenb Accession Number(s): [id number] cc: Christy Gallardo PA-C; David Hercules MD; Eugene Alexandra DO~ EXAMINATION: XR UGI water soluble wo kub DATE: 05/04/2025 10:56 INDICATION: Perforated duodenal ulcer TECHNIQUE: Water-soluble contrast was administered through the patient's existing nasogastric tube. Initial imaging demonstrated contrast extending primarily into the distal esophagus through the proximal side-port just above level of the gastroesophageal junction. The nasogastric tube was advanced and additional 5 cm and additional contrast was administered vertebral measured volume of 100 mL Gastrografin water-soluble contrast. Fluoroscopic images were obtained with the patient in the supine position and in the right lateral decubitus position. A total of 12 fluoroscopic images of the esophagus, stomach, and proximal small bowel were obtained. Fluoroscopy exposure time was 1.8 minutes. Total DAP was 14 Gycm^2. COMPARISON: CT dated 05/03/2025 FINDINGS: There is a small sliding-type hiatal hernia. The stomach appears normal. There is contrast extravasation which extends through a 3 mm defect in the wall of the duodenal bulb with contrast extending laterally along the infer ior margin of the right hepatic lobe. IMPRESSION: 1. External contrast extravasation through a small perforated ulcer at the duodenal bulb. 2. Small sliding-type hiatal hernia. Reviewed, dictated and finalized at location A. Ordering Physician: Eugene Alexandra DO Date of Service: 05/06/25 Procedure(s): XR UGI water soluble wo kub Accession Number(s): [id number] cc: Christy Gallardo PA-C; David Hercules MD; Eugene Alexandra DO~ EXAMINATION: XR UGI water soluble wo kub DATE: 05/06/2025 09:53 INDICATION: Perforated duodenal ulcer post repair TECHNIQUE: 200 mL water-soluble contrast was administered through the patient's existing nasogastric tube. A total of 25 fluoroscopic images and 2 overhead radiographs of the distal esophagus, stomach, and proximal small bowel were obtained. Fluoroscopy exposure time was 1.7 minutes. Total DAP was 15.397 Gy cm^2. COMPARISON: 05/04/2025 FINDINGS: Interval postoperative changes are seen with right upper quadrant surgical drain which extends across the midline with distal tip in the left epigastric region and bilateral superficial abdominal wall soft tissue gas. Nasogastric tube tip at the gastric antrum with proximal side-port in the body the stomach. There is a small sliding-type hiatal hernia with gastroesophageal reflux was observed along side the nasogastric tube extending to the midesophagus. Contrast extends into the duodenum and proximal jejunum. There are some residual oral contrast material more distally in the small bowel. There is irregular mucosal contour at the duodenal bulb likely representing the site of duodenal ulcer and subsequent repair. No evident noncontained extraluminal extravasation of contrast. IMPRESSION: 1. Postoperative changes associated with a repair of a perforated ulcer at the first portion of the duodenum with no evident residual extraluminal leakage of c ontrast. 2. Small sliding-type hiatal hernia with gastroesophageal reflux. Reviewed, dictated and finalized at location A. Discharge Plan Discharge Attending physician on discharge: Frankie Zhang Consulting providers: Robert Miller; Eugene Alexandra; Julissa Ang; Fernanda Toussaint; Ron Arias; Shelia Dos Santos; Frankie Olsen; Killian Garcia Discharging Clinician: Ngoc Barnes Patient Disposition: Home Activity: other - see discharge instructions Diet: regular Wound Care Instructions: other - see discharge instructions Discharge Instructions: Postoperative Instructions: Remove bandage at drain site in 24 hours and may shower. Re-apply bandage daily as needed for any open wound or drainage. No lifting >10 lbs for [address] in 3 days if no longer taking narcotic pain meds Call office for fevers, increasing pain, inability to tolerate food or liquids, or problems with incisions You can purchase the probiotic listed on your medication list at the drugstore or grocery store. Name brands include culturelle or florastor, you can also purchase a store brand equivalent. Patient Instructions: Antibiotic Form Patient Language: Kiswahili Stand Alone Forms: General Discharge Information Follow-up/Referrals: Eugene Alexandra DO [Physician, General Surgery] - 2 Weeks Discharge Medications: New fluconazole 200 mg tablet 200 mg PO DAILY 5 Days Qty: 5 0RF hydrocodone-acetaminophen 5-325 mg tablet 1 tablet PO Q4H PRN (Reason: pain) Qty: 10 0RF sucralfate [Carafate] 1 gram tablet 1 g PO ACHS Qty: 120 0RF pantoprazole 40 mg tablet,delayed release (DR/EC) 40 mg PO BID Qty: 60 5RF Continued Probiotic 3 billion cell capsule 3,000 mmu cells PO DAILY Rx Instructions: administer with a meal conjugated estrogens 0.625 mg/gram cream 0.3125 mg vaginal DAILY Qty: 30 0RF (DME) Aerochamber MV Spacer See Rx Instructions .ROUTE .MEDSUPPLY Qty: 1 0RF Rx Instructions: As directed psyllium husk [Daily Fiber] 0.4 gram capsule 0.4 g PO DAILY fluticasone propionate [Flonase Allergy Relief] 50 mcg/actuation spray,suspension 2 spray intranasal BID Qty: 48 3RF Rx Instructions: administer into each nostril. Aim back/up/out aspirin 81 mg tablet 81 mg PO DAILY (DME) [facility] See Rx Instructions .Route .MEDSUPPLY Qty: 1 0RF Rx Instructions: As directed for administration by [facility] albuterol sulfate 2.5 mg /3 mL (0.083 %) solution for nebulization See Rx Instructions .ROUTE .COMPLEX Qty: 30 11RF Dose Instruction: USE 1 VIAL IN NEBULIZER DAILY - (For Rescue) Rx Instructions: USE 1 VIAL IN NEBULIZER DAILY - (For Rescue) clobetasol 0.05 % cream 1 applic topical DAILY Qty: 60 0RF Rx Instructions: Apply thin layer sparingly to affected area cholecalciferol (vitamin D3) 1,250 mcg (50,000 unit) capsule 1,250 mcg PO MONTHLY arformoterol 15 mcg/2 mL solution for nebulization See Rx Instructions .ROUTE .COMPLEX Qty: 60 11RF Dose Instruction: USE 1 VIAL IN NEBULIZER TWICE DAILY - morning and evening Rx Instructions: USE 1 VIAL IN NEBULIZER TWICE DAILY - morning and evening budesonide 0.5 mg/2 mL suspension for nebulization See Rx Instructions .ROUTE .COMPLEX Qty: 60 11RF Dose Instruction: USE 1 VIAL IN NEBULIZER TWICE DAILY - rinse mouth after treatment Rx Instructions: USE 1 VIAL IN NEBULIZER TWICE DAILY - rinse mouth after treatment Yupelri 175 mcg/3 mL solution for nebulization See Rx Instructions .ROUTE .COMPLEX Qty: 30 11RF Dose Instruction: USE 1 VIAL IN NEBULIZER DAILY - - DO NOT MIX WITH OTHER NEBULIZER MEDICATION Rx Instructions: USE 1 VIAL IN NEBULIZER DAILY - - DO NOT MIX WITH OTHER NEBULIZER MEDICATION amiloride-hydrochlorothiazide 5-50 mg tablet 1 tablet PO HS Qty: 90 1RF losartan 100 mg tablet 100 mg PO HS Qty: 90 1RF Discontinued omeprazole 40 mg capsule,delayed release(DR/EC) 40 mg PO DAILY Qty: 90 3RF No Action duloxetine 20 mg capsule,delayed release(DR/EC) 20 mg PO BID Qty: 60 4RF Date of admission: 05/03/25 17:43 Primary Care Provider: Christy Gallardo Admitting Provider: David Hercules Attending physician on admission: Ngoc Barnes Condition: Stable Quality VTE Prophylaxis VTE prophylaxis: mechanical ordered
== END 2025-05-09 13:24 | disposition home or self-care (01) | DRG 327 ==
LOC: ANHED 17:25 → ANH3MEDSUR 18:28
PROVIDERS: Nurse Practitioner Adult Health; Surgery; Admitting Provider Family Medicine; Emergency Provider Emergency Medicine; PCP Student in an Organized Health Care Education/Training Program; Visit Provider Nurse Practitioner Adult Health
PROC: 0DQ64ZZ Repair Stomach, Percutaneous Endoscopic Approach (ICD-10-PCS; CPT 43659; principal; 2025-05-04 16:00)
DX: K26.5 Chronic or unspecified duodenal ulcer with perforation (principal); R65.10 Systemic inflammatory response syndrome (SIRS) of non-infectious origin without acute organ dysfunction; I12.9 Hypertensive chronic kidney disease with stage 1 through stage 4 chronic kidney disease, or unspecified chronic kidney disease; N18.30 Chronic kidney disease, stage 3 unspecified; E55.9 Vitamin D deficiency, unspecified; E78.2 Mixed hyperlipidemia; E53.8 Deficiency of other specified B group vitamins; J44.9 Chronic obstructive pulmonary disease, unspecified; K57.30 Diverticulosis of large intestine without perforation or abscess without bleeding; R19.7 Diarrhea, unspecified; M15.9 Polyosteoarthritis, unspecified; G47.34 Idiopathic sleep related nonobstructive alveolar hypoventilation; F32.A Depression, unspecified; F41.9 Anxiety disorder, unspecified; Z99.81 Dependence on supplemental oxygen; Z79.891 Long term (current) use of opiate analgesic; Z87.442 Personal history of urinary calculi; Z87.891 Personal history of nicotine dependence; Z79.82 Long term (current) use of aspirin
CPT/HCPCS: 36415; 74177; 74240; 80048; 80053; 80076; 81001; 82948; 83605; 83690; 83735; 84145; 85025; 85027; 87040; 87086; 87186; 87493; 94640; 96361; 96374; 96375; 97161; 97166; 99285; A9270; J0616; J1100; J1171; J1650; J2185; J2248; J2270; J2371; J2405; J2470; J2704; J3480; J7030; J7120; Q9967

== ENCOUNTER 2025-06-05 13:50 | Outpatient (CLI) | payer MEDICARE, OTHER, SELFPAY ==
--- NOTE | ~2025-06-05 | MM_ITS ---
EXAMINATION: MM screening [facility] BI w cynthia HISTORY: Screening TECHNIQUE: Craniocaudal and mediolateral oblique 3-D tomosynthesis images were obtained and synthetic 2-D images were generated. CAD analysis was submitted and interpreted. COMPARISON: Comparison to multiple prior studies sequentially, with oldest reviewed study dated 10/16/2018. BREAST PARENCHYMAL COMPOSITION: Not dense: There are scattered areas of fibroglandular density. FINDINGS: There is no evidence of suspicious mass, calcification, or architectural distortion to suggest malignancy in either breast. There has been no suspicious interval change. IMPRESSION: 1. No mammographic evidence of malignancy. 2. Recommend routine screening mammography in one year. BI-RADS CATEGORY 1 - NEGATIVE Reviewed, dictated and finalized at location B. NTIFIC GLASS BLOWER
--- OUTSIDE RECORDS SUMMARY | 2025-06-05 18:13 | XMS_ITS | Clinical Summary ---
Author Organization [facility] Address [address] [place] [address] Care Team Providers Care Big 6 Dealer Name Role Phone Nubia Bradford MD Primary Care Provider [phone] Allergies Active Allergy Reactions Criticality Noted Date [...] T PO QD 4 7 Active FLUAD 0934-2370, 67 YR UP,,PF, 45 mcg (15 mcg [...] Prevention Take 1 tablet by mouth. 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 Gender Identity Not on file Sexual Orientation Not on file Last Filed Vital Signs Vital Sign Reading Time Taken Comments Blood Pressure 153/68 01/17/2022 1:26 PM CDT Pulse 77 01/17/2022 1:26 PM CDT Temperature - - Respiratory Rate 16 01/17/2022 1:26 PM CDT Oxygen Saturation - - Inhaled Oxygen Concentration - - Weight 61.2 kg (135 lb) 09/17/2018 3:27 PM CONDENSER TUBE TENDER Height 162.6 cm (5' 4) 09/17/2018 3:27 PM CONDENSER TUBE TENDER Body Mass Index 23.17 09/17/2018 3:27 PM CONDENSER TUBE TENDER Plan of Treatment Not on [place] [address] [employer] [place] [address] MeMeMe Care Teams Big 6 Dealer Relationship Specialty Start Date End Date Nubia Bradford MD PCP - General Family Medicine 09/21/22
--- OUTSIDE RECORDS SUMMARY | 2025-06-05 18:19 | XMS_ITS | Encounter Summary ---
Author Organization [facility] Address [address] [place] [address] Care Team Providers Care Filler Machine Operator Name Role Phone Kennedy Benson MD Primary Care Provider [phone] Nubia Bradford MD Primary Care Provider [phone] Encounter Details Date Type Department Care Team (Late st Contact Info) Description 01/03/2021 Telephone [facility] ([facility]) [address] [place] [id number] Barbie Banks, RT Social History Tobacco Use Types Packs/Day Years Used Date Smoking Tobacco: Former Smokeless Tobacco: Former Alcohol Use Standard Drinks/Week Comments Yes 0 (1 standard drink = 0.6 oz pur e alcohol) Comments Unknown Sex and Gender Information Value Date Recorded Sex Assigned at Not on file 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
--- OUTSIDE RECORDS SUMMARY | 2025-06-05 18:19 | XMS_ITS | Clinical Summary ---
Author Organization [facility] Address [address] [place] [address] Care Team Providers Care Nail Setter Name Role Phone Unavailable Primary Care Provider [...] Pain. Active fluticasone propionate (FLONASE) 50 mcg/spray [place], Suspension nasal inhaler Administer 2 Sprays in each nostril daily. Active Active Problems Problem Noted Date Diagnosed Date Anxiety 05/03/2024 COPD (chronic obstructive pulmonary disease) 01/2024 Encounters Date Type Department Care Team Description 04/07/2025 External Device Data [facility] ABSTRACTION Provider, Abstract from Last 3 Months Social History Tobacco Use Types Packs/Day Years Used Date Smoking Tobacco: Former Cigarettes 2 45 1 963 - 2007 Tobacco Cessation:Counseling Given: Not Answered Comments Unknown [...] 2025 Insurance MEDICARE PART A AND B [employer] [facility]
== END 2025-06-05 13:51 | disposition home or self-care (01) ==
LOC: ANHFOHIMG 13:51
PROVIDERS: PCP Student in an Organized Health Care Education/Training Program; Visit Provider Family Medicine
DX: Z12.31 Encounter for screening mammogram for malignant neoplasm of breast (principal)
CPT/HCPCS: 77063; 77067

== ENCOUNTER 2025-06-30 03:33 | Day surgery (SDC) | payer MEDICARE, OTHER, SELFPAY ==
[2025-06-17 08:35] VITALS: BMI 22.5
--- OUTSIDE RECORDS SUMMARY | 2025-06-30 03:38 | XMS_ITS | Clinical Summary ---
Author Organization [facility] [place] [facility] Address [address] [place] [address] Care Team Providers Care Blocker Heated Metal Forms Name Role Phone Nubia Bradford MD Primary Care Provider Allergies Active Allergy Reactions Criticality Noted Date [...] T PO QD 4 7 Active FLUAD 1188-7909, 67 YR UP,,PF, 45 mcg (15 mcg [...] Prevention Take 1 tablet by mouth. 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 Gender Identity Not on file Sexual Orientation Not on file Last Filed Vital Signs Vital Sign Reading Time Taken Comments Blood Pressure 153/68 01/17/2022 1:26 PM CDT Pulse 77 01/17/2022 1:26 PM CDT Temperature - - Respiratory Rate 16 01/17/2022 1:26 PM CDT Oxygen Saturation - - Inhaled Oxygen Concentration - - Weight 61.2 kg (135 lb) 09/17/2018 3:27 PM SECTION 8 PROPERTY MANAGER Height 162.6 cm (5' 4) 09/17/2018 3:27 PM SECTION 8 PROPERTY MANAGER Body Mass Index 23.17 09/17/2018 3:27 PM SECTION 8 PROPERTY MANAGER Plan of Treatment Not on file Insurance MEDICARE [employer]ARE [employer] Care Teams Blocker Heated Metal Forms Relationship Specialty Start Date End Date Nubia Bradford MD PCP - General Family Medicine 09/21/22
--- OUTSIDE RECORDS SUMMARY | 2025-06-30 03:38 | XMS_ITS | Clinical Summary ---
[facility] Organization [facility] Address [address] [place] [address] Care Team Providers Care Environmental Programs Manager Name Role Phone Unavailable Primary Care Provider [...] Pain. Active fluticasone propionate (FLONASE) 50 mcg/spray [place], Suspension nasal inhaler Administer 2 Sprays in [...] 2025 Insurance MEDICARE PART A AND B [employer] [facility] Address: [address] [facility] [place] [address]
--- OUTSIDE RECORDS SUMMARY | 2025-06-30 03:38 | XMS_ITS | Encounter Summary ---
Author Organization 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 Name Role Phone Kennedy Benson MD Primary Care Provider [phone] Nubia Bradford MD Primary Care Provider [phone] Encounter Details Date Type Department Care Team (Late st Contact Info) Description 01/03/2021 Telephone [facility] ([facility]) [address] [place] [id number] Barbie Banks, RT Social History Tobacco Use Types Packs/Day Years Used Date Smoking Tobacco: Former Smokeless Tobacco: Former Alcohol Use Standard Drinks/Week Comments Yes 0 (1 standard drink = 0.6 oz pur e alcohol) Comments Unknown Sex and Gender Information Value Date Recorded Sex Assigned at Not on file Legal Sex Female 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
[2025-06-30 08:20] VITALS: BP 146/72; PULSE 85; RESP 18; TEMP 36.7; O2SAT 100; BMI 23.0
--- NOTE | 2025-06-30 08:31 | WPDANESEPPF ---
Anes - Initial Pre Proc Eval Procedure: Operation Date: 06/30/25 09:30 Proposed Procedures p Esophagogastroduodenoscopy EGD - Eugene Alexandra DO Date/Time: 06/30/25 08:31 Surgeon: Eugene Alexandra DO Pre Op Diagnosis: Follow up on perforated Duodenal ulcer Patient Data Age: 84 Gender: F Height: 1.63 m Weight: 60.9 kg Last Vital Signs Temp 36.7 C 06/30/25 08:20 Pulse 85 06/30/25 08:20 Resp 18 06/30/25 08:20 BP 146/72 H 06/30/25 08:20 Pulse Ox 100 06/30/25 08:20 O2 Del Method Room Air 06/30/25 08:20 Allergies Allergy/AdvReac Type Severity Reaction Status Date / Time amoxicillin Allergy Unknown Gastrointestinal Verified 06/30/25 08:27 Upset cefdinir Allergy Unknown Gastrointestinal Verified 06/30/25 08:27 Upset fosinopril Allergy Unknown Gastrointestinal Verified 06/30/25 08:27 Upset Sulfa (Sulfonamide Allergy Unknown Gastrointestinal Verified 06/30/25 08:27 Antibiotics) Upset sulfamethizole Allergy Unknown Gastrointestinal Verified 06/30/25 08:27 Upset trimethoprim Allergy Unknown Gastrointestinal Verified 06/30/25 08:27 Upset promethazine AdvReac Severe Jittery Verified 06/30/25 08:27 Home Medications ?Medication ?Instructions ?Recorded ?Confirmed ?Type lactobacillus combination no.4 3 3,000 mmu cells PO DAILY 03/02/21 06/30/25 History billion cell capsule (Probiotic) inhalational spacing device #1 ea 12/06/21 06/19/25 Rx (Aerochamber MV spacer) conjugated estrogens 0.625 mg/gram 0.3125 mg vaginal DAILY #30 grams 11/24/22 06/30/25 Rx vaginal cream psyllium husk 0.4 gram capsule 0.4 g PO DAILY 01/30/23 06/30/25 History (Daily Fiber) [facility] for Prolia #1 ea 08/07/23 06/19/25 Rx albuterol sulfate 2.5 mg/3 mL See Rx Instructions .Route 11/29/23 06/30/25 Rx (0.083 %) solution for nebulization .COMPLEX #30 vials clobetasol 0.05 % topical cream 1 applic topical DAILY #60 grams 12/11/23 06/30/25 Rx cholecalciferol (vitamin D3) 1,250 1,250 mcg PO MONTHLY 09/03/24 06/30/25 History mcg (50,000 unit) capsule arformoterol 15 mcg/2 mL solution See Rx Instructions .Route 09/29/24 06/30/25 Rx for nebulization .COMPLEX #60 ea budesonide 0.5 mg/2 mL suspension See Rx Instructions .Route 09/29/24 06/30/25 Rx for nebulization .COMPLEX #60 ea revefenacin 175 mcg/3 mL solution See Rx Instructions .Route 11/05/24 06/30/25 Rx for nebulization (Yupeshortyi) .COMPLEX #30 vials losartan 100 mg tablet 100 mg PO HS #90 tabs 04/09/25 06/30/25 Rx hydrocodone 5 mg-acetaminophen 325 1 tablet PO Q4H PRN pain #10 tabs 05/08/25 06/19/25 Rx mg tablet pantoprazole 40 mg tablet,delayed 40 mg PO BID #60 tabs 05/08/25 06/30/25 Rx release duloxetine 20 mg capsule,delayed 20 mg PO BID #60 caps 05/10/25 06/30/25 Rx release omeprazole 40 mg capsule,delayed 40 mg PO DAILY 06/17/25 06/30/25 History release amiloride 5 mg-hydrochlorothiazide See Rx Instructions .Route 06/19/25 06/30/25 Rx 50 mg tablet .COMPLEX #90 tabs ipratropium bromide 21 mcg (0.03 2 spray intranasal .qd-tid #30 mL 06/19/25 06/30/25 Rx %) nasal spray mupirocin 2 % topical ointment 1 applic topical BID #22 grams 06/19/25 06/30/25 Rx (Centany) nystatin 100,000 unit/mL oral 4 ml PO QID 14 days #224 mL 06/19/25 06/30/25 Rx suspension Patient hx anesthesia problems: none Family hx anesthesia problems: none Results Review: All pre-operative results and documents have been reviewed as part of the pre-operative evaluation. 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 Internal hemorrhoids Sigmoid diverticulosis Melena BMI 26.0-26.9,adult Acute viral pharyngitis Right foot pain Vitamin D deficiency Seasonal allergic rhinitis History of kidney stones Low back pain radiating to left leg Mixed hyperlipidemia Depression with anxiety Urinary frequency Osteoarthritis involving multiple joints on both sides of body COPD exacerbation History of peptic ulcer History of tobacco abuse Surgical History Surgical History History of laparoscopic Dario patch repair of perforated peptic ulcer Laparoscopic repair of perforated duodenal ulcer with omental Dario patch 05/04 Dr. Alexandra No significant past surgical history Family History Family History Mother Hypertension Cerebrovascular accident, Onset Age: 72 Sibling Asthma Diabetes mellitus Father Acute myocardial infarction Patient's father is , Onset Age: 71 Family history of coronary artery disease Family history of congestive heart failure Grandparent Family history of malignant neoplasm Acute myocardial infarction Cerebrovascular accident Social History Social History Smoking packs per day: 2 Smoking cigarettes per day: 40.0 Years smoked: 40 Smoking pack-years: 80.00 Smoking status: Former smoker Second hand tobacco smoke exposure: No Additional smoking assessment comments: STATES QUIT 2007 Alcohol intake: never Substance use: never Substance use type: does not use Lack of Transportation: No Lack of Food: Never True Current Housing: I Have Housing Concerned About Future Housing: No Difficulty Paying Gas/Electric Bills: No Difficulty Paying for Meds: No Currently Unemployed: No Education: High School Diploma/GED Difficulty w/ Childcare or Family Care: No Living arrangements: alone Occupation/Education: retired Gender identity (if verbalized by the patient): Female Spiritual care concerns: No Agree to blood products: Yes Anes - Eval Final PreProcedure Day of Procedure 06/30/25 08:31 Patient weight: normal Heart: regular rate and rhythm Lungs: clear to auscultation Airway: Mallampati scale class II Neurological: alert and oriented Last oral intake: >/= 8 hours ASA classification: III Emergent: no Anesthetic plan: proceed Anesthesia type and monitoring: general GIVS and standard monitoring Results Review: All pre-operative results and documents have been reviewed as part of the pre-operative evaluation. Informed Consent: The patient's anesthetic plan and its attendant risks and benefits were discussed with the patient/family/POA. Questions were solicited and answers provided to the satisfaction of the patient/family/POA.
[2025-06-30] MEDS: LACTATED RINGERS 1,000 ML 150 ML IV CONT (08:41)
--- NOTE | 2025-06-30 09:08 | WPDHPUPDATE1 ---
History and Physical Update Update Date/Time: 06/30/25 09:08 History and Physical has been reviewed, including an updated exam of the patient. There are NO changes in the patient's condition. Risks, benefits, and alternatives have been discussed and questions answered. Patient agrees to proceed with procedure.
[2025-06-30 09:23] VITALS: BP 114/78; PULSE 86; RESP 18; O2SAT 93
[2025-06-30 09:33] VITALS: BP 121/62; PULSE 82; RESP 20; O2SAT 98
[2025-06-30 09:43] VITALS: BP 143/69; PULSE 77; RESP 20; O2SAT 98
[2025-06-30 10:25] LABS: HPYLORIRESULT Negative (Negative)
== END 2025-06-30 10:00 | disposition home or self-care (01) ==
PROVIDERS: Visit Provider Surgery
PROC: 0DJ08ZZ Inspection of Upper Intestinal Tract, Via Natural or Artificial Opening Endoscopic (ICD-10-PCS; CPT 43239; principal; 2025-06-30 09:30)
DX: Z48.815 Encounter for surgical aftercare following surgery on the digestive system (principal); K44.9 Diaphragmatic hernia without obstruction or gangrene; E53.8 Deficiency of other specified B group vitamins; I12.9 Hypertensive chronic kidney disease with stage 1 through stage 4 chronic kidney disease, or unspecified chronic kidney disease; N18.30 Chronic kidney disease, stage 3 unspecified; E55.9 Vitamin D deficiency, unspecified; E78.2 Mixed hyperlipidemia; R35.0 Frequency of micturition; J44.9 Chronic obstructive pulmonary disease, unspecified; M17.11 Unilateral primary osteoarthritis, right knee; G47.34 Idiopathic sleep related nonobstructive alveolar hypoventilation; F41.8 Other specified anxiety disorders; Z98.890 Other specified postprocedural states; Z79.51 Long term (current) use of inhaled steroids; Z79.82 Long term (current) use of aspirin; Z79.891 Long term (current) use of opiate analgesic; Z99.81 Dependence on supplemental oxygen; Z87.891 Personal history of nicotine dependence; Z87.11 Personal history of peptic ulcer disease; Z87.442 Personal history of urinary calculi; Z87.19 Personal history of other diseases of the digestive system; Z80.9 Family history of malignant neoplasm, unspecified; Z82.49 Family history of ischemic heart disease and other diseases of the circulatory system
CPT/HCPCS: 43239; 87081; J2704; J7120